=== PATIENT | male | born 1940 | race Caucasian/White ===

== ENCOUNTER → 2017-12-12 | Outpatient (CLI) | payer MEDICARE, OTHER ==
[~2017-12-12] MED LIST: COUM5TAB PO; IPRAAER IN; LIPI10TA OR; LORTA5 PO; METH750T2 PO; NIAC500T5 PO; PRIL40CA PO
--- NOTE | 2017-12-12 12:55 | RADRPT ---
EXAM DATE/TIME: 12/12/2017 11:41 [facility] COMPARISON: CTA CHEST W 3D RECON, August 22, 2011, 17:00. INDICATIONS : Lung nodules. RADIATION DOSE: 6.99 CTDIvol (mGy) MEDICAL HISTORY : Deep venous thrombosis. Gastroesophageal reflux disease. Kidney cancer. SURGICAL HISTORY : Chemotherapy. ENCOUNTER: Initial ACUITY: 1 day PAIN SCALE: 0/10 LOCATION: Bilateral chest TECHNIQUE: Volumetric scanning of the chest was performed. Using automated exposure control and adjustment of t he mA and/or kV according to patient size, radiation dose was kept as low as reasonably achievable to obtain optimal diagnostic quality images. DICOM format image data is available electronically for r eview and comparison. Follow-up recommendations for detected pulmonary nodules are based at a minimum on nodule size and pa tient risk factors according to Fleischner Society Guidelines. FINDINGS: LUNGS: There is severe centrilobular and bursal emphysema bilaterally. In the peripheral and subpleural righ t upper lobe there is a chronic traction bronchiectasis and parenchymal opacity. However, this findin g has decreased since the prior study. In the right lower lobe there is a centrally calcified stable 8mm pulmonary nodule. No other pulmonary nodules are seen. PLEURAE: There is no pleural thickening or pleural effusion. MEDIASTINUM: The heart and great vessels demonstrate no acute abnormality. There is coronary artery calcification . There is no mediastinal or hilar lymphadenopathy. AXILLAE: Within normal limits. No lymphadenopathy. MUSCULOSKELETAL: There are degenerative changes of the thoracic spine. MISCELLANEOUS: The visualized upper abdominal organs demonstrate no acute abnormality. A small hiatal hernia is pres ent. There is a partially visualized right upper pole renal cyst measuring approximately 2.7 cm. CONCLUSION: 1. Stable 8 mm centrally calcified right lower lobe nodule. Its stability since July 2011 is indic ative of a benign process. No other pulmonary nodule is identified. 2. Chronic traction bronchiectasis and airspace opacity in the right upper lobe. There is severe emph ysema. 3. No acute findings include coronary artery calcification and small hiatal hernia. Rohit Choi MD on December 12, 2017 at 12:46 Board Certified Radiologist. This report was verified electronically.
== END ==
LOC: HRSP 10:31
DX: J44.9 Chronic obstructive pulmonary disease, unspecified (principal); R91.8 Other nonspecific abnormal finding of lung field
CPT/HCPCS: 71250; 94060; 94726; 94729

== ENCOUNTER 2018-02-04 23:38 | Observation (INO) | payer MEDICARE, OTHER ==
[~2018-02-04] VITALS: Ht 167.6 cm; Wt 72.5 kg
[2018-02-04 23:52] VITALS: BP 190/80; PULSE 87; RESP 18; TEMP 97; O2SAT 95
[2018-02-05] VITALS (12 sets, daily range): BP systolic 85–209; BP diastolic 56–107; PULSE 67–86; RESP 16–20; TEMP 96–97.3; O2SAT 94–96
[2018-02-05] MEDS ORDERED: SODIUM CHLORIDE 0.9% FLUSH 10 ML FLUSH IVF PRN (00:15)
--- NOTE | 2018-02-05 00:19 | PD ---
HPI Chief Complaint: Slurred speech Time Seen by Provider: 00:07 Travel History International Travel<30 days: No Contact w/Intl Traveler<30days: No Traveled to known affect area: No History of Present Illness HPI The patient is a 78-year-old male that today he complains of a right temporal headache, aching pain with 6/10 intensity, and slurred speech about 1 hour ago. The speech has resolved but the headache is still there. The patient does not take aspirin. He is on Eliquis for blood clots including pulmonary emboli. He denies any nausea or vomiting. The slurred speech lasted for about 20 minutes. PFSH Past Medical History Arthritis: Yes Asthma: Yes Depression: Yes Heart Rhythm Problems: No Cancer: Yes (kidney) Cardiovascular Problems: No High Cholesterol: Yes Chemotherapy: Yes Chest Pain: No Congestive Heart Failure: No COPD: No Deep Vein Thrombosis: Yes Gastrointestinal Disorders: No GERD: Yes Genitourinary: No Hiatal Hernia: No Hypertension: No Kidney Stones: No Musculoskeletal: No Neurologic: No Reproductive: No Respiratory: No Renal Failure: No Sleep Apnea: No Ulcer: No Past Surgical History Abdominal Surgery: No Cardiac Surgery: No Ear Surgery: No Endocrine Surgery: No Eye Surgery: No Genitourinary Surgery: Yes Neurologic Surgery: No Oral Surgery: Yes Pacemaker: No Thoracic Surgery: No Other Surgery: Yes Social History Alcohol Use: No Tobacco Use: No Substance Use: No Allergies-Medications (Allergen,Severity, Reaction): Coded Allergies: No Known Allergies (Verified Adverse Reaction, Unknown, 02/05/18) Reported Meds & Prescriptions Reported Meds & Active Scripts Active Reported Combivent Respimat Inh (Ipratropium-Albuterol Inh) 20-100 Half-[address]/Act Aero 1 Puff INH QID Niacin 500 Mg Tab 500 Mg PO DAILY Eliquis (Apixaban) 2.5 Mg Tab 2.5 Mg PO BID Atorvastatin (Atorvastatin Calcium) 10 Mg Tab 10 Mg PO HS Omeprazole 40 Mg Cap 40 Mg PO DAILY Metformin (Metformin HCl) 500 Mg Tab 250 Mg PO BIDPC Maxzide-25 (Triamterene-Hydrochlorothiazide) 37.5-25 Mg Tab 1 Tab PO DAILY Gabapentin 300 Mg Cap 300 Mg PO TID Review of Systems Except as stated in HPI: all other systems reviewed are Neg Physical Exam Narrative GENERAL: The patient is alert, oriented 3 in minimal apparent distress with his headache. His vital signs show blood pressure 190/80 but are otherwise normal. SKIN: Focused skin assessment warm/dry. HEAD: Atraumatic. Normocephalic. EYES: Pupils equal and round. No scleral icterus. No injection or drainage. ENT: No nasal bleeding or discharge. Mucous membranes pink and moist. NECK: Trachea midline. No JVD. CARDIOVASCULAR: Regular rate and rhythm. No murmur appreciated. RESPIRATORY: No accessory muscle use. Clear to auscultation. Breath sounds equal bilaterally. GASTROINTESTINAL: Abdomen soft, non-tender, nondistended. Hepatic and splenic margins not palpable. MUSCULOSKELETAL: No obvious deformities. No clubbing. No cyanosis. No edema. NEUROLOGICAL: Awake and alert. No obvious cranial nerve deficits. Motor grossly within normal limits. Normal speech. PSYCHIATRIC: Appropriate mood and affect; insight and judgment normal. Data Data Last Documented VS Vital Signs Date Time Temp Pulse Resp B/P (MAP) Pulse Ox O2 Delivery O2 Flow Rate FiO2 02/05/18 01:39 79 16 96 Nasal Cannula 2.00 194/107 (136) 02/04/18 23:52 97.0 Orders Orders Electrocardiogram (02/05/18 00:08) Prothrombin Time / Inr (Pt) (02/05/18 00:08) Act Partial Throm Time (Ptt) (02/05/18 00:08) Complete Blood Count With Diff (02/05/18 00:08) Comprehensive Metabolic Panel (02/05/18 00:08) Troponin I (02/05/18 00:08) Urinalysis - C+S If Indicated (02/05/18 00:08) Ct Brain W/O Iv Contrast(Rout) (02/05/18 00:08) Ecg Monitoring (02/05/18 00:08) Iv Access Insert/Monitor (02/05/18 00:08) Oximetry (02/05/18 00:08) Sodium Chloride 0.9% Flush (Ns Flush) (02/05/18 00:15) Morphine Inj (Morphine Inj) (02/05/18 00:45) Ondansetron Inj (Zofran Inj) (02/05/18 01:00) Enalaprilat Inj (Vasotec Inj) (02/05/18 01:45) Place In Observation (02/05/18 ) Labs Laboratory Tests Test 02/05/18 00:35 02/05/18 01:00 White Blood Count 9.0 TH/MM3 Red Blood Count 5.78 MIL/MM3 Hemoglobin 16.5 GM/DL Hematocrit 49.6 % Mean Corpuscular Volume 85.9 FL Mean Corpuscular Hemoglobin 28.6 PG Mean Corpuscular Hemoglobin Concent 33.3 % Red Cell Distribution Width 13.1 % Platelet Count 200 TH/MM3 Mean Platelet Volume 8.4 FL Neutrophils (%) (Auto) 75.9 % Lymphocytes (%) (Auto) 17.1 % Monocytes (%) (Auto) 5.2 % Eosinophils (%) (Auto) 1.1 % Basophils (%) (Auto) 0.7 % Neutrophils # (Auto) 6.8 TH/MM3 Lymphocytes # (Auto) 1.5 TH/MM3 Monocytes # (Auto) 0.5 TH/MM3 Eosinophils # (Auto) 0.1 TH/MM3 Basophils # (Auto) 0.1 TH/MM3 CBC Comment AUTO DIFF Differential Comment AUTO DIFF CONFIRMED Platelet Estimate NORMAL Platelet Morphology Comment NORMAL Red Cell Morphology Comment NORMAL Prothrombin Time 11.3 SEC Prothromb Time International Ratio 1.1 RATIO Activated Partial Thromboplast Time 33.4 SEC Blood Urea Nitrogen 27 MG/DL Creatinine 1.50 MG/DL Random Glucose 152 MG/DL Total Protein 8.3 GM/DL Albumin 4.1 GM/DL Calcium Level 9.6 MG/DL Alkaline Phosphatase 92 U/L Aspartate Amino Transf (AST/SGOT) 14 U/L Alanine Aminotransferase (ALT/SGPT) 25 U/L Total Bilirubin 0.7 MG/DL Sodium Level 137 MEQ/L Potassium Level 3.7 MEQ/L Chloride Level 100 MEQ/L Carbon Dioxide Level 28.9 MEQ/L Anion Gap 8 MEQ/L Estimat Glomerular Filtration Rate 45 ML/MIN Troponin I LESS THAN 0.02 NG/ML Urine Color YELLOW Urine Turbidity CLEAR Urine pH 7.5 Urine Specific [place] 1.020 Urine Protein 100 mg/dL Urine Glucose (UA) 100 mg/dL Urine Ketones NEG mg/dL Urine Occult Blood TRACE Urine Nitrite NEG Urine Bilirubin NEG Urine Urobilinogen 0.2 MG/DL Urine Leukocyte Esterase NEG Urine RBC 3-5 /hpf Urine WBC 0-2 /hpf Urine Squamous Epithelial Cells 0-5 /hpf Urine Bacteria NONE /hpf Microscopic Urinalysis Comment CULT NOT INDICATED MDM Medical Decision Making Medical Screen Exam Complete: Yes Emergency Medical Condition: Yes Medical Record Reviewed: Yes Interpretation(s) The CT brain shows no acute intracranial disease. The complete metabolic profile shows a BUN of 27, creatinine 1.5, GFR 45 with glucose 152 and total protein 8.3 but is otherwise unremarkable. The troponin I is normal. The pro time is 11.3 with an INR of 1.1 and APTT is 33.4. The CBC is normal and the EKG is normal with normal sinus rhythm rate of 81. Differential Diagnosis TIA, CVA, electrolyte disorder, hypo-/hyperglycemia, anemia Narrative Course The patient has had a TIA. He is completely baseline at this time and has normal speech. He is already on Eliquis for pulmonary emboli. He will be admitted for possible MRI and neurological consultation. Diagnosis Primary Impression: TIA (transient ischemic attack) Admitting Information Admitting Physician Requests: Jean-Paul Ivy MD Feb 05, 2018 00:19
[2018-02-05] MEDS ORDERED: NIAC500T5 PO (00:28)
[2018-02-05] MEDS ORDERED: METF500T PO (00:28)
[2018-02-05] MEDS ORDERED: APIX2.5T PO (00:28)
[2018-02-05] MEDS ORDERED: MAXZTAB PO (00:28)
[2018-02-05] MEDS ORDERED: IPRAAER INH (00:28)
[2018-02-05] MEDS ORDERED: ATOR10TA15 PO (00:28)
[2018-02-05] MEDS ORDERED: GABA300C5 PO (00:28)
[2018-02-05] MEDS ORDERED: OMEP40CA2 PO (00:28)
--- NOTE | 2018-02-05 00:37 | RADRPT ---
EXAM DATE/TIME: 02/05/2018 00:21 [facility] COMPARISON: No previous studies available for comparison. INDICATIONS : Blurred vision and slurred speech. Cephalgia. RADIATION DOSE: 56.30 CTDIvol (mGy) MEDICAL HISTORY : Carcinoma, bladder. Deep venous thrombosis. SURGICAL HISTORY : None. ENCOUNTER: Initial ACUITY: 1 day PAIN SCALE: 6/10 LOCATION: cranial TECHNIQUE: Multiple contiguous axial images were obtained of the head. Using automated exposure control and adj ustment of the mA and/or kV according to patient size, radiation dose was kept as low as reasonably a chievable to obtain optimal diagnostic quality images. DICOM format image data is available electro nically for review and comparison. FINDINGS: CEREBRUM: The ventricles are normal for age. No evidence of midline shift, mass lesion, hemorrhage or acute in farction. No extra-axial fluid collections are seen. POSTERIOR FOSSA: The cerebellum and brainstem are intact. The 4th ventricle is midline. The cerebellopontine angle i s unremarkable. EXTRACRANIAL: The visualized portion of the orbits is intact. SKULL: The calvaria is intact. No evidence of skull fracture. CONCLUSION: No acute intracranial disease. Gerald Bourne MD on February 05, 2018 at 0:32 Board Certified Radiologist. This report was verified electronically.
[2018-02-05] MEDS ORDERED: MORPHINE SULFATE 4 MG/ML INJ IV PUSH ONE (00:45)
[2018-02-05 00:49] LABS: AUTOMATED NEUTROPHIL # 6.8 TH/MM3 (1.8-7.7); BASOPHIL # 0.1 TH/MM3 (0-0.2); BASOPHIL % 0.7 % (0.0-2.0); EOSINOPHIL # 0.1 TH/MM3 (0-0.4); EOSINOPHIL % 1.1 % (0.0-4.0); HEMATOCRIT 49.6 % (39.0-51.0); HEMOGLOBIN 16.5 GM/DL (13.0-17.0); LYMPH % 17.1 % (9.0-44.0); LYMPHOCYTE # 1.5 TH/MM3 (1.0-4.8); MEAN CELL VOLUME 85.9 FL (80.0-100.0); MEAN CORPUSCULAR HEMOGLOBIN 28.6 PG (27.0-34.0); MEAN CORPUSCULAR HGB CONC 33.3 % (32.0-36.0); MEAN PLATELET VOLUME 8.4 FL (7.0-11.0); MONO % 5.2 % (0.0-8.0); MONOCYTE # 0.5 TH/MM3 (0-0.9); NEUT % 75.9 % (16.0-70.0); PLATELET COUNT 200 TH/MM3 (150-450); RED BLOOD COUNT 5.78 MIL/MM3 (4.50-5.90); RED CELL DISTRIBUTION WIDTH 13.1 % (11.6-17.2)
[2018-02-05 01:00] LABS: CHLORIDE 100 MEQ/L (98-107); SODIUM (NA) 137 MEQ/L (136-145)
[2018-02-05] MEDS ORDERED: ONDANSETRON HCL 4 MG/2 ML VIAL IV ONE (01:00)
[2018-02-05 01:03] LABS: ALBUMIN 4.1 GM/DL (3.4-5.0); BICARBONATE 28.9 MEQ/L (21.0-32.0); BLOOD UREA NITROGEN 27 MG/DL (7-18); CALCIUM 9.6 MG/DL (8.5-10.1); GLUCOSE,RANDOM 152 MG/DL (74-106)
[2018-02-05 01:04] LABS: INTERNATIONAL NORMALIZED RATIO 1.1 RATIO; PROTHROMBIN TIME - PATIENT 11.3 SEC (9.8-11.6)
[2018-02-05 01:06] LABS: ALT (GPT) 25 U/L (12-78)
[2018-02-05 01:07] LABS: AST (GOT) 14 U/L (15-37); GLOMERULAR FILTRATION RATE 45 ML/MIN (>89)
[2018-02-05 01:08] LABS: TOTAL BILIRUBIN ADULT 0.7 MG/DL (0.2-1.0)
[2018-02-05 01:09] LABS: ALKALINE PHOSPHATASE 92 U/L (45-117); TOTAL PROTEIN 8.3 GM/DL (6.4-8.2)
[2018-02-05 01:11] LABS: TROPONIN I LESS THAN 0.02 NG/ML (0.02-0.05)
[2018-02-05 01:31] LABS: BILIRUBIN, URINE NEG (NEG); BLOOD, URINE TRACE (NEG); GLUCOSE,URINE 100 mg/dL (NEG); KETONE, URINE NEG (NEG); NITRITE,URINE NEG (NEG); PH, URINE 7.5 (5.0-8.5); URINE COLOR YELLOW (YELLW/STRAW); URINE LEUKOCYTE ESTERASE NEG (NEG)
[2018-02-05 01:37] LABS: SQUAMOUS EPITHELIAL CELL URINE 0-5 /hpf (0-5); WBC, URINE 0-2 /hpf (0-5)
[2018-02-05] MEDS ORDERED: ENALAPRILAT 2.5 MG/2 ML VIAL IV PUSH ONE (01:45)
[2018-02-05] MEDS ORDERED: GLUCAGON 1 MG/ML VIAL OTHER PRN ×2 (01:45→21:15)
[2018-02-05] MEDS ORDERED: SODIUM CHLORIDE 0.9% FLUSH 10 ML FLUSH IV FLUSH PRN ×2 (01:45→21:15)
[2018-02-05] MEDS ORDERED: DEXTROSE 50% IN WATER 50 ML VIAL(D50) IV PUSH PRN ×2 (01:45→21:15)
[2018-02-05] MEDS: HEPARIN SODIUM - SQ 10,000 UNITS/ML VIAL SQ SCH ×2 (03:01→17:24)
[2018-02-05] MEDS: INSULIN ASPART SUPPLEMENTAL SCALE SQ SCH ×4 (08:00→21:00)
[2018-02-05] MEDS: SODIUM CHLORIDE 0.9% FLUSH 10 ML FLUSH IV FLUSH SCH ×2 (09:12→21:00)
[2018-02-05] MEDS: ASPIRIN 325 MG TAB PO SCH (09:12)
[2018-02-05] MEDS ORDERED: ATORVASTATIN 40 MG TAB PO ONE (09:15)
[2018-02-05] MEDS ORDERED: NAPROXEN 500 MG TAB PO ONE (09:15)
--- NOTE | 2018-02-05 09:32 | HHI.HP ---
[facility] Stephon Linder MD Admission Diagnosis TIA Diagnoses: Chief Complaint: Headache, dizziness, difficulty speaking Travel History International Travel<30 Days: No Contact w/Intl Traveler <30 Da: No Traveled to Known Affected Are: No History of Present Illness 78-year-old white male admitted for possible strokelike symptoms. Patient was in his usual state of health until last night when his ongoing dizziness and right-sided headache from earlier in the week became worse and became associated with new onset nausea. Headache was photophobic but not phonophobic, mainly starts over his right eye travels to the right side of his head. Per the ER records his headache was 6 out of 10,. This was also associated with some expressive aphasia, says he knew what he wanted to say but just could not say it. He thought his speech was slurred. But he denies having a facial droop. Denies having any focal weakness in and of use 4 extremities. Reports having generalized weakness with difficulty walking but not limping to any one side. Denies any acute visual disturbances. Denies have any abdominal pain or chest pain. Patient is fully oriented at this time with intact insight. In the emergency room a head CT was performed which was negative. An EKG was performed which I independently reviewed which showed normal sinus rhythm. Patient's past medical history significant for pulmonary embolism as well as a DVT in the past, now takes Eliquis for it regularly. Denies having any strokes in the past. Social history significant for smoking which he says he stopped about 30 years ago. Denies drinking. Family history significant for hypertension. Review of Systems Except as stated in HPI: all other systems reviewed are Neg Past Family Social History Allergies: Coded Allergies: No Known Allergies (Verified Allergy, Unknown, 02/05/18) Physical Exam Vital Signs Vital Signs Date Time Temp Pulse Resp B/P (MAP) Pulse Ox O2 Delivery O2 Flow Rate FiO2 02/05/18 03:20 96.8 74 20 85/62 (70) 96 170/92 (118) 02/05/18 03:06 73 02/05/18 02:40 72 16 95 Nasal Cannula 2.00 147/79 (101) 02/05/18 02:08 75 16 95 Nasal Cannula 2.00 179/92 (121) 02/05/18 01:39 79 16 96 Nasal Cannula 2.00 194/107 (136) 02/05/18 00:18 86 18 94 Room Air 02/05/18 00:17 86 18 209/93 (131) 94 Room Air 02/04/18 23:52 97.0 87 18 190/80 (116) 95 Physical Exam VS: afebrile GENERAL: Lying in bed, awake, alert, no acute distress SKIN: Warm and dry. EYES: Pupils equal and round. No scleral icterus. No injection or drainage. ENT: No nasal bleeding or discharge. Mucous membranes pink and moist. CARDIOVASCULAR: Regular rate and rhythm. no murmurs RESPIRATORY: No accessory muscle use. Clear to auscultation. Breath sounds equal bilaterally. GASTROINTESTINAL: Abdomen soft, non-tender, nondistended. Extremities: No clubbing, cyanosis, or edema. No obvious deformities. MUSCULOSKELETAL: grossly intact ROM with 5/5 strength in upper and lower extremities proximally; adequate muscle bulk and tone for age and habitus NEUROLOGICAL: Awake and alert. No obvious cranial nerve deficits. No facial droop nor slurred speech noted. Patellar reflexes are intact +2 bilaterally. Intact sensation to light touch bilaterally over face, distal upper and lower extremities, intact plantar flexion dorsiflexion PSYCHIATRIC: Appropriate mood and affect; insight and judgment normal. Laboratory Laboratory Tests Test 02/05/18 00:35 02/05/18 01:00 White Blood Count 9.0 Red Blood Count 5.78 Hemoglobin 16.5 Hematocrit 49.6 Mean Corpuscular Volume 85.9 Mean Corpuscular Hemoglobin 28.6 Mean Corpuscular Hemoglobin Concent 33.3 Red Cell Distribution Width 13.1 Platelet Count 200 Mean Platelet Volume 8.4 Neutrophils (%) (Auto) 75.9 Lymphocytes (%) (Auto) 17.1 Monocytes (%) (Auto) 5.2 Eosinophils (%) (Auto) 1.1 Basophils (%) (Auto) 0.7 Neutrophils # (Auto) 6.8 Lymphocytes # (Auto) 1.5 Monocytes # (Auto) 0.5 Eosinophils # (Auto) 0.1 Basophils # (Auto) 0.1 CBC Comment AUTO DIFF Differential Comment AUTO DIFF CONFIRMED Platelet Estimate NORMAL Platelet Morphology Comment NORMAL Red Cell Morphology Comment NORMAL Prothrombin Time 11.3 Prothromb Time International Ratio 1.1 Activated Partial Thromboplast Time 33.4 Blood Urea Nitrogen 27 Creatinine 1.50 Random Glucose 152 Total Protein 8.3 Albumin 4.1 Calcium Level 9.6 Alkaline Phosphatase 92 Aspartate Amino Transf (AST/SGOT) 14 Alanine Aminotransferase (ALT/SGPT) 25 Total Bilirubin 0.7 Sodium Level 137 Potassium Level 3.7 Chloride Level 100 Carbon Dioxide Level 28.9 Anion Gap 8 Estimat Glomerular Filtration Rate 45 Troponin I LESS THAN 0.02 Urine Color YELLOW Urine Turbidity CLEAR Urine pH 7.5 Urine Specific [place] 1.020 Urine Protein 100 Urine Glucose (UA) 100 Urine Ketones NEG Urine Occult Blood TRACE Urine Nitrite NEG Urine Bilirubin NEG Urine Urobilinogen 0.2 Urine Leukocyte Esterase NEG Urine RBC 3-5 Urine WBC 0-2 Urine Squamous Epithelial Cells 0-5 Urine Bacteria NONE Microscopic Urinalysis Comment CULT NOT INDICATED Result Diagram: 02/05/18 0035 02/05/18 003 Imaging Last Impressions Head CT 02/05/18 0008 Signed Impressions: Service Date/Time: January 00:21 - CONCLUSION: No acute intracranial disease. Gerald Bourne MD Caprini VTE Risk Assessment Caprini VTE Risk Assessment: Mod/High Risk (score >= 2) Caprini Risk Assessment Model Point Value = 1 Point Value = 2 Point Value = 3 Point Value = 5 Age 41-60 Minor surgery BMI > 25 kg/m2 Swollen legs Varicose veins or History of unexplained or recurrent spontaneous Oral contraceptives or hormone replacement Sepsis (< 1 month) Serious lung disease, including pneumonia (< 1 month) Abnormal pulmonary function Acute myocardial infarction Congestive heart failure (< 1 month) History of inflammatory bowel disease Medical patient at bed rest Age 61-74 Arthroscopic surgery Major open surgery (> 45 min) Laparoscopic surgery (> 45 min) Malignancy Confined to bed (> 72 hours) Immobilizing plaster cast Central venous access Age >= 75 History of VTE Family history of VTE Factor V Leiden Prothrombin [id number] Lupus anticoagulant Anticardiolipin antibodies Elevated serum homocysteine Heparin-induced thrombocytopenia Other congenital or acquired thrombophilia Stroke (< 1 month) Elective arthroplasty Hip, pelvis, or leg fracture Acute spinal cord injury (< 1 month) Prophylaxis Regimen Total Risk Factor Score Risk Level Prophylaxis Regimen 0-1 Low Early ambulation 2 Moderate Order ONE of the following: *Sequential Compression Device (SCD) *Heparin 5000 units SQ BID 3-4 Higher Order ONE of the following medications: *Heparin 5000 units SQ TID *Enoxaparin/Lovenox 40 mg SQ daily (WT < 150 kg, CrCl > 30 mL/min) *Enoxaparin/Lovenox 30 mg SQ daily (WT < 150 kg, CrCl > 10-29 mL/min) *Enoxaparin/Lovenox 30 mg SQ BID (WT < 150 kg, CrCl > 30 mL/min) AND/OR *Sequential Compression Device (SCD) 5 or more Highest Order ONE of the following medications: *Heparin 5000 units SQ TID (Preferred with Epidurals) *Enoxaparin/Lovenox 40 mg SQ daily (WT < 150 kg, CrCl > 30 mL/min) *Enoxaparin/Lovenox 30 mg SQ daily (WT < 150 kg, CrCl > 10-29 mL/min) *Enoxaparin/Lovenox 30 mg SQ BID (WT < 150 kg, CrCl > 30 mL/min) AND *Sequential Compression Device (SCD) Assessment and Plan Assessment and Plan 78-year-old white male being admitted for possible strokelike symptoms Strokelike symptoms including expressive aphasia -Questionable TIA,, I suspect more likely ocular migraine variant -We will engage in permissive hypertension for the time being, CT head is negative, -MRI/MRA, echocardiogram, carotid ultrasound -We will give aspirin and Lipitor -speech therapy for expressive aphasia (which is not present at this time) -permissive HTN Headaches -Most likely an ocular migraine variant -will obtain ESR to r/o temporal arteritis -We will give one-time dose of naproxen 500 mg Neurology has been consulted to help decipher between TIA versus headache variant as the cause of symptoms upon presentation. If cleared with neurology, patient can possibly be discharged today. DM - LDSS Lovenox while inpt, may transition to eliquis upon discharge (for hx of VTEs). Fidel Bell MD Feb 05, 2018 09:32
--- NOTE | 2018-02-05 10:35 | RADRPT ---
EXAM DATE/TIME: 02/05/2018 08:37 [facility] COMPARISON: No previous studies available for comparison. INDICATIONS : Transient ischemic attack. MEDICAL HISTORY : Deep venous thrombosis. Hypercholesterolemia. Carcinoma, bladder. HTN. COPD. Asthma. Pulmonary emboli sm. GERD. Renal calculi. Arthritis. Diabetes. BPH. Depression. SURGICAL HISTORY : Bladder cancer removal x3. Chemotherapy. ENCOUNTER: Initial ACUITY: 1 day PAIN SCORE: 0/10 LOCATION: Bilateral neck PEAK SYSTOLIC VELOCITIES (cm/sec): ICA/CCA RATIO: Right: 1.4 Left: 0.8 ICA: Right: 80 Left: 62 CCA: Right: 59 Left: 80 ECA: Right: 112 Left: 96 VERTEBRAL: Right: 41 antegrade Left: 54 antegrade Elevated flow velocities and ICA/CCA ratios have been found to correlate with increased degrees of vessel stenosis, calculated as percentage of diameter relative to a normal segment of distal ICA/CCA FINDINGS: RIGHT CAROTID: There is mild atherosclerotic plaque in the carotid bulb and proximal internal artery. LEFT CAROTID: There is mild atherosclerotic plaque in the carotid bulb and proximal internal carotid artery. VERTEBRAL ARTERIES: Antegrade flow is seen in both vertebral arteries. MISCELLANEOUS: None. CONCLUSION: 1. Mild atherosclerotic plaque in the carotid bulbs and proximal internal carotid arteries bilaterall y. However, less than 50% stenosis is present within either internal carotid artery. 2. There is antegrade flow within both vertebral arteries. Rohit Choi MD on February 05, 2018 at 10:31 Board Certified Radiologist. This report was verified electronically.
[2018-02-05] MEDS: GABAPENTIN 300 MG CAP PO SCH ×2 (11:49→17:25)
[2018-02-05] MEDS: PANTOPRAZOLE SOD 40 MG DELAYED RELEASE TAB PO SCH (11:49)
[2018-02-05] MEDS: NIACIN 500 MG EXTENDED RELEASE TAB PO SCH (11:49)
[2018-02-05] MEDS ORDERED: NON-FORMULARY DRUG (Ipratropium-Albuterol Inh (Combivent Respimat Inh) 1 PUFF) INH SCH (13:00)
[2018-02-05] MEDS: ALBUTEROL SULFATE 90 MCG/ACT HFA 8 GM INHALER INH SCH ×3 (13:00→21:49)
--- NOTE | 2018-02-05 13:55 | RADRPT ---
EXAM DATE/TIME: 02/05/2018 10:07 [facility] COMPARISON: No previous studies available for comparison. INDICATIONS : CVA. Weakness in all four extremities for two days. MEDICAL HISTORY : Hypertension. Diabetes mellitus type 2. Carcinoma, bladder. SURGICAL HISTORY : Bladder cancer removed and bone spurs from jaw removed. ENCOUNTER: Initial ACUITY: 1 day PAIN SCORE: 0/10 LOCATION: Head. Please note a normal MRA of the brain does not entirely exclude the possibility of a small aneurysm, nor the possibility of distal intracranial vessel disease. TECHNIQUE: 3D time of flight MRA was performed. Source images, multiplanar STS MIP, and 3D volume MIP reconstru ctions were reviewed. FINDINGS: There is excellent visualization of the major intracranial arteries out to the second-order branch ve ssels. There is no evidence for aneurysm, vessel truncation or stenosis, and no evidence for vascula r malformation. 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 CONCLUSION: 1. Anatomic variant of the [place] as above. 2. Otherwise negative. Intracranial vessels are patent without aneurysmal disease. Tony Dupree MD on February 05, 2018 at 13:47 Board Certified Radiologist. This report was verified electronically.
--- NOTE | 2018-02-05 14:00 | RADRPT ---
EXAM DATE/TIME: 02/05/2018 10:07 [facility] COMPARISON: No previous studies available for comparison. INDICATIONS : CVA. Weakness in all four extremities for two days. MEDICAL HISTORY : Hypertension. Carcinoma, bladder. Diabetes mellitus type 2. SURGICAL HISTORY : Bladder cancer removed and bone spurs from jaw removed. ENCOUNTER: Initial ACUITY: 1 day PAIN SCORE: 0/10 LOCATION: head. TECHNIQUE: Multiplanar, multisequence MRI of the brain was performed without contrast. FINDINGS: CEREBRUM: The ventricles are normal for age. Minimal, symmetric cortical atrophy. No evidence of midline shift , mass lesion, hemorrhage or acute infarction. No extraaxial fluid collections are seen. The pituit guevara gland and suprasellar cistern are normal in configuration. WHITE MATTER: Mild periventricular small vessel ischemic demyelination. POSTERIOR FOSSA: The cerebellum and brainstem are intact. The 4th ventricle is midline. The cerebellopontine angle is unremarkable. The cerebellar tonsils are normal in position. DIFFUSION IMAGING: Punctate area of diffusion restriction in the posterior aspect of the right basal ganglia I believe r epresents T2 shine through as the same area shows increased signal on the ADC map. EXTRACRANIAL: The visualized portions of the orbits and paranasal sinuses are unremarkable. CONCLUSION: 1. Mild chronic changes with some cortical atrophy and periventricular small vessel ischemic demyelin ation. 2. Nothing acute. Tony Dupree MD on February 05, 2018 at 13:52 Board Certified Radiologist. This report was verified electronically.
--- NOTE | 2018-02-05 14:41 | HHI.FF ---
Face to Face Verification Diagnosis: (1) Unsteady gait Physical Therapy Order: Evaluate and Treat Occupational Therapy Order: Evaluate and Treat Home Health Nursing Order: Signs/symptoms of disease process Nursing assessment with vital signs I have seen patient Denilson Malik on 02/05/18. My clinical findings support the need for the requested home health care services because: Limited ability to care for self I certify that my clinical findings support that this patient is homebound because: Unsteady gait/balance Fidel Bell MD Feb 05, 2018 14:41
[2018-02-05 14:51] LABS: HEMOGLOBIN A1C 6.3 % (4.3-6.0)
--- NOTE | 2018-02-05 17:23 | ECHRPT ---
Indication: CVA/TIA CONCLUSIONS The left ventricular systolic function is low normal with an estimated ejection fraction in the rang e of 50- 55%. Wall thickness is normal. Normal left ventricular size. Trace aortic valve regurgitation. The pulmonary valve is not well visualized. BP: / HR: Rhythm: Technical Quality: FINDINGS LEFT VENTRICLE The left ventricular systolic function is low normal with an estimated ejection fraction in the rang e of 50- 55%. Wall thickness is normal. Normal left ventricular size. RIGHT VENTRICLE Normal right ventricular size and systolic function. LEFT ATRIUM The left atrial size is normal. RIGHT ATRIUM The right atrial size is normal. ATRIAL SEPTUM Normal atrial septal thickness without atrial level shunting by limited color doppler interrogation. AORTA The aortic root and proximal ascending aorta are normal in size on limited imaging. MITRAL VALVE Structurally normal mitral valve. No mitral valve stenosis or regurgitation. AORTIC VALVE Trace aortic valve regurgitation. TRICUSPID VALVE Structurally normal tricuspid valve. No tricuspid valve stenosis or regurgitation. PULMONARY VALVE The pulmonary valve is not well visualized. VESSELS The inferior vena cava is normal in size. PERICARDIUM No pericardial effusion. Agustín Snowden MD, FACC (Electronically Signed) Final Date:05 February 2018 17:23
[2018-02-05] MEDS ORDERED: SODIUM CHLORID 0.9% 500 ML INJ 500 ML IV ONE (20:15)
--- NOTE | 2018-02-05 21:16 | EKG ---
Date Performed: 02/05/2018 Time Performed: 00:17:11 PTAGE: 78 years EKG: Sinus rhythm Compared to previous tracing, sinus rate is slower NORMAL ECG PREVIOUS TRACING : 08/22/2011 15.35 DOCTOR: Dev Pierre Interpretating Date/Time 02/05/2018 21:14:27
--- NOTE | 2018-02-05 21:28 | MB ---
cc: Moreno Jimenez MD, PhD DATE: 02/05/2018 REASON FOR CONSULTATION: TIA versus neurologic migraine. HISTORY OF PRESENT ILLNESS: Mr. Malik is a very pleasant 78-year-old man, who has a history of DVT and PE. He was driving, had a sudden onset of double vision where he saw two lines on the road as well as slurred speech. He has been having a headache as well, which he describes as being right-sided. He does have a history of migraine headaches. His symptoms have largely resolved, but he has some mild speech difficulty. PAST MEDICAL HISTORY: History of deep venous thrombosis/pulmonary embolism for which he takes Eliquis, diabetes, history of bladder cancer. CURRENT MEDICATIONS: 1. Lipitor 40 mg daily. 2. Spiriva. 3. Neurontin 300 mg t.i.d. 4. Protonix 40 mg daily. 5. Aspirin 325 mg daily. 6. Subcutaneous heparin 5000 units b.i.d. NEUROLOGIC EXAMINATION: VITAL SIGNS: Blood pressure 129/60, pulse 73, respirations 20, temperature 97 degrees. HIGHER CORTICAL FUNCTION: Alert. Speech mildly dysarthric. Cranial nerves are intact. The extraocular movements are full. Pupils equal and reactive. 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 There is no drift. IMAGING: CT of the brain: No acute change present. MRI of the brain: Mild chronic ischemic changes, no acute stroke identified. MRA had a variant of the [place], otherwise normal intracranial vessels. Carotid ultrasound: Mild plaquing, but no significant stenosis of the carotid arteries. LABORATORY DATA: White count 9000, hemoglobin 16.5, hematocrit 49.6%, platelet count 200,000. Sedimentation rate is 2. Sodium is 137, potassium 3.7, chloride 100, CO2 of 28.9, BUN is 27, creatinine 1.5, GFR is 45, glucose 152. PT 11.3, INR 1.1, APTT 33.4. IMPRESSION: I suspect the episode is most likely a vertebrobasilar transient ischemic attack. RECOMMENDATION: Continue Eliquis and also add aspirin to the Eliquis. I would like to get an MRA of the vertebral arteries as well as an echocardiogram. Moreno Jimenez MD, PhD JOCY/rt , 09:06 PM , 09:27 PM
[2018-02-06] VITALS (7 sets, daily range): BP systolic 131–159; BP diastolic 77–84; PULSE 70–80; RESP 16–18; TEMP 96.2–98.3; O2SAT 92–95
[2018-02-06] MEDS: HEPARIN SODIUM - SQ 10,000 UNITS/ML VIAL SQ SCH (01:45)
[2018-02-06 06:38] LABS: AUTOMATED NEUTROPHIL # 4.9 TH/MM3 (1.8-7.7); BASOPHIL % 0.6 % (0.0-2.0); EOSINOPHIL # 0.1 TH/MM3 (0-0.4); EOSINOPHIL % 1.9 % (0.0-4.0); HEMATOCRIT 39.4 % (39.0-51.0); HEMOGLOBIN 13.5 GM/DL (13.0-17.0); LYMPH % 24.2 % (9.0-44.0); LYMPHOCYTE # 1.9 TH/MM3 (1.0-4.8); MEAN CELL VOLUME 85.7 FL (80.0-100.0); MEAN CORPUSCULAR HEMOGLOBIN 29.4 PG (27.0-34.0); MEAN CORPUSCULAR HGB CONC 34.3 % (32.0-36.0); MEAN PLATELET VOLUME 8.5 FL (7.0-11.0); MONO % 10.1 % (0.0-8.0); MONOCYTE # 0.8 TH/MM3 (0-0.9); NEUT % 63.2 % (16.0-70.0); PLATELET COUNT 165 TH/MM3 (150-450); RED CELL DISTRIBUTION WIDTH 13.4 % (11.6-17.2); WHITE BLOOD COUNT 7.7 TH/MM3 (4.0-11.0)
[2018-02-06 06:49] LABS: BICARBONATE 28.2 MEQ/L (21.0-32.0); CALCIUM 8.1 MG/DL (8.5-10.1); CREATININE 2.6 MG/DL (0.60-1.30)
[2018-02-06] MEDS: INSULIN ASPART SUPPLEMENTAL SCALE SQ SCH ×4 (08:20→21:00)
[2018-02-06] MEDS: ALBUTEROL SULFATE 90 MCG/ACT HFA 8 GM INHALER INH SCH ×4 (08:21→21:21)
[2018-02-06] MEDS: TIOTROPIUM BROMIDE 18 MCG INH INH SCH (08:23)
[2018-02-06] MEDS: GABAPENTIN 300 MG CAP PO SCH ×3 (08:26→17:21)
[2018-02-06] MEDS: SODIUM CHLORIDE 0.9% FLUSH 10 ML FLUSH IV FLUSH SCH ×2 (08:26→21:00)
[2018-02-06] MEDS: TRIAMTERENE/HCTZ 37.5 MG/25 MG TAB PO SCH (08:27)
[2018-02-06] MEDS: APIXABAN 2.5 MG TABLET PO SCH ×2 (08:27→21:21)
[2018-02-06] MEDS: NIACIN 500 MG EXTENDED RELEASE TAB PO SCH (08:27)
[2018-02-06] MEDS: PANTOPRAZOLE SOD 40 MG DELAYED RELEASE TAB PO SCH (08:28)
[2018-02-06] MEDS: ASPIRIN 325 MG TAB PO SCH (08:28)
[2018-02-06] MEDS ORDERED: SODIUM CHLORIDE 0.9% FLUSH 10 ML FLUSH IV FLUSH SCH (09:00)
[2018-02-06 10:48] LABS: CHOLESTEROL/ HDL RATIO 3.04 RATIO; HDL CHOLESTEROL 40.4 MG/DL (40.0-60.0)
--- NOTE | 2018-02-06 12:15 | RADRPT ---
EXAM DATE/TIME: 02/06/2018 10:33 [place] COMPARISON: No previous studies available for comparison. INDICATIONS : Dissection. MEDICAL HISTORY : Carcinoma, bladder. Diabetes mellitus type 2. Hypertension. SURGICAL HISTORY : Bladder surgery, teeth, bone spur removal. ENCOUNTER: Initial ACUITY: 2 day PAIN SCORE: 0/10 LOCATION: neck Percent stenosis is calculated using the diameter of the stenotic region over the diameter of the nor mal distal internal carotid artery. TECHNIQUE: 3D time of flight MRA of the extracranial circulation was performed using a neurovascular coil. Post processing was performed including rotating subvolume maximum intensity projections of each carotid artery, rotating full-volume maximum intensity projections of both carotid arteries, sagittal and cor onal sliding thin-slab reformations of each carotid artery, and left oblique sliding thin slab reform ation through the aortic arch to include the origin of the arch branch vessels. FINDINGS: Examination is limited due to body habitus and motion artifact. AORTIC ARCH: There is a three vessel origin of the great vessels from the aorta. No evidence of ostial narrowing. RIGHT CAROTID: The common carotid artery is intact. The carotid bulb has a normal configuration without ulceration or significant narrowing. Internal carotid artery is patent without or definitive dissection or signi ficant flow-limiting stenosis. External carotid arteries patent. LEFT CAROTID: The common carotid artery is intact. The carotid bulb has a normal configuration without ulceration or significant narrowing. Internal carotid artery is patent with less than 30% stenosis of the proxi mal internal carotid artery. Intracranial arteries otherwise patent without definitive dissection or significant additional stenoses External carotid arteries patent. VERTEBRALS: The vertebral arteries have a symmetric diameter. No significant stenotic lesions are seen. CONCLUSION: 1. Examination is limited due to body habitus and motion artifact. 2. No significant flow-limiting stenosis or definitive dissection as questioned. CTA examination woul d be beneficial in further evaluation if there is continued clinical concern although likely not feas ible given patient's azotemia. Reno Mendez MD on February 06, 2018 at 12:06 Board Certified Radiologist. This report was verified electronically.
--- NOTE | 2018-02-06 14:35 | HHI.PR ---
Subjective Remarks MRA shows no acute abnormalities. Echocardiogram shows no etiology for CVA or TIA. Patient still has some difficulty speaking compared to baseline. No other deficits are noted. Objective Vital Signs Date Time Temp Pulse Resp B/P (MAP) Pulse Ox O2 Delivery O2 Flow Rate FiO2 02/06/18 11:59 96.2 70 16 147/82 (103) 93 02/06/18 08:00 75 02/06/18 08:00 96.2 70 18 131/79 (96) 94 02/06/18 04:00 96.9 72 18 149/83 (105) 95 02/05/18 23:27 96 21 02/05/18 20:00 97.1 73 20 129/60 (83) 96 02/05/18 15:50 97.3 68 20 129/65 (86) 94 I/O 02/05/18 02/05/18 02/05/18 02/06/18 02/06/18 02/06/18 07:00 15:00 23:00 07:00 15:00 23:00 Intake Total 480 ml 1760 ml 500 ml Output Total 800 ml 1800 ml 1200 ml Balance 480 ml 960 ml -1800 ml -700 ml Intake Oral 480 ml 1760 ml IV Total 500 ml Output Urine Total 800 ml 1800 ml 1200 ml # Voids 1 1 # Bowel Movements 0 0 Result Diagram: 02/06/18 0555 02/06/18 05 Objective Remarks GENERAL: NAD, A&Ox3 HEAD: Normocephalic. NECK: Supple, trachea midline. No lymphadenopathy. EYES: No scleral icterus. No injection or drainage. CARDIOVASCULAR: Regular rate and rhythm without murmurs, gallops, or rubs. RESPIRATORY: Breath sounds equal bilaterally. No accessory muscle use. GASTROINTESTINAL: Abdomen soft, non-tender, nondistended. MUSCULOSKELETAL: No cyanosis, or edema. SKIN: Warm and dry. NEURO: No focal neurological deficitis. A/P Problem List: (1) TIA (transient ischemic attack) ICD Code: G45.9 - Transient cerebral ischemic attack, unspecified Status: Acute Assessment and Plan 78-year-old male admitted secondary to right-handed weakness and dysarthria, expressive aphasia TIA Expressive aphasia, dysarthria Imaging is negative so far Neurology following Continue aspirin Continue Lipitor Continue speech therapy Headaches Improved Continue to monitor clinically Diabetes mellitus type 2 Follow blood sugars Insulin sliding scale Diabetic diet DVT prophylaxis Dante Oscar MD Feb 06, 2018 14:34
[2018-02-06] MEDS ORDERED: WALKER WHEELS/F1 MIS (14:37)
[2018-02-06] MEDS ORDERED: TAMSULOSIN HCL 0.4 MG CAP PO ONE (14:45)
--- NOTE | 2018-02-06 19:58 | HHI.PR ---
Review/Management Diagnosis probable vertebro-basilar tia Plan continue eliquis and asa 325 mg daily ok form neuro standpoint to dc tomorrow if he has no additional TIA symptoms Please schedule outpatient follow up with me in office 2-3 weeks Diagnosis/Plan: Subjective Subjective Comments Pt had an episode of slurred speech and left sided weakness earlier this am which resolved after several minutes and he has had no further episodes Now on eliquis in addition to asa Active Medications Current Medications Medications (Trade) Dose Ordered Sig/Sampson Route Start Time Stop Time Status Last Admin (NS Flush) 2 ml BID IV FLUSH 02/05/18 09:00 02/06/18 08:26 (NS Flush) 2 ml UNSCH PRN IV FLUSH 02/05/18 01:45 (Aspirin) 325 mg DAILY PO 02/05/18 09:00 02/06/18 08:28 (D50w (Vial) Inj) 50 ml UNSCH PRN IV PUSH 02/05/18 01:45 (Glucagon Inj) 1 mg UNSCH PRN OTHER 02/05/18 01:45 (Lipitor) 40 mg HS PO 02/06/18 21:00 (Neurontin) 300 mg TID PO 02/05/18 13:00 02/06/18 17:21 (Slo-Niacin) 500 mg DAILY PO 02/05/18 10:15 02/06/18 08:27 (Protonix) 40 mg DAILY PO 02/05/18 10:15 02/06/18 08:28 (Spiriva Inh) 18 mcg DAILY INH 02/06/18 09:00 02/06/18 08:23 (Proair Hfa Inh) 1 puff QID INH 02/05/18 13:00 02/06/18 17:20 (NovoLOG SUPPLEMENTAL SCALE) 1 ACHS SQ 02/06/18 08:00 (Eliquis) 2.5 mg BID PO 02/06/18 09:00 02/06/18 08:27 (Maxzide 37.5-25 Mg) 1 tab DAILY PO 02/06/18 09:00 02/06/18 08:27 (Flomax) 0.4 mg DAILY PO 02/07/18 09:00 Allergies Allergies Coded Allergies No Known Allergies (Verified Allergy, Unknown, 02/05/18) Exam I&O / VS 02/06/18 02/06/18 02/07/18 15:00 23:00 07:00 Intake Total 500 ml Output Total 1200 ml 1800 ml Balance -700 ml -1800 ml IV Total 500 ml Output Urine Total 1200 ml 1800 ml Vital Signs Date Time Temp Pulse Resp B/P (MAP) Pulse Ox O2 Delivery O2 Flow Rate FiO2 02/06/18 16:00 97.5 76 16 153/84 (107) 92 02/06/18 15:20 93 21 02/06/18 15:00 74 02/06/18 11:59 96.2 70 16 147/82 (103) 93 02/06/18 08:00 75 02/06/18 08:00 96.2 70 18 131/79 (96) 94 02/06/18 04:00 96.9 72 18 149/83 (105) 95 02/05/18 23:27 96 21 02/05/18 20:00 97.1 73 20 129/60 (83) 96 Exam Comments alert, speech mildly dysarthric, but patient feels his baseline CN 2-12 normal MOTOR 5/5 BUE Objective Radiology Results MRA neck--limited exam. No gross abnormalities ECHO--neg Micro and Labs Laboratory Tests Test 02/06/18 05:55 White Blood Count 7.7 Red Blood Count 4.60 Hemoglobin 13.5 Hematocrit 39.4 Mean Corpuscular Volume 85.7 Mean Corpuscular Hemoglobin 29.4 Mean Corpuscular Hemoglobin Concent 34.3 Red Cell Distribution Width 13.4 Platelet Count 165 Mean Platelet Volume 8.5 Neutrophils (%) (Auto) 63.2 Lymphocytes (%) (Auto) 24.2 Monocytes (%) (Auto) 10.1 Eosinophils (%) (Auto) 1.9 Basophils (%) (Auto) 0.6 Neutrophils # (Auto) 4.9 Lymphocytes # (Auto) 1.9 Monocytes # (Auto) 0.8 Eosinophils # (Auto) 0.1 Basophils # (Auto) 0.0 CBC Comment DIFF FINAL Differential Comment Blood Urea Nitrogen 40 Creatinine 2.60 Random Glucose 103 Calcium Level 8.1 Sodium Level 132 Potassium Level 3.7 Chloride Level 96 Carbon Dioxide Level 28.2 Anion Gap 8 Estimat Glomerular Filtration Rate 24 Triglycerides Level 170 Cholesterol Level 123 LDL Cholesterol 49 HDL Cholesterol 40.4 Cholesterol/HDL Ratio 3.04 Moreno Jimenez MD PhD Feb 06, 2018 19:58
[2018-02-06] MEDS: ATORVASTATIN 40 MG TAB PO SCH (21:21)
[2018-02-07] VITALS (8 sets, daily range): BP systolic 148–219; BP diastolic 79–98; PULSE 62–88; RESP 16–18; TEMP 96.1–98; O2SAT 92–97
[2018-02-07] MEDS: INSULIN ASPART SUPPLEMENTAL SCALE SQ SCH ×4 (08:00→21:00)
[2018-02-07] MEDS: SODIUM CHLORIDE 0.9% FLUSH 10 ML FLUSH IV FLUSH SCH ×2 (09:00→21:00)
[2018-02-07] MEDS: ALBUTEROL SULFATE 90 MCG/ACT HFA 8 GM INHALER INH SCH ×4 (09:00→21:00)
[2018-02-07] MEDS: TRIAMTERENE/HCTZ 37.5 MG/25 MG TAB PO SCH (09:00)
[2018-02-07] MEDS: NIACIN 500 MG EXTENDED RELEASE TAB PO SCH (09:00)
[2018-02-07] MEDS: GABAPENTIN 300 MG CAP PO SCH ×3 (09:08→17:19)
[2018-02-07] MEDS: APIXABAN 2.5 MG TABLET PO SCH ×2 (09:08→21:02)
[2018-02-07] MEDS: TAMSULOSIN HCL 0.4 MG CAP PO SCH (09:08)
[2018-02-07] MEDS: TIOTROPIUM BROMIDE 18 MCG INH INH SCH (09:08)
[2018-02-07] MEDS: PANTOPRAZOLE SOD 40 MG DELAYED RELEASE TAB PO SCH (09:08)
[2018-02-07] MEDS: ASPIRIN 325 MG TAB PO SCH (09:08)
[2018-02-07] MEDS ORDERED: ATOR40TA16 PO (11:31)
[2018-02-07 12:41] LABS: BICARBONATE 27.3 MEQ/L (21.0-32.0); CALCIUM 9.3 MG/DL (8.5-10.1); CREATININE 2.2 MG/DL (0.60-1.30)
--- NOTE | 2018-02-07 12:54 | HHI.PR ---
Subjective Remarks Nursing denies any deteriorations last night. No reports of any further episodes of slurred speech. Patient himself says he feels better. There was a noted substantial increase in serum creatinine over the last 2 days. Objective Vital Signs Date Time Temp Pulse Resp B/P (MAP) Pulse Ox O2 Delivery O2 Flow Rate FiO2 02/07/18 12:00 97.0 88 18 219/88 (131) 94 02/07/18 08:00 86 18 183/85 (117) 92 02/07/18 07:44 78 02/07/18 04:00 97.8 78 16 166/79 (108) 95 02/07/18 00:19 98.0 79 18 148/79 (102) 97 02/06/18 20:00 98.3 80 16 159/77 (104) 95 02/06/18 16:00 97.5 76 16 153/84 (107) 92 02/06/18 15:20 93 21 02/06/18 15:00 74 I/O 02/06/18 02/06/18 02/06/18 02/07/18 02/07/18 02/07/18 07:00 15:00 23:00 07:00 15:00 23:00 Intake Total 500 ml 0 ml Output Total 1800 ml 1200 ml 1800 ml 1200 ml 1100 ml Balance -1800 ml -700 ml -1800 ml -1200 ml -1100 ml IV Total 500 ml 0 ml Output Urine Total 1800 ml 1200 ml 1800 ml 1200 ml 1100 ml # Bowel Movements 0 2 Result Diagram: 02/06/18 0555 02/07/18 1140 Objective Remarks No lower extremity edema, lungs are clear bilaterally, extraocular motions intact, no slurred speech, uvula midline, tongue midline A/P Assessment and Plan TIA Expressive aphasia, dysarthria Imaging is negative so far Neurology following -clear for discharge from their standpoint pending no further episodes Continue aspirin Continue Lipitor Continue speech therapy eliquis also per neurology Acute kidney injury -Starting normal saline bolus, followed by IV hydration, repeat BMP in a.m. -hold triamterene-hctz Headaches Improved Continue to monitor clinically Diabetes mellitus type 2 Follow blood sugars Insulin sliding scale Diabetic diet Fidel Bell MD Feb 07, 2018 12:54
[2018-02-07] MEDS ORDERED: SODIUM CHLOR 0.9% 1000 ML INJ 1,000 ML IV ONE (13:00)
[2018-02-07] MEDS: SODIUM CHLOR 0.9% 1000 ML INJ 1,000 ML IV SCH (13:00)
[2018-02-07] MEDS: ATORVASTATIN 40 MG TAB PO SCH (21:01)
[2018-02-08] VITALS: BP 184/96; PULSE 84; RESP 20; TEMP 96.8; O2SAT 95
[2018-02-08 04:00] VITALS: BP 186/90; PULSE 75; RESP 20; TEMP 96.8; O2SAT 93
[2018-02-08 08:00] VITALS: BP 236/113; PULSE 76; RESP 18; TEMP 97; O2SAT 94
[2018-02-08] MEDS: INSULIN ASPART SUPPLEMENTAL SCALE SQ SCH ×2 (08:00→11:01)
[2018-02-08] MEDS ORDERED: cloNIDine HCL 0.1 MG TAB PO PRN (08:45)
[2018-02-08] MEDS: TIOTROPIUM BROMIDE 18 MCG INH INH SCH (09:06)
[2018-02-08] MEDS: ASPIRIN 325 MG TAB PO SCH (09:08)
[2018-02-08] MEDS: NIACIN 500 MG EXTENDED RELEASE TAB PO SCH (09:08)
[2018-02-08] MEDS: GABAPENTIN 300 MG CAP PO SCH (09:09)
[2018-02-08] MEDS: PANTOPRAZOLE SOD 40 MG DELAYED RELEASE TAB PO SCH (09:09)
[2018-02-08] MEDS: APIXABAN 2.5 MG TABLET PO SCH (09:09)
[2018-02-08] MEDS: TAMSULOSIN HCL 0.4 MG CAP PO SCH (09:09)
[2018-02-08] MEDS: ALBUTEROL SULFATE 90 MCG/ACT HFA 8 GM INHALER INH SCH ×2 (09:11→14:31)
[2018-02-08] MEDS: SODIUM CHLORIDE 0.9% FLUSH 10 ML FLUSH IV FLUSH SCH (09:11)
[2018-02-08] MEDS: NIFEdipine 10 MG CAP PO SCH ×2 (10:51→10:52)
[2018-02-08] MEDS ORDERED: CARVEDILOL 3.125 MG TAB PO SCH (11:00)
[2018-02-08] MEDS: SODIUM CHLOR 0.9% 1000 ML INJ 1,000 ML IV SCH (11:01)
[2018-02-08 11:03] LABS: CALCIUM 9.4 MG/DL (8.5-10.1)
[2018-02-08 11:04] LABS: BICARBONATE 25.6 MEQ/L (21.0-32.0)
[2018-02-08 11:07] LABS: CREATININE 1.7 MG/DL (0.60-1.30)
[2018-02-08 11:15] VITALS: BP 209/103
[2018-02-08 11:57] VITALS: BP 120/82
[2018-02-08 12:00] VITALS: BP 120/82; PULSE 94; RESP 18; TEMP 96.9; O2SAT 93
[2018-02-08] MEDS ORDERED: CARV3.12 PO (12:13)
[2018-02-08] MEDS ORDERED: GLIM1TAB PO (12:15)
[2018-02-08] MEDS ORDERED: ASPI81TA23 PO (12:15)
[2018-02-08] MEDS ORDERED: TAMS5CAP PO (12:15)
--- NOTE | 2018-02-08 12:21 | HHI.DCPOC ---
Discharge Care Plan Diagnosis: (1) Hypertensive urgency (2) Acute kidney injury (3) TIA (transient ischemic attack) (4) Unsteady gait (5) Bladder atony Goals to Promote Your Health * To prevent worsening of your condition and complications * To maintain your health at the optimal level Directions to Meet Your Goals Take your medications as prescribed Follow your dietary instruction Follow activity as directed Keep your appointments as scheduled Take your immunizations and boosters as scheduled If your symptoms worsen call your PCP, if no PCP go to Urgent Care Center or Emergency Room Smoking is Dangerous to Your Health. Avoid second hand smoke Call the 24-hour hour crisis hotline for domestic abuse at Fidel Bell MD Feb 08, 2018 12:21
--- NOTE | 2018-02-08 12:26 | HHI.DS ---
Discharge Summary Admission Date Feb 05, 2018 at 01:50 Discharge Date: Feb 08, 2018 Admitting Diagnosis TIA Brief History - From Admission 78-year-old white male admitted for possible strokelike symptoms. Patient was in his usual state of health until last night when his ongoing dizziness and right-sided headache from earlier in the week became worse and became associated with new onset nausea. Headache was photophobic but not phonophobic, mainly starts over his right eye travels to the right side of his head. Per the ER records his headache was 6 out of 10,. This was also associated with some expressive aphasia, says he knew what he wanted to say but just could not say it. He thought his speech was slurred. But he denies having a facial droop. Denies having any focal weakness in and of use 4 extremities. Reports having generalized weakness with difficulty walking but not limping to any one side. Denies any acute visual disturbances. Denies have any abdominal pain or chest pain. Patient is fully oriented at this time with intact insight. In the emergency room a head CT was performed which was negative. An EKG was performed which I independently reviewed which showed normal sinus rhythm. Patient's past medical history significant for pulmonary embolism as well as a DVT in the past, now takes Eliquis for it regularly. Denies having any strokes in the past. Social history significant for smoking which he says he stopped about 30 years ago. Denies drinking. Family history significant for hypertension. CBC/BMP: 02/06/18 0555 02/08/18 1040 Significant Findings Laboratory Tests Test 02/06/18 05:55 02/07/18 11:40 02/08/18 10:40 Monocytes (%) (Auto) 10.1 % (0.0-8.0) Blood Urea Nitrogen 40 MG/DL (7-18) 42 MG/DL (7-18) 34 MG/DL (7-18) Creatinine 2.60 MG/DL (0.60-1.30) 2.20 MG/DL (0.60-1.30) 1.70 MG/DL (0.60-1.30) Calcium Level 8.1 MG/DL (8.5-10.1) Sodium Level 132 MEQ/L (136-145) Chloride Level 96 MEQ/L (98-107) Estimat Glomerular Filtration Rate 24 ML/MIN (>89) 29 ML/MIN (>89) 39 ML/MIN (>89) Triglycerides Level 170 MG/DL (42-150) Random Glucose 202 MG/DL (74-106) 207 MG/DL (74-106) Pt Condition on Discharge: Stable Discharge Disposition: Disch w/ Home Health Serv Discharge Time: > 30 minutes Discharge Instructions DIET: Follow Instructions for: Diabetic Diet Activities you can perform: See Additionl Instruction Other Activity Instructions: per PT recs with walker Follow up Referrals: Neurology - 2 Weeks with Moreno Jimenez MD PhD PCP Follow-up - 3-5 Days Urology - 3-5 Days with John Paul Gavin DO New Medications: Aspirin DR (Aspirin EC) 81 Mg Tabdr 81 MG PO DAILY for Stroke Prevention, #30 TAB 0 Refills Carvedilol (Carvedilol) 3.125 Mg Tab 3.125 MG PO BID, #60 TAB 0 Refills Glimepiride (Glimepiride) 1 Mg Tab 1 MG PO DAILY for Blood Sugar Management, #30 TAB 0 Refills Take with breakfast or first main meal Walker with Front Wheels (Walker with Front Wheels) 1 Mis Mis EA .XX DIRECTED for Weakness, #1 0 Refills Atorvastatin (Atorvastatin) 40 Mg Tab 40 MG PO HS for Stroke Prevention, #30 TAB Tamsulosin (Flomax) 0.4 Mg Cap 0.4 MG PO HS for urinary retention, #30 CAP Continued Medications: Apixaban (Eliquis) 2.5 Mg Tab 2.5 MG PO BID for Blood Clot Prevention, TAB 0 Refills Gabapentin (Gabapentin) 300 Mg Cap 300 MG PO TID, #90 CAP 0 Refills Ipratropium-Albuterol Inh (Combivent Respimat Inh) 20-100 Senior Living/Act Aero 1 PUFF INH QID for Asthma Management, #1 INHALER 0 Refills Niacin (Niacin) 500 Mg Tab 500 MG PO DAILY for Cholesterol Management, #30 TAB 0 Refills Omeprazole (Omeprazole) 40 Mg Cap 40 MG PO DAILY, #30 CAP 0 Refills Discontinued Medications: Atorvastatin (Atorvastatin) 10 Mg Tab 10 MG PO HS for Cholesterol Management, #30 TAB 0 Refills Metformin (Metformin) 500 Mg Tab 250 MG PO BIDPC for Blood Sugar Management, #60 TAB 0 Refills Triamterene-Hydrochlorothiazide (Maxzide-25) 37.5-25 Mg Tab 1 TAB PO DAILY, #30 TAB 0 Refills Fidel Bell MD Feb 08, 2018 12:25
[2018-02-08] MEDS ORDERED: GABAPENTIN 300 MG CAP PO SCH (21:00)
== END 2018-02-08 15:53 | disposition home or self-care (01) ==
LOC: PHED 23:38 → PHEDA 02-05 01:50 → PH3B 02-05 02:50
PROVIDERS: ADMIT Hospitalist; ATTEND Hospitalist
DX: I63.9 Cerebral infarction, unspecified (principal); I16.0 Hypertensive urgency; R26.2 Difficulty in walking, not elsewhere classified; N17.9 Acute kidney failure, unspecified; I10 Essential (primary) hypertension; E11.9 Type 2 diabetes mellitus without complications; G43.109 Migraine with aura, not intractable, without status migrainosus; N31.2 Flaccid neuropathic bladder, not elsewhere classified; Z79.01 Long term (current) use of anticoagulants; Z79.82 Long term (current) use of aspirin; Z85.51 Personal history of malignant neoplasm of bladder; Z86.711 Personal history of pulmonary embolism; Z86.718 Personal history of other venous thrombosis and embolism; Z82.49 Family history of ischemic heart disease and other diseases of the circulatory system
CPT/HCPCS: 70450; 70544; 70547; 70551; 80048; 80053; 80061; 81001; 82948; 83036; 84484; 85025; 85610; 85652; 85730; 92523; 93005; 93306; 93880; 96361; 96372; 96374; 96375; 97110; 97116; 97162; 97167; 99285; G0378; G8987; G8988; G8989; G9162; G9163; G9164; J1644; J1815; J2270; J2405; J7030; J7040

== ENCOUNTER → 2018-03-12 | Outpatient (CLI) | DX: I10 Essential (primary) hypertension (principal) ==

== ENCOUNTER 2018-04-16 10:19 | Inpatient (IN) | payer MEDICARE, OTHER ==
[2018-04-16] VITALS (23 sets, daily range): BP systolic 98–170; BP diastolic 59–92; PULSE 66–104; RESP 15–28; TEMP 97.5–98.7; O2SAT 81–98
[~2018-04-16] VITALS: Ht 167.6 cm; Wt 75.8 kg
[~2018-04-16 10:19] MED LIST changes: +APIX2.5T PO; +ASPI81TA23 PO; +ATOR40TA16 PO; +CARV3.12 PO; -COUM5TAB PO; +GABA300C5 PO; +GLIM1TAB PO; -IPRAAER IN; +IPRAAER INH; -LIPI10TA OR; -LORTA5 PO; -METH750T2 PO; +OMEP40CA2 PO; -PRIL40CA PO; +TAMS5CAP PO; +WALKER WHEELS/F1 MIS
[2018-04-16] MEDS ORDERED: methylPREDNISolone SOD SUCC 125 MG/2 ML VIAL IV PUSH ONE (10:45)
[2018-04-16] MEDS ORDERED: SODIUM CHLORIDE 0.9% FLUSH 10 ML FLUSH IVF PRN (10:45)
[2018-04-16] MEDS: RESP: ALBUTEROL 2.5 MG/IPRATROPIUM 0.5 MG NEB (SCH) INH ×2 (10:45→10:46)
[2018-04-16] MEDS ORDERED: AMLO10TA2 PO (10:48)
[2018-04-16] MEDS ORDERED: TRIA1CAP6 PO (10:48)
[2018-04-16 10:53] LABS: AUTOMATED NEUTROPHIL # 7.4 TH/MM3 (1.8-7.7); BASOPHIL # 0.4 TH/MM3 (0-0.2); BASOPHIL % 4.4 % (0.0-2.0); EOSINOPHIL # 0.1 TH/MM3 (0-0.4); EOSINOPHIL % 0.9 % (0.0-4.0); HEMATOCRIT 48.4 % (39.0-51.0); HEMOGLOBIN 15.6 GM/DL (13.0-17.0); LYMPH % 15.8 % (9.0-44.0); LYMPHOCYTE # 1.6 TH/MM3 (1.0-4.8); MEAN CELL VOLUME 89.4 FL (80.0-100.0); MEAN CORPUSCULAR HEMOGLOBIN 28.8 PG (27.0-34.0); MEAN CORPUSCULAR HGB CONC 32.3 % (32.0-36.0); MEAN PLATELET VOLUME 8.1 FL (7.0-11.0); MONO % 5.3 % (0.0-8.0); MONOCYTE # 0.5 TH/MM3 (0-0.9); NEUT % 73.6 % (16.0-70.0); PLATELET COUNT 248 TH/MM3 (150-450); RED BLOOD COUNT 5.41 MIL/MM3 (4.50-5.90); RED CELL DISTRIBUTION WIDTH 13.8 % (11.6-17.2)
--- NOTE | 2018-04-16 10:56 | PD ---
HPI Chief Complaint: Respiratory Distress Time Seen by Provider: 10:29 Travel History International Travel<30 days: No Contact w/Intl Traveler<30days: No Traveled to known affect area: No History of Present Illness HPI This is a 78-year-old male who presents to the emergency department with 3 days of increasing shortness of breath, constant, severe, worse with exertion, improved with rest associated with a nonproductive cough. He says the shortness of breath worsens when he lays flat. He has a history of COPD but is not on oxygen at home. He does have a history of pulmonary embolism and is on Eliquis which he has been taking. He denies any fevers or chills and denies any chest pain. PFSH Past Medical History Arthritis: Yes Asthma: Yes Depression: Yes Heart Rhythm Problems: No Cancer: Yes (bladder) Cardiovascular Problems: Yes High Cholesterol: Yes Chemotherapy: Yes Chest Pain: No Congestive Heart Failure: No COPD: Yes Cerebrovascular Accident: No Diabetes: Yes Patient Takes Glucophage: No Diminished Hearing: No Deep Vein Thrombosis: Yes Endocrine: Yes Gastrointestinal Disorders: Yes (occ constipated) GERD: Yes Genitourinary: Yes (bladder ca) Hiatal Hernia: No Hypertension: Yes Kidney Stones: Yes (small) Medical other: Yes (BPH) Musculoskeletal: Yes Neurologic: Yes Psychiatric: Yes Reproductive: No Respiratory: Yes Renal Failure: No Sleep Apnea: No Ulcer: No Tetanus Vaccination: Unknown Influenza Vaccination: No Past Surgical History Abdominal Surgery: No Cardiac Surgery: No Ear Surgery: No Endocrine Surgery: No Eye Surgery: No Genitourinary Surgery: Yes (BLADDER CA REMOVAL 3 TIMES) Neurologic Surgery: No Oral Surgery: Yes (ALL TEETH REMOVED) Pacemaker: No Thoracic Surgery: No Other Surgery: Yes Social History Alcohol Use: No Tobacco Use: No Substance Use: No Allergies-Medications (Allergen,Severity, Reaction): Coded Allergies: No Known Allergies (Verified Allergy, Unknown, 04/16/18) Reported Meds & Prescriptions Reported Meds & Active Scripts Active Aspirin EC (Aspirin) 81 Mg Tabdr 81 Mg PO DAILY Flomax (Tamsulosin HCl) 0.4 Mg Cap 0.4 Mg PO HS Glimepiride 1 Mg Tab 1 Mg PO DAILY Take with breakfast or first main meal Carvedilol 3.125 Mg Tab 3.125 Mg PO BID Atorvastatin (Atorvastatin Calcium) 40 Mg Tab 40 Mg PO HS Walker with Front Wheels (Device) 1 Mis Mis Ea .XX DIRECTED Reported Amlodipine (Amlodipine Besylate) 10 Mg Tab 10 Mg PO DAILY Dyrenium (Triamterene) 50 Mg Cap 50 Mg PO DAILY Combivent Respimat Inh (Ipratropium-Albuterol Inh) 20-100 Prison/Act Aero 1 Puff INH QID Niacin 500 Mg Tab 500 Mg PO DAILY Eliquis (Apixaban) 2.5 Mg Tab 2.5 Mg PO BID Omeprazole 40 Mg Cap 40 Mg PO DAILY Gabapentin 300 Mg Cap 300 Mg PO TID Review of Systems Except as stated in HPI: all other systems reviewed are Neg Physical Exam Narrative GENERAL:Well appearing, no acute distress SKIN: Focused skin assessment warm and dry. HEAD: Atraumatic. Normocephalic. EYES: Pupils equal and round. No injection or drainage. ENT: Moist mucous membranes NECK: Trachea midline. CARDIOVASCULAR: Regular rate and rhythm. No murmur appreciated. RESPIRATORY: Moderate diffuse wheezing with no increased work of breathing GASTROINTESTINAL: Abdomen soft, non-tender, nondistended. MUSCULOSKELETAL: Swelling in the left lower extremity greater than right NEUROLOGICAL: Awake and alert. No obvious cranial nerve deficits. Moving all extremities. PSYCHIATRIC: Appropriate mood and affect; insight and judgment normal. Data Data Last Documented VS Vital Signs Date Time Temp Pulse Resp B/P (MAP) Pulse Ox O2 Delivery O2 Flow Rate FiO2 04/16/18 12:05 83 22 153/92 (112) 95 Non-Rebreather 15.00 04/16/18 11:16 98.7 Orders Orders Complete Blood Count With Diff (04/16/18 10:36) Comprehensive Metabolic Panel (04/16/18 10:36) B-Type Natriuretic Peptide (04/16/18 10:36) Act Partial Throm Time (Ptt) (04/16/18 10:36) Prothrombin Time / Inr (Pt) (04/16/18 10:36) Troponin I (04/16/18 10:36) Iv Access Insert/Monitor (04/16/18 10:36) Electrocardiogram (04/16/18 10:36) Ecg Monitoring (04/16/18 10:36) Oximetry (04/16/18 10:36) Oxygen Administration (04/16/18 10:36) Chest, Single Ap (04/16/18 10:36) Sodium Chloride 0.9% Flush (Ns Flush) (04/16/18 10:45) Methylprednisolone So Succ Inj (Solumedr (04/16/18 10:45) Albuterol-Ipratropium Neb (Duoneb Neb) (04/16/18 10:45) Admit Order (Ed Use Only) (04/16/18 12:08) Labs Laboratory Tests Test 04/16/18 10:35 White Blood Count 10.0 TH/MM3 Red Blood Count 5.41 MIL/MM3 Hemoglobin 15.6 GM/DL Hematocrit 48.4 % Mean Corpuscular Volume 89.4 FL Mean Corpuscular Hemoglobin 28.8 PG Mean Corpuscular Hemoglobin Concent 32.3 % Red Cell Distribution Width 13.8 % Platelet Count 248 TH/MM3 Mean Platelet Volume 8.1 FL Neutrophils (%) (Auto) 73.6 % Lymphocytes (%) (Auto) 15.8 % Monocytes (%) (Auto) 5.3 % Eosinophils (%) (Auto) 0.9 % Basophils (%) (Auto) 4.4 % Neutrophils # (Auto) 7.4 TH/MM3 Lymphocytes # (Auto) 1.6 TH/MM3 Monocytes # (Auto) 0.5 TH/MM3 Eosinophils # (Auto) 0.1 TH/MM3 Basophils # (Auto) 0.4 TH/MM3 CBC Comment DIFF FINAL Differential Comment Prothrombin Time 11.3 SEC Prothromb Time International Ratio 1.1 RATIO Activated Partial Thromboplast Time 33.4 SEC Blood Urea Nitrogen 26 MG/DL Creatinine 1.80 MG/DL Random Glucose 205 MG/DL Total Protein 7.7 GM/DL Albumin 3.5 GM/DL Calcium Level 9.1 MG/DL Alkaline Phosphatase 98 U/L Aspartate Amino Transf (AST/SGOT) 8 U/L Alanine Aminotransferase (ALT/SGPT) 18 U/L Total Bilirubin 0.9 MG/DL Sodium Level 141 MEQ/L Potassium Level 4.1 MEQ/L Chloride Level 108 MEQ/L Carbon Dioxide Level 23.6 MEQ/L Anion Gap 9 MEQ/L Estimat Glomerular Filtration Rate 37 ML/MIN Troponin I LESS THAN 0.02 NG/ML B-Type Natriuretic Peptide 225 PG/ML MDM Medical Decision Making Medical Screen Exam Complete: Yes Emergency Medical Condition: Yes Interpretation(s) Afebrile, no tachycardia, hypertension No leukocytosis Renal insufficiency Troponin is normal BMP is 225 Last 24 hours Impressions Chest X-Ray 04/16/18 1036 Signed Impressions: CONCLUSION: Fairly diffuse interstitial disease. This could represent progression of inters titial disease. There was some interstitial disease in the right upper lung on the prior exam versus acute interstitial processes such as edema.. Differential Diagnosis Pulmonary embolism, COPD exacerbation, interstitial lung disease, pneumonia Narrative Course This is a 78-year-old male who presents to the emergency department with increasing shortness of breath that has been going on for 4 days. On arrival he was hypoxic to the mid 70s on room air but appeared in no respiratory distress. He requires a nonrebreather to maintain his oxygen saturation above 90. He was placed on a monitor and an IV was established. Labs are reassuring. BNP is indeterminate. Chest x-ray demonstrates diffuse interstitial process suggestive of worsening interstitial lung disease. He has no obvious signs of congestive heart failure on exam but pulmonary edema continues on the differential. Patient was treated with methylprednisolone and serial bronchodilators. He will be admitted to the intensive care unit given his oxygen requirement for continued pulmonary management. Critical Care Narrative Aggregate critical care time was 40 minutes. Time to perform other separately billable procedures was not included in the critical care time. My time did not include minutes spent treating any other patients simultaneously or on activities that did not directly contribute to the patient's treatment. The services I provided to this patient were to treat and/or prevent clinically significant deterioration that could result in: disability, I provided critical care services requiring my management, as noted below: Chart data review, documentation time, medication orders and management, vital sign assessments/reviewing monitor data, ordering and reviewing lab tests, ordering and interpreting/reviewing x-rays and diagnostic studies, care of the patient and discussion of the patient with the admitting physicians. Physician Communication Physician Communication Discussed with Dr. Garay Diagnosis Primary Impression: Acute respiratory failure with hypoxia Admitting Information Admitting Physician Requests: Admit Summer Worthy MD Apr 16, 2018 10:56
[2018-04-16 11:00] LABS: CHLORIDE 108 MEQ/L (98-107); SODIUM (NA) 141 MEQ/L (136-145)
[2018-04-16 11:03] LABS: CALCIUM 9.1 MG/DL (8.5-10.1)
[2018-04-16 11:04] LABS: ALBUMIN 3.5 GM/DL (3.4-5.0); BICARBONATE 23.6 MEQ/L (21.0-32.0); BLOOD UREA NITROGEN 26 MG/DL (7-18); GLUCOSE,RANDOM 205 MG/DL (74-106)
[2018-04-16 11:07] LABS: ALT (GPT) 18 U/L (12-78); AST (GOT) 8 U/L (15-37); GLOMERULAR FILTRATION RATE 37 ML/MIN (>89)
[2018-04-16 11:09] LABS: TOTAL BILIRUBIN ADULT 0.9 MG/DL (0.2-1.0); TOTAL PROTEIN 7.7 GM/DL (6.4-8.2)
[2018-04-16 11:10] LABS: ALKALINE PHOSPHATASE 98 U/L (45-117)
[2018-04-16 11:12] LABS: TROPONIN I LESS THAN 0.02 NG/ML (0.02-0.05)
[2018-04-16 11:13] LABS: INTERNATIONAL NORMALIZED RATIO 1.1 RATIO; PROTHROMBIN TIME - PATIENT 11.3 SEC (9.8-11.6)
--- NOTE | 2018-04-16 11:34 | RADRPT ---
EXAM DATE: 04/16/2018 11:19 AM EDT AGE/SEX: 78 years / Male INDICATIONS: Severe shortness of breath starting 3 days ago becoming worse today. CLINICAL DATA: This is the patient's initial encounter. Patient reports that signs and symptoms have been present for 3 days and indicates a pain score of 0/10. MEDICAL/SURGICAL HISTORY: Carcinoma, bladder. Chronic obstructive pulmonary disease. Gastroes ophageal reflux disease. Asthma. Hypertension. DVT. Renal calculi. Diabetes. . Bladder surgery for cancer. COMPARISON: [facility] – [place], [place]ST SINGLE AP, 08/22/2011. . FINDINGS: The heart size is normal. There is increased interstitial markings seen throughout the lungs with rel ative sparing of the mid to upper left lung. There is blunting of the right cusp annual suggesting a mild right pleural effusion. Left costophrenic angle is clear. CONCLUSION: Fairly diffuse interstitial disease. This could represent progression of interstitial disease. There was some interstitial disease in the right upper lung on the prior exam versus acute interstitial pro cesses such as edema.. Electronically signed by: Rohit Loomis MD 04/16/2018 11:33 AM EDT
[2018-04-16] MEDS ORDERED: LACTULOSE SYRUP 20 GM/30 ML CUP PO PRN (12:15)
[2018-04-16] MEDS ORDERED: SODIUM CHLORIDE 0.9% FLUSH 10 ML FLUSH IV FLUSH PRN (12:15)
[2018-04-16] MEDS ORDERED: NALOXONE HCL 0.4 MG/ML AMP IV PUSH PRN (12:15)
[2018-04-16] MEDS ORDERED: ACETAMINOPHEN 325 MG TAB PO PRN (12:15)
[2018-04-16] MEDS ORDERED: SENNOSIDES 8.6 MG TAB PO PRN (12:15)
[2018-04-16] MEDS ORDERED: MAGNESIUM HYDROXIDE SUSP 30 ML CUP PO PRN (12:15)
[2018-04-16] MEDS ORDERED: BISACODYL 10 MG SUPP RECTAL PRN (12:15)
--- NOTE | 2018-04-16 15:13 | HHI.HP ---
[facility] Stephon Linder MD Admission Diagnosis hypoxic respiratory failure Diagnoses: (1) Acute respiratory failure with hypoxia Diagnosis: Principal Chief Complaint: Shortness of breath Travel History International Travel<30 Days: No Contact w/Intl Traveler <30 Da: No Traveled to Known Affected Are: No History of Present Illness 78-year-old male with known history of hypertension, hyperlipidemia, pulmonary emboli, DVT, diabetes, bladder cancer who presented to the emergency department because of acute with progressive onset of fatigue, shortness of breath. Patient was in his normal state of health until yesterday after he did physical therapy at [facility]. After that he came home and started developing fatigue. He went to bed last evening and he woke up a middle and night in order to go to the restroom. At that time he started developing some tingling in his fingers, worsening fatigue. When the patient woke up this morning he has significant fatigue, shortness of breath, difficulty breathing. He told his that he did not feel right he had no energy to get out of bed and he could not breathe. Patient came to the emergency department for evaluation. Patient was found to have hypoxic respiratory failure and placed on partial nonrebreather at 15 L. Patient had chest x-ray performed which did show fairly diffuse interstitial disease which could represent progression of interstitial disease or acute interstitial process such as edema. Patient was given Solu-Medrol and updraft treatment in the emergency department without any significant change in clinical status. Patient was admitted to the ICU for continued management care. Review of Systems Constitutional: COMPLAINS OF: Fatigue Respiratory: COMPLAINS OF: Shortness of breath Except as stated in HPI: all other systems reviewed are Neg Past Family Social History Past Medical History Hypertension Hyperlipidemia History of pulmonary emboli History of left lower extremity DVT History of TIA Diabetes Chronic obstructive pulmonary disease History of bladder cancer History of right renal cell carcinoma Benign prostatic hypertrophy Past Surgical History Cystoscopies Reported Medications Reported Meds & Active Scripts Active Aspirin EC (Aspirin) 81 Mg Tabdr 81 Mg PO DAILY Flomax (Tamsulosin HCl) 0.4 Mg Cap 0.4 Mg PO HS Glimepiride 1 Mg Tab 1 Mg PO DAILY Take with breakfast or first main meal Carvedilol 3.125 Mg Tab 3.125 Mg PO BID Atorvastatin (Atorvastatin Calcium) 40 Mg Tab 40 Mg PO HS Walker with Front Wheels (Device) 1 Mis Mis Ea .XX DIRECTED Reported Amlodipine (Amlodipine Besylate) 10 Mg Tab 10 Mg PO DAILY Dyrenium (Triamterene) 50 Mg Cap 50 Mg PO DAILY Combivent Respimat Inh (Ipratropium-Albuterol Inh) 20-100 Group Home/Act Aero 1 Puff INH QID Niacin 500 Mg Tab 500 Mg PO DAILY Eliquis (Apixaban) 2.5 Mg Tab 2.5 Mg PO BID Omeprazole 40 Mg Cap 40 Mg PO DAILY Gabapentin 300 Mg Cap 300 Mg PO TID Allergies: Coded Allergies: No Known Allergies (Verified Allergy, Unknown, 04/16/18) Family History Family history reviewed and indicated mother from pulmonary edema, father from brain tumor Social History Patient states that he quit smoking 25-30 years ago, prior to that he smoked half pack of cigarettes a day since he was 12 years old.. Patient denies any alcohol or illicit drug Physical Exam Vital Signs Vital Signs Date Time Temp Pulse Resp B/P (MAP) Pulse Ox O2 Delivery O2 Flow Rate FiO2 04/16/18 14:28 91 Partial Rebreather 15.00 04/16/18 13:12 04/16/18 13:10 80 22 170/89 (116) 95 Non-Rebreather 15.00 04/16/18 12:05 83 22 153/92 (112) 95 Non-Rebreather 15.00 04/16/18 11:16 98.7 81 22 149/69 (95) 98 Partial Rebreather 15.00 04/16/18 11:14 22 95 Partial Rebreather 15.00 04/16/18 11:05 95 Partial Rebreather 15.00 04/16/18 10:42 88 04/16/18 10:42 88 Nasal Cannula 4.00 04/16/18 10:36 92 28 81 04/16/18 10:34 98.4 92 28 165/88 (113) 81 Physical Exam GENERAL: Well-developed, well-nourished, in no acute distress. alert and orientated HEENT: Head is normocephalic without any lesions or masses noted. Facial features are symmetric. Eyes: Pupils equal round reactive to light. Extraocular muscles are intact. Conjunctivae were clear. Oropharyngeal: Pharynx without any erythema edema. Tongue is midline without deviation. Buccal mucosa is moist without any masses or lesions NECK: Supple without any masses. Trachea midline no deviation. No JVD, no bruits are appreciated CARDIAC: Regular rhythm, regular rate. S1/S2 are heard. No murmurs gallops or rubs. LUNGS: Diminished breath sounds noted throughout. No wheeze, rhonchi or rales. No use of accessory muscles on inspiration or expiration. ABDOMEN: Soft, nontender. Nondistended. Bowel sounds heard in all 4 quadrants. No organomegaly or masses. Negative rebound, negative guarding EXTREMITIES: No edema, pulses are equal bilaterally. No cyanosis or clubbing NEUROLOGY: Mood and affect appear appropriate. Cranial nerves II through XII grossly intact. Muscle strength 5/5 in upper and lower extremities bilaterally. Deep tendon reflexes are 2+ in upper and lower extremities bilaterally. Laboratory Laboratory Tests Test 04/16/18 10:35 04/16/18 14:05 04/16/18 14:07 White Blood Count 10.0 Red Blood Count 5.41 Hemoglobin 15.6 Hematocrit 48.4 Mean Corpuscular Volume 89.4 Mean Corpuscular Hemoglobin 28.8 Mean Corpuscular Hemoglobin Concent 32.3 Red Cell Distribution Width 13.8 Platelet Count 248 Mean Platelet Volume 8.1 Neutrophils (%) (Auto) 73.6 Lymphocytes (%) (Auto) 15.8 Monocytes (%) (Auto) 5.3 Eosinophils (%) (Auto) 0.9 Basophils (%) (Auto) 4.4 Neutrophils # (Auto) 7.4 Lymphocytes # (Auto) 1.6 Monocytes # (Auto) 0.5 Eosinophils # (Auto) 0.1 Basophils # (Auto) 0.4 CBC Comment DIFF FINAL Differential Comment Prothrombin Time 11.3 Prothromb Time International Ratio 1.1 Activated Partial Thromboplast Time 33.4 Blood Urea Nitrogen 26 Creatinine 1.80 Random Glucose 205 Total Protein 7.7 Albumin 3.5 Calcium Level 9.1 Alkaline Phosphatase 98 Aspartate Amino Transf (AST/SGOT) 8 Alanine Aminotransferase (ALT/SGPT) 18 Total Bilirubin 0.9 Sodium Level 141 Potassium Level 4.1 Chloride Level 108 Carbon Dioxide Level 23.6 Anion Gap 9 Estimat Glomerular Filtration Rate 37 Troponin I LESS THAN 0.02 B-Type Natriuretic Peptide 225 Blood Gas Puncture Site RT RADIAL Blood Gas Patient Temperature 98.6 Blood Gas HCO3 23 Blood Gas Base Excess -1.1 Blood Gas Oxygen Saturation 91 Arterial Blood pH 7.44 Arterial Blood Partial Pressure CO2 34 Arterial Blood Partial Pressure O2 67 Arterial Blood Oxygen Content 19.5 Arterial Blood Carboxyhemoglobin 2.1 Arterial Blood Methemoglobin 1.0 Blood Gas Hemoglobin 15.3 Oxygen Delivery Device Partial Rebreather Blood Gas Liter Flow 15 Result Diagram: 04/16/18 1035 04/16/18 1035 Imaging Last Impressions Chest X-Ray 04/16/18 1036 Signed Impressions: CONCLUSION: Fairly diffuse interstitial disease. This could represent progression of inters titial disease. There was some interstitial disease in the right upper lung on the prior exam versus acute interstitial processes such as edema.. Caprini VTE Risk Assessment Caprini VTE Risk Assessment: Mod/High Risk (score >= 2) Caprini Risk Assessment Model Point Value = 1 Point Value = 2 Point Value = 3 Point Value = 5 Age 41-60 Minor surgery BMI > 25 kg/m2 Swollen legs Varicose veins or History of unexplained or recurrent spontaneous Oral contraceptives or hormone replacement Sepsis (< 1 month) Serious lung disease, including pneumonia (< 1 month) Abnormal pulmonary function Acute myocardial infarction Congestive heart failure (< 1 month) History of inflammatory bowel disease Medical patient at bed rest Age 61-74 Arthroscopic surgery Major open surgery (> 45 min) Laparoscopic surgery (> 45 min) Malignancy Confined to bed (> 72 hours) Immobilizing plaster cast Central venous access Age >= 75 History of VTE Family history of VTE Factor V Leiden Prothrombin [id number] Lupus anticoagulant Anticardiolipin antibodies Elevated serum homocysteine Heparin-induced thrombocytopenia Other congenital or acquired thrombophilia Stroke (< 1 month) Elective arthroplasty Hip, pelvis, or leg fracture Acute spinal cord injury (< 1 month) Prophylaxis Regimen Total Risk Factor Score Risk Level Prophylaxis Regimen 0-1 Low Early ambulation 2 Moderate Order ONE of the following: *Sequential Compression Device (SCD) *Heparin 5000 units SQ BID 3-4 Higher Order ONE of the following medications: *Heparin 5000 units SQ TID *Enoxaparin/Lovenox 40 mg SQ daily (WT < 150 kg, CrCl > 30 mL/min) *Enoxaparin/Lovenox 30 mg SQ daily (WT < 150 kg, CrCl > 10-29 mL/min) *Enoxaparin/Lovenox 30 mg SQ BID (WT < 150 kg, CrCl > 30 mL/min) AND/OR *Sequential Compression Device (SCD) 5 or more Highest Order ONE of the following medications: *Heparin 5000 units SQ TID (Preferred with Epidurals) *Enoxaparin/Lovenox 40 mg SQ daily (WT < 150 kg, CrCl > 30 mL/min) *Enoxaparin/Lovenox 30 mg SQ daily (WT < 150 kg, CrCl > 10-29 mL/min) *Enoxaparin/Lovenox 30 mg SQ BID (WT < 150 kg, CrCl > 30 mL/min) AND *Sequential Compression Device (SCD) Assessment and Plan Assessment and Plan Acute hypoxic respiratory failure -Unknown etiology at this time. Possible etiologies could include acute embolic event, chronic objective pulmonary disease exacerbation, acute congestive heart failure, flash pulmonary edema -Patient does have chest x-ray findings of diffuse interstitial disease which could represent edema -Patient with mildly elevated BNP -Obtain d-dimer which was mildly elevated, will need to perform pulmonary angiogram -Obtained a blood gas which does show respiratory compensating metabolic acidosis -Continue O2 supplementation maintain O2 sats greater than 92% -BiPAP as needed to maintain O2 sats greater than 92%, if heart rate greater than 30 -We will consider continuation of Solu-Medrol, or addition of Lasix once further testing has been performed and an etiology could be narrowed down -Duo nebs every 6 hours while awake and every 2 hours as needed -Obtain pro-calcitonin level -Continue to trend cardiac enzymes, EKGs -Obtain echocardiogram Chronic kidney disease stage III -After review of medical records it appears that this could be his baseline renal function -Continue monitor renal function -Avoid nephrotoxins Diabetes -Diabetic diet -Accu-Cheks with sliding scale insulin Hypertension, hyperlipidemia, history of TIA -Continue amlodipine, Coreg, triamterene -Add lisinopril 5 mg daily -continue atorvastatin -Continue Eliquis DVT prevention -Patient is on Eliquis Code Status Full code Physician Certification 2 Midnight Certification Type: Admission for Inpatient Services Order for Inpatient Services The services are ordered in accordance with Medicare regulations or non- Medicare payer requirements, as applicable. In the case of services not specified as inpatient-only, they are appropriately provided as inpatient services in accordance with the 2-midnight benchmark. Estimated LOS (days): 3 days is the estimated time the patient will need to remain in the hospital, assuming treatment plan goals are met and no additional complications. Post-Hospital Plan: Not yet determined Avila Bethea Apr 16, 2018 15:13
[2018-04-16] MEDS ORDERED: GLUCAGON 1 MG/ML VIAL OTHER PRN (15:15)
[2018-04-16] MEDS ORDERED: DEXTROSE 50% IN WATER 50 ML VIAL(D50) IV PUSH PRN (15:15)
[2018-04-16] MEDS ORDERED: RESP: ALBUTEROL 2.5 MG/IPRATROPIUM 0.5 MG NEB (PRN) NEB (15:15)
[2018-04-16] MEDS: LISINOPRIL 5 MG TAB PO SCH (15:56)
[2018-04-16] MEDS ORDERED: IODIXANOL 320 MG/ML 10 ML VIAL (for Rad CT) IVCONTRAST ONE (16:20)
--- NOTE | 2018-04-16 16:33 | RADRPT ---
EXAM DATE: 04/16/2018 4:19 PM EDT AGE/SEX: 78 years / Male INDICATIONS: Respiratory failure. Elevated D-dimer. Evaluate for pulmonary embolism. CLINICAL DATA: This is the patient's initial encounter. Patient reports that signs and symptoms have been present for 3 days and indicates a pain score of 4/10. MEDICAL/SURGICAL HISTORY: Deep venous thrombosis. Chronic obstructive pulmonary disease. Gastroes ophageal reflux disease. Cerebrovascular disease. Hypertension. Bladder cancer. Asthma. Diabetes. N one. RADIATION DOSE: 11.69 CTDI (mGy) COMPARISON: [facility] – [place]/O [place], 12/12/2017. . TECHNIQUE: Volumetric scanning was performed using a multi-row detector CT scanner during bolus infu devi of 50 ml Visipaque 320 (iodixanol) nonionic water-soluble contrast as a single exam dose. The d tereso was post processed with a variety of visualization algorithms including full volume maximum inten sity projection and sliding thin slab reformation. Using automated exposure control and adjustment of the mA and/or kV according to patient size, radiation dose was kept as low as reasonably achievable to obtain optimal diagnostic quality images. DICOM format image data is available electronically for review and comparison. FINDINGS: Pulmonary Arteries: No pulmonary embolus is seen. Lung: There is diffuse emphysematous change in the upper lungs. There is diffuse interstitial diseas e throughout the lungs. There is some more focal consolidation or atelectasis in the superior lateral right upper lung. Effusion: There are mild bilateral pleural effusions being worse on the right. Mediastinum: There is adenopathy seen throughout the mediastinum with lymph nodes measuring up to 1. 9 cm. These lymph nodes are seen in the right paratracheal, precarinal, subcarinal, and prevascular r egions. Other: The axilla is unremarkable. There is a mild hiatal hernia. CONCLUSION: 1. No pulmonary embolus. 2. Prominent emphysematous change. 3. Interstitial disease. This appears worse when compared to the prior CT examination suggesting wor sening interstitial disease versus superimposed edema. 4. Adenopathy in the mediastinum. This is clearly new when compared to the prior exam. 5. Mild bilateral pleural effusions which are new. Electronically signed by: Rohit Loomis MD 04/16/2018 4:32 PM EDT
[2018-04-16] MEDS ORDERED: AZITHROMYCIN INJ 500 MG in SODIUM CHLOR 0.9% 250 ML INJ 250 ML IV SCH (17:00)
[2018-04-16] MEDS ORDERED: FUROSEMIDE 40 MG/4 ML VIAL IV PUSH ONE (17:00)
[2018-04-16] MEDS: cefTRIAXone INJ 1,000 MG in SODIUM CHLORIDE 0.9% INJ 100 ML IV SCH (17:27)
[2018-04-16 17:37] LABS: TROPONIN I LESS THAN 0.02 NG/ML (0.02-0.05)
[2018-04-16] MEDS: INSULIN ASPART SUPPLEMENTAL SCALE SQ SCH ×2 (17:41→21:25)
[2018-04-16] MEDS: GABAPENTIN 300 MG CAP PO SCH (17:42)
[2018-04-16] MEDS ORDERED: methylPREDNISolone SOD SUCC 40 MG/1 ML VIAL IV PUSH SCH (18:00)
--- NOTE | 2018-04-16 18:14 | MB ---
cc: Ron Matthews MD DATE: 04/16/2018 REASON FOR CONSULTATION: Respiratory failure. HISTORY OF PRESENT ILLNESS: This is a 78-year-old white male with a history of hypertension, history of hyperlipidemia and diabetes mellitus, as well as prior history of pulmonary emboli with DVT. Has had a past history for bladder cancer and was admitted with progressive shortness of breath over the past 24 hours. The patient was fatigued after physical therapy and apparently had some orthopnea and difficulty breathing and thus came in to the emergency room and was admitted. He was placed on a nonrebreather mask and his chest CT that was done showed evidence of interstitial lung disease. He was then started on IV antibiotics and Solu-Medrol 60 mg, as well as nebulized albuterol and Atrovent solution. He is now in the intensive care unit and breathing a little easier. He denies chest pains, denies hemoptysis, but he does have a cough and wheezing. PAST MEDICAL HISTORY: Includes history of pulmonary embolism, history of DVT, history of hypertension and hyperlipidemia, prior history of TIAs, history of bladder cancer and renal cell carcinoma of the right and prostatic hypertrophy, as well as COPD with emphysema. ALLERGIES: NO KNOWN DRUG ALLERGIES. MEDICATIONS: List included amlodipine 10 mg daily, triamterene 50 mg a day, Combivent, Respimat 1 puff q.i.d. and Eliquis 2.5 mg b.i.d., omeprazole 40 mg a day, gabapentin 300 mg t.i.d. ALLERGIES: NONE LISTED. FAMILY HISTORY: Significant for COPD in his mother. Father had brain tumor. HABITS: The patient smoked 1/2 to 1 pack per day for over 30 years and then quit. No significant alcohol use. REVIEW OF SYSTEMS: The patient has had weight loss. He has leg swelling. He has some epigastric distress and nausea. Denies headaches or blackouts. No skin lesions. Denies any joint pains, but has some lower back pain and anxiety. PHYSICAL EXAMINATION: GENERAL: This averagely built, elderly man is pale and mildly dyspneic. VITAL SIGNS: Blood pressure 140/70, pulse is 82, respirations 20, temperature 98.5. HEENT: Head is normocephalic. Pupils reactive. Tongue is moist. Throat is injected. Nasal mucosa edematous. NECK: Supple, no bruits or thyroid enlargement. LUNGS: Distant breath sounds with expiratory wheezes bilaterally and crackles at the lung bases. HEART: The heart sounds, regular S1, S2. No murmur. ABDOMEN: Soft, protuberant, without masses. No organomegaly or tenderness. EXTREMITIES: Edema 1+ on the left leg and no calf tenderness. Reflexes are 1+, with no gross motor deficits. Cranial nerves are grossly intact. SKIN: No lesions noted. IMPRESSION: 1. Acute hypoxemic respiratory failure. 2. Pulmonary edema with pleural effusions. 3. Interstitial lung disease. 4. Chronic obstructive pulmonary disease with chronic bronchitis, with acute exacerbation. 5. Diabetes mellitus type 2. 6. History of bladder cancer. 7. History of pulmonary embolism. 8. Hypertension. PLAN: The patient will be maintained on O2 at 50% FiO2 with a Ventimask. He will be placed on a BiPAP mask at night 12/5 and 35%. We will give him a dose of Lasix tonight, 40 mg IV. Nebulized DuoNeb solution added q.i.d. and Solu-Medrol tapered to 40 mg every 8 hours. Continue the Rocephin 1 gram IV daily and continue with the anticoagulants including apixaban 2.5 mg b.i.d. Followup chest x-ray in a.m. and will follow the case with you. Thank you for this consultation. MD MECHE Alba/NAM , 05:39 PM , 06:12 PM
--- NOTE | 2018-04-16 18:45 | EKG ---
Date Performed: 04/16/2018 Time Performed: 10:35:16 PTAGE: 78 years EKG: Sinus rhythm NORMAL ECG Since the PREVIOUS TRACING , no significant change noted PREVIOUS TRACIN02/05/2018 00.17 DOCTOR: Krista Torres Interpretating Date/Time 04/16/2018 18:43:22
[2018-04-16] MEDS: RESP: ALBUTEROL 2.5 MG/IPRATROPIUM 0.5 MG NEB (SCH) NEB (19:57)
[2018-04-16] MEDS ORDERED: CHLORHEXIDINE GLUCONATE 2 % 1 PACK (2 CLOTHS)(extra cloths) TOPICAL PRN (20:00)
[2018-04-16] MEDS: APIXABAN 2.5 MG TABLET PO SCH (21:21)
[2018-04-16] MEDS: CARVEDILOL 3.125 MG TAB PO SCH (21:21)
[2018-04-16] MEDS: ATORVASTATIN 40 MG TAB PO SCH (21:21)
[2018-04-16] MEDS: SODIUM CHLORIDE 0.9% FLUSH 10 ML FLUSH IV FLUSH SCH (21:21)
[2018-04-16] MEDS: methylPREDNISolone SOD SUCC 40 MG/1 ML VIAL IV PUSH SCH (21:22)
[2018-04-16] MEDS: BUDESONIDE-FORMOTEROL 160/4.5 MCG INHALER INH SCH (21:22)
[2018-04-16] MEDS: TAMSULOSIN HCL 0.4 MG CAP PO SCH (21:26)
[2018-04-17] VITALS (39 sets, daily range): BP systolic 105–138; BP diastolic 54–73; PULSE 64–86; RESP 9–28; TEMP 97.4–97.9; O2SAT 89–96
[2018-04-17] MEDS: CHLORHEXIDINE GLUCONATE 2 % 1 PACK (2 CLOTHS)(taper/protocol) TOPICAL SCH (04:00)
[2018-04-17 04:49] LABS: BASOPHIL # 0.1 TH/MM3 (0-0.2); BASOPHIL % 0.7 % (0.0-2.0); HEMATOCRIT 46.4 % (39.0-51.0); LYMPH % 7.2 % (9.0-44.0); LYMPHOCYTE # 0.8 TH/MM3 (1.0-4.8); MEAN CELL VOLUME 88.3 FL (80.0-100.0); MEAN CORPUSCULAR HEMOGLOBIN 28.6 PG (27.0-34.0); MEAN CORPUSCULAR HGB CONC 32.4 % (32.0-36.0); MEAN PLATELET VOLUME 8.2 FL (7.0-11.0); MONO % 1.1 % (0.0-8.0); MONOCYTE # 0.1 TH/MM3 (0-0.9); PLATELET COUNT 232 TH/MM3 (150-450); RED BLOOD COUNT 5.25 MIL/MM3 (4.50-5.90); RED CELL DISTRIBUTION WIDTH 13.7 % (11.6-17.2)
[2018-04-17 05:02] LABS: CALCIUM 9.1 MG/DL (8.5-10.1)
[2018-04-17 05:03] LABS: BICARBONATE 22.5 MEQ/L (21.0-32.0); MAGNESIUM 2.1 MG/DL (1.5-2.5)
[2018-04-17] MEDS: methylPREDNISolone SOD SUCC 40 MG/1 ML VIAL IV PUSH SCH ×3 (05:40→20:47)
[2018-04-17] MEDS: RESP: ALBUTEROL 2.5 MG/IPRATROPIUM 0.5 MG NEB (SCH) NEB ×3 (07:23→20:01)
[2018-04-17] MEDS: APIXABAN 2.5 MG TABLET PO SCH ×2 (08:11→20:49)
[2018-04-17] MEDS: CARVEDILOL 3.125 MG TAB PO SCH ×2 (08:11→20:48)
[2018-04-17] MEDS: GABAPENTIN 300 MG CAP PO SCH ×3 (08:11→18:21)
[2018-04-17] MEDS: INSULIN ASPART SUPPLEMENTAL SCALE SQ SCH ×4 (08:11→20:48)
[2018-04-17] MEDS: ASPIRIN EC 81 MG TABEC PO SCH (08:11)
[2018-04-17] MEDS: LISINOPRIL 5 MG TAB PO SCH (08:12)
[2018-04-17] MEDS: PANTOPRAZOLE SOD 40 MG DELAYED RELEASE TAB PO SCH (08:12)
[2018-04-17] MEDS ORDERED: FUROSEMIDE 40 MG/4 ML VIAL IV PUSH ONE (08:15)
[2018-04-17] MEDS: SODIUM CHLORIDE 0.9% FLUSH 10 ML FLUSH IV FLUSH SCH ×2 (08:47→20:18)
[2018-04-17] MEDS: BUDESONIDE-FORMOTEROL 160/4.5 MCG INHALER INH SCH ×2 (08:48→21:02)
[2018-04-17] MEDS ORDERED: TRIAMTERENE 50 MG PO SCH (09:00)
--- NOTE | 2018-04-17 09:12 | EKG ---
Date Performed: 04/16/2018 Time Performed: 16:41:05 PTAGE: 78 years EKG: Sinus rhythm Normal ECG PREVIOUS TRACING : 04/16/2018 10.35 Since the previous tracing, no significant change noted DOCTOR: Tony Thompson Interpretating Date/Time 04/17/2018 09:12:30
--- NOTE | 2018-04-17 09:12 | HHI.PR ---
Subjective Remarks Patient seen and examined today in follow-up for acute hypoxic respiratory failure. Patient states that his breathing appears to be improving. Patient did tolerate BiPAP overnight, he is now on Ventimask. When patient instructed to take deep breaths his oxygenation improved significantly up to 95%. Vital signs are stable, patient remains afebrile. Objective Vitals Vital Signs Date Time Temp Pulse Resp B/P (MAP) Pulse Ox O2 Delivery O2 Flow Rate FiO2 04/17/18 08:00 78 04/17/18 08:00 82 14 91 04/17/18 07:58 84 17 128/65 (86) 91 04/17/18 07:20 91 Venturi Mask 6.00 50 04/17/18 07:15 97.9 04/17/18 07:00 Venturi Mask 40.00 40 04/17/18 07:00 74 15 95 04/17/18 06:00 68 04/17/18 06:00 67 04/17/18 05:58 68 13 128/66 (86) 94 04/17/18 04:02 92 40 04/17/18 04:00 74 04/17/18 04:00 97.6 74 10 138/73 (94) 96 04/17/18 03:58 74 11 138/73 (94) 94 04/17/18 02:58 68 15 117/62 (80) 94 04/17/18 01:58 68 15 120/65 (83) 94 04/17/18 00:58 70 14 106/60 (75) 96 04/17/18 00:40 96 40.00 04/17/18 00:00 69 04/16/18 23:58 97.5 70 15 107/59 (75) 94 04/16/18 23:09 97 40 04/16/18 22:58 66 15 110/60 (77) 93 04/16/18 22:00 104 04/16/18 21:58 70 19 111/65 (80) 94 04/16/18 21:58 70 19 111/65 (80) 94 04/16/18 21:15 94 Bi-Pap 35 04/16/18 21:10 95 50 04/16/18 20:58 98.1 70 23 110/61 (77) 93 04/16/18 20:00 88 04/16/18 20:00 94 Non-Rebreather 15.00 6/21/18 19:57 93 Partial Rebreather 15.00 04/16/18 18:00 82 04/16/18 18:00 82 26 149/74 (99) 96 04/16/18 17:00 84 18 139/72 (94) 93 04/16/18 16:00 98.7 04/16/18 16:00 84 04/16/18 16:00 84 19 156/71 (99) 94 04/16/18 15:25 76 18 98/74 (82) 94 04/16/18 14:28 91 Partial Rebreather 15.00 04/16/18 14:00 76 04/16/18 13:32 97.7 76 17 128/92 (104) 93 04/16/18 13:25 84 04/16/18 13:12 04/16/18 13:10 80 22 170/89 (116) 95 Non-Rebreather 15.00 04/16/18 12:05 83 22 153/92 (112) 95 Non-Rebreather 15.00 04/16/18 11:16 98.7 81 22 149/69 (95) 98 Partial Rebreather 15.00 04/16/18 11:14 22 95 Partial Rebreather 15.00 04/16/18 11:05 95 Partial Rebreather 15.00 04/16/18 10:42 88 04/16/18 10:42 88 Nasal Cannula 4.00 04/16/18 10:36 92 28 81 04/16/18 10:34 98.4 92 28 165/88 (113) 81 I/O 04/16/18 04/16/18 04/16/18 04/17/18 04/17/18 04/17/18 06:59 14:59 22:59 06:59 14:59 22:59 Intake Total 120 ml 240 ml 120 ml 120 ml Output Total 375 ml 1000 ml Balance 120 ml -135 ml -880 ml 120 ml Intake Oral 120 ml 240 ml 120 ml 120 ml Output Urine Total 375 ml 1000 ml Stool Total 0 ml # Bowel Movements 0 Result Diagram: 04/17/18 9203 04/17/18 6677 Imaging Last Impressions Chest X-Ray 04/16/18 1036 Signed Impressions: CONCLUSION: Fairly diffuse interstitial disease. This could represent progression of inters titial disease. There was some interstitial disease in the right upper lung on the prior exam versus acute interstitial processes such as edema.. CT Angiography 04/16/18 0000 Signed Impressions: CONCLUSION: 1. No pulmonary embolus. 2. Prominent emphysematous change. 3. Interstitial disease. This appears worse when compared to the prior CT exam ination suggesting worsening interstitial disease versus superimposed edema. 4. Adenopathy in the mediastinum. This is clearly new when compared to the alo or exam. 5. Mild bilateral pleural effusions which are new. Objective Remarks GENERAL: Well-developed, well-nourished, in no acute distress. alert and orientated HEENT: Head is normocephalic without any lesions or masses noted. Facial features are symmetric. Eyes: Extraocular muscles are intact. Conjunctivae were clear. NECK: Supple without any masses. Trachea midline no deviation. No JVD, CARDIAC: Regular rhythm, regular rate. S1/S2 are heard. No murmurs gallops or rubs. LUNGS: Fine crackles noted in the bases. No rhonchi or wheeze no use of accessory muscles on inspiration or expiration. ABDOMEN: Soft, nontender. Nondistended. Bowel sounds heard in all 4 quadrants. No organomegaly or masses. Negative rebound, negative guarding EXTREMITIES: No edema, pulses are equal bilaterally. No cyanosis or clubbing NEUROLOGY: Mood and affect appear appropriate. Cranial nerves II through XII grossly intact. Moving all extremities, speech is clear Procedures ECHOCARDIOGRAM, pending Urinary Catheter: No Vascular Central Line Catheter: No A/P Assessment and Plan Acute hypoxic respiratory failure -Possible etiologies could include chronic obstructive pulmonary disease exacerbation, acute congestive heart failure -Patient does have chest x-ray findings of diffuse interstitial disease which could represent edema -Patient with mildly elevated BNP, physical findings still indicating fine crackles in the bases, CT scan also indicates possible edema -Mildly elevated d-dimer, CTA of the chest was performed which did not indicate any embolic event -Arterial blood gas was performed appears to have respiratory compensation for a metabolic acidosis -Continue O2 supplementation maintain O2 sats greater than 92% -BiPAP as needed to maintain O2 sats greater than 92%, if respiration rate greater than 30 -Solu-Medrol 40 mg IV every 8 hours -Duo nebs every 6 hours while awake and every 2 hours as needed -Pro-calcitonin level 0.04 -No evidence of any acute coronary event. Serial cardiac enzymes remain normal , serial EKG shows sinus rhythm without any changes -Await echocardiogram -Status post Lasix 40 mg IV last evening with approximately 1 L fluid output. Given the patient having continued physical findings with fine crackles, will give another Lasix 40 mg IV today -Maxillofacial Prosthodontist consulted for further recommendations Chronic kidney disease stage III -After review of medical records it appears that this could be his baseline renal function -Avoid nephrotoxins -Monitor renal function closely with the continue administration of Lasix Diabetes -Diabetic diet -Accu-Cheks with sliding scale insulin Hypertension, hyperlipidemia, history of TIA -Continue amlodipine, Coreg, triamterene -Continue lisinopril 5 mg daily -continue atorvastatin -Continue Eliquis DVT prevention -Patient is on Eliquis Discharge Planning Discharge planning in 48-72 hours depending on patient's response to treatment. Avila Bethea Apr 17, 2018 09:12
--- NOTE | 2018-04-17 09:22 | EKG ---
Date Performed: 04/16/2018 Time Performed: 22:10:01 PTAGE: 78 years EKG: Sinus rhythm NORMAL ECG Since the PREVIOUS TRACING , no significant change noted PREVIOUS TRACIN04/16/2018 16.41 DOCTOR: Tony Thompson Interpretating Date/Time 04/17/2018 09:16:52
[2018-04-17 11:14] LABS: CHOLESTEROL/ HDL RATIO 2.63 RATIO; HDL CHOLESTEROL 56.1 MG/DL (40.0-60.0)
--- NOTE | 2018-04-17 12:59 | ECHRPT ---
Indication: SHORTNESS OF BREATH CONCLUSIONS The left ventricular systolic function is hyperdynamic with an estimated ejection fraction in the ra nge of 65- 70%. Normal left ventricular size. Wall thickness is normal. No regional wall motion abnormalities are present. Mild thickening of the aortic valve leaflets, aortic valve sclerosis. Calcification of the right coronary cusp. Calcification of the non-coronary cusp. Trace aortic valve regurgitation. Trivial pulmonary valve regurgitation. BP: / HR: Rhythm: MEASUREMENTS (Male / Female) Normal Values Technical Quality: 2D ECHO LV Diastolic Diameter PLAX 4.8 cm 4.2 - 5.9 / 3.9 - 5.3 cm LV Systolic Diameter PLAX 3.3 cm IVS Diastolic Thickness 1.1 cm 0.6 - 1.0 / 0.6 - 0.9 cm LVPW Diastolic Thickness 1.1 cm 0.6 - 1.0 / 0.6 - 0.9 cm LV Relative Wall Thickness 0.5 RV Internal Dim ED PLAX 2.7 cm LVOT Diameter 2.0 cm LA Systolic Diameter LX 3.6 cm 3.0 - 4.0 / 2.7 - 3.8 cm LV Ejection Fraction MOD 4C 68.8 % LV Ejection Fraction 4C AL 69.2 % M-MODE Aortic Root Diameter MM 2.9 cm LA Systolic Diameter MM 3.4 cm LA Ao Ratio MM 1.2 AV Cusp Separation MM 2.1 cm DOPPLER AV Peak Velocity 138.0 cm/s AV Peak Gradient 7.6 mmHg AI Peak Velocity 191.0 cm/s AI Peak Gradient 14.6 mmHg AI Pressure Half Time 597.5 ms LVOT Peak Velocity 100.0 cm/s LVOT Peak Gradient 4.0 mmHg AV Area Cont Eq pk 2.3 cm MV Area PHT 3.5 cm Mitral E Point Velocity 80.0 cm/s Mitral A Point Velocity 76.0 cm/s Mitral E to A Ratio 1.1 LV E' Lateral Velocity 7.0 cm/s Mitral E to LV E' Lateral Ratio 11.4 LV E' Septal Velocity 6.3 cm/s Mitral E to LV E' Septal Ratio 12.6 PV Peak Velocity 82.8 cm/s PV Peak Gradient 2.7 mmHg FINDINGS LEFT VENTRICLE The left ventricular systolic function is hyperdynamic with an estimated ejection fraction in the ra nge of 65- 70%. Normal left ventricular size. Wall thickness is normal. No regional wall motion abnormalities are present. RIGHT VENTRICLE Normal right ventricular size and systolic function. LEFT ATRIUM The left atrial size is normal. RIGHT ATRIUM The right atrial size is normal. ATRIAL SEPTUM Normal atrial septal thickness without atrial level shunting by limited color doppler interrogation. AORTA The aortic root and proximal ascending aorta are normal in size on limited imaging. MITRAL VALVE Structurally normal mitral valve. No mitral valve stenosis or regurgitation. AORTIC VALVE Trileaflet aortic valve. Mild thickening of the aortic valve leaflets. Calcification of the right coronary cusp. Calcification of the non-coronary cusp. Trace aortic valve regurgitation. TRICUSPID VALVE Structurally normal tricuspid valve. No tricuspid valve stenosis or regurgitation. PULMONARY VALVE Trivial pulmonary valve regurgitation. VESSELS The inferior vena cava is normal in size. PERICARDIUM No pericardial effusion. Tyrone Sinclair MD (Electronically Signed) Final Date:17 April 2018 12:58
[2018-04-17] MEDS: cefTRIAXone INJ 1,000 MG in SODIUM CHLORIDE 0.9% INJ 100 ML IV SCH (17:00)
[2018-04-17] MEDS: AZITHROMYCIN 250 MG TAB PO SCH (18:21)
--- NOTE | 2018-04-17 19:39 | HHI.PR ---
Subjective Remarks He is better,and on O2 5 L. Good output last PM. Coughs up little. Chest Xray showed diffuse interstitial changes Objective Vital Signs Date Time Temp Pulse Resp B/P (MAP) Pulse Ox O2 Delivery O2 Flow Rate FiO2 04/17/18 18:00 83 04/17/18 18:00 86 19 134/66 (88) 92 04/17/18 16:58 74 15 115/57 (76) 92 04/17/18 16:00 75 04/17/18 16:00 97.9 70 11 91 04/17/18 15:00 74 9 109/54 (72) 92 04/17/18 14:00 71 04/17/18 13:58 74 28 107/54 (71) 91 04/17/18 12:58 72 16 105/55 (72) 89 04/17/18 12:00 84 04/17/18 11:50 97.7 04/17/18 11:05 80 27 118/62 (80) 92 04/17/18 11:00 76 24 111/60 (77) 93 04/17/18 10:00 80 22 117/62 (80) 91 04/17/18 10:00 82 04/17/18 09:59 76 15 117/62 (80) 91 04/17/18 09:58 76 12 115/62 (79) 93 04/17/18 09:46 80 16 122/64 (83) 89 04/17/18 09:46 80 16 122/64 (83) 89 04/17/18 09:45 78 21 90 04/17/18 08:58 86 19 135/54 (81) 90 04/17/18 08:00 78 04/17/18 08:00 82 14 91 04/17/18 07:58 84 17 128/65 (86) 91 04/17/18 07:20 91 Venturi Mask 6.00 50 04/17/18 07:15 97.9 04/17/18 07:00 Venturi Mask 40.00 40 04/17/18 07:00 74 15 95 04/17/18 06:00 68 04/17/18 06:00 67 04/17/18 05:58 68 13 128/66 (86) 94 04/17/18 04:02 92 40 04/17/18 04:00 74 04/17/18 04:00 97.6 74 10 138/73 (94) 96 04/17/18 03:58 74 11 138/73 (94) 94 04/17/18 02:58 68 15 117/62 (80) 94 04/17/18 01:58 68 15 120/65 (83) 94 04/17/18 00:58 70 14 106/60 (75) 96 04/17/18 00:40 96 40.00 04/17/18 00:00 69 04/16/18 23:58 97.5 70 15 107/59 (75) 94 04/16/18 23:09 97 40 04/16/18 22:58 66 15 110/60 (77) 93 04/16/18 22:00 104 04/16/18 21:58 70 19 111/65 (80) 94 04/16/18 21:58 70 19 111/65 (80) 94 04/16/18 21:15 94 Bi-Pap 35 04/16/18 21:10 95 50 04/16/18 20:58 98.1 70 23 110/61 (77) 93 04/16/18 20:00 88 04/16/18 20:00 94 Non-Rebreather 15.00 04/16/18 19:57 93 Partial Rebreather 15.00 I/O 04/16/18 04/16/18 04/16/18 04/17/18 04/17/18 04/17/18 07:00 15:00 23:00 07:00 15:00 23:00 Intake Total 120 ml 240 ml 120 ml 120 ml 650 ml Output Total 375 ml 1000 ml 650 ml Balance 120 ml -135 ml -880 ml 120 ml 0 ml Intake Oral 120 ml 240 ml 120 ml 120 ml 650 ml Output Urine Total 375 ml 1000 ml 650 ml Stool Total 0 ml # Bowel Movements 0 Result Diagram: 04/17/18 0417 04/17/18416 Objective Remarks GENERAL: This averagely built, elderly man is mildly dyspneic. HEENT: Head is normocephalic. Pupils reactive. Tongue is moist. Throat is injected. Nasal mucosa edematous. NECK: Supple, no bruits or thyroid enlargement. LUNGS: Distant breath sounds with expiratory wheezes bilaterally and crackles at the lung bases. HEART: The heart sounds, regular S1, S2. No murmur. ABDOMEN: Soft, protuberant, without masses. No organomegaly or tenderness. EXTREMITIES: Edema 1+ on the left leg and no calf tenderness. Reflexes are 1+, with no gross motor deficits. Cranial nerves are grossly intact. SKIN: No lesions noted. Assessment and Plan Assessment and Plan IMPRESSION: 1. Acute hypoxemic respiratory failure. 2. Pulmonary edema with pleural effusions. 3. Interstitial lung disease. 4. Chronic obstructive pulmonary disease with chronic bronchitis, with acute exacerbation. 5. Diabetes mellitus type 2. 6. History of bladder cancer. 7. History of pulmonary embolism. 8. Hypertension. 9. CKD Plan 1. Continue antibiotics. 2. Duoneb nebs qid. 3. Solumedrol 40 mg IV Q8H 4. CBC,BMP in am 5. Will taper O2 to N/C 4 L. 6. Symbicort 160/4.5 mcg , 2 puffs bid 7. Up with help. 8. Cardiac Evaluation Ron Matthews MD Apr 17, 2018 19:39
[2018-04-17] MEDS: ATORVASTATIN 40 MG TAB PO SCH (20:48)
[2018-04-17] MEDS: TAMSULOSIN HCL 0.4 MG CAP PO SCH (20:48)
[2018-04-18] VITALS (37 sets, daily range): BP systolic 111–149; BP diastolic 64–80; PULSE 62–88; RESP 9–32; TEMP 97.6–97.8; O2SAT 90–96
[2018-04-18] MEDS: CHLORHEXIDINE GLUCONATE 2 % 1 PACK (2 CLOTHS)(taper/protocol) TOPICAL SCH (04:00)
[2018-04-18] MEDS: methylPREDNISolone SOD SUCC 40 MG/1 ML VIAL IV PUSH SCH ×2 (06:29→20:30)
[2018-04-18] MEDS: RESP: ALBUTEROL 2.5 MG/IPRATROPIUM 0.5 MG NEB (SCH) NEB ×3 (07:32→19:48)
[2018-04-18 08:19] LABS: AUTOMATED NEUTROPHIL # 17.9 TH/MM3 (1.8-7.7); BASOPHIL # 0.1 TH/MM3 (0-0.2); BASOPHIL % 0.5 % (0.0-2.0); HEMATOCRIT 43.4 % (39.0-51.0); HEMOGLOBIN 14.7 GM/DL (13.0-17.0); LYMPHOCYTE # 0.8 TH/MM3 (1.0-4.8); MEAN CELL VOLUME 87.9 FL (80.0-100.0); MEAN CORPUSCULAR HEMOGLOBIN 29.9 PG (27.0-34.0); MEAN PLATELET VOLUME 8.2 FL (7.0-11.0); MONO % 1.9 % (0.0-8.0); MONOCYTE # 0.4 TH/MM3 (0-0.9); NEUT % 93.6 % (16.0-70.0); PLATELET COUNT 249 TH/MM3 (150-450); RED BLOOD COUNT 4.94 MIL/MM3 (4.50-5.90); RED CELL DISTRIBUTION WIDTH 13.9 % (11.6-17.2); WHITE BLOOD COUNT 19.2 TH/MM3 (4.0-11.0)
[2018-04-18 08:31] LABS: BICARBONATE 22.3 MEQ/L (21.0-32.0); CALCIUM 8.8 MG/DL (8.5-10.1); MAGNESIUM 2.3 MG/DL (1.5-2.5)
[2018-04-18 08:41] LABS: CREATININE 2.3 MG/DL (0.60-1.30)
[2018-04-18] MEDS: BUDESONIDE-FORMOTEROL 160/4.5 MCG INHALER INH SCH ×2 (08:46→20:30)
[2018-04-18] MEDS: SODIUM CHLORIDE 0.9% FLUSH 10 ML FLUSH IV FLUSH SCH ×2 (08:47→20:30)
[2018-04-18] MEDS: ASPIRIN EC 81 MG TABEC PO SCH (08:47)
[2018-04-18] MEDS: INSULIN ASPART SUPPLEMENTAL SCALE SQ SCH ×4 (08:47→20:32)
[2018-04-18] MEDS: APIXABAN 2.5 MG TABLET PO SCH ×2 (08:48→20:31)
[2018-04-18] MEDS: CARVEDILOL 3.125 MG TAB PO SCH ×2 (08:49→20:31)
[2018-04-18] MEDS: GABAPENTIN 300 MG CAP PO SCH ×3 (08:49→17:03)
[2018-04-18] MEDS: PANTOPRAZOLE SOD 40 MG DELAYED RELEASE TAB PO SCH (08:50)
[2018-04-18] MEDS: LISINOPRIL 5 MG TAB PO SCH (08:50)
--- NOTE | 2018-04-18 11:18 | HHI.PR ---
Subjective Remarks Patient seen and examined today for follow-up on respiratory failure. Patient is improving. Patient did require BiPAP at night. Vital signs remained stable , patient afebrile Objective Vitals Vital Signs Date Time Temp Pulse Resp B/P (MAP) Pulse Ox O2 Delivery O2 Flow Rate FiO2 04/18/18 10:00 74 04/18/18 09:58 76 25 119/65 (83) 91 04/18/18 08:58 80 22 129/68 (88) 90 04/18/18 08:00 80 04/18/18 07:58 97.6 88 32 142/76 (98) 91 04/18/18 07:37 95 Nasal Cannula 6.00 04/18/18 07:00 92 Nasal Cannula 5.00 04/18/18 06:58 78 13 142/74 (96) 93 04/18/18 06:06 70 14 91 04/18/18 04:11 97.7 80 24 142/80 (100) 92 04/18/18 04:00 92 Nasal Cannula 6.00 04/18/18 03:02 64 12 92 04/18/18 02:04 70 13 94 04/18/18 02:03 70 13 94 04/18/18 01:55 92 35 04/18/18 01:06 70 14 93 04/18/18 00:09 66 13 92 04/17/18 23:51 97.4 64 13 108/63 (78) 96 04/17/18 23:35 93 35 04/17/18 22:50 70 13 95 04/17/18 21:09 94 35 04/17/18 20:16 97.8 82 23 112/61 (78) 93 04/17/18 20:01 92 Nasal Cannula 6.00 04/17/18 19:58 80 9 112/61 (78) 94 04/17/18 19:22 Nasal Cannula 4.00 04/17/18 18:00 83 04/17/18 18:00 86 19 134/66 (88) 92 04/17/18 16:58 74 15 115/57 (76) 92 04/17/18 16:00 75 04/17/18 16:00 97.9 70 11 91 04/17/18 15:00 74 9 109/54 (72) 92 04/17/18 14:00 71 04/17/18 13:58 74 28 107/54 (71) 91 04/17/18 12:58 72 16 105/55 (72) 89 04/17/18 12:00 84 04/17/18 11:50 97.7 I/O 04/17/18 04/17/18 04/17/18 04/18/18 04/18/18 04/18/18 07:00 15:00 23:00 07:00 15:00 23:00 Intake Total 120 ml 120 ml 650 ml Output Total 1000 ml 650 ml 250 ml Balance -880 ml 120 ml 0 ml -250 ml Intake Oral 120 ml 120 ml 650 ml Output Urine Total 1000 ml 650 ml 250 ml Stool Total 0 ml # Voids 1 Result Diagram: 04/18/18 0813 04/18/18 0813 Objective Remarks GENERAL: Well-developed, well-nourished, in no acute distress. alert and orientated HEENT: Head is normocephalic without any lesions or masses noted. Facial features are symmetric. Eyes: Extraocular muscles are intact. Conjunctivae were clear. NECK: Supple without any masses. Trachea midline no deviation. No JVD, CARDIAC: Regular rhythm, regular rate. S1/S2 are heard. No murmurs gallops or rubs. LUNGS: Diminished breath sounds noted throughout. No rhonchi or wheeze no use of accessory muscles on inspiration or expiration. ABDOMEN: Soft, nontender. Nondistended. Bowel sounds heard in all 4 quadrants. No organomegaly or masses. Negative rebound, negative guarding EXTREMITIES: No edema, pulses are equal bilaterally. No cyanosis or clubbing NEUROLOGY: Mood and affect appear appropriate. Cranial nerves II through XII grossly intact. Moving all extremities, speech is clear Procedures ECHOCARDIOGRAM, CONCLUSIONS The left ventricular systolic function is hyperdynamic with an estimated ejection fraction in the range of 65- 70%. Normal left ventricular size. Wall thickness is normal. No regional wall motion abnormalities are present. Mild thickening of the aortic valve leaflets, aortic valve sclerosis. Calcification of the right coronary cusp. Calcification of the non-coronary cusp. Trace aortic valve regurgitation. Trivial pulmonary valve regurgitation. Urinary Catheter: No Vascular Central Line Catheter: No A/P Assessment and Plan Acute hypoxic respiratory failure -Possible etiologies could include chronic obstructive pulmonary disease exacerbation, acute congestive heart failure -Patient does have chest x-ray findings of diffuse interstitial disease which could represent edema -Patient with mildly elevated BNP, physical findings still indicating fine crackles in the bases, CT scan also indicates possible edema -Mildly elevated d-dimer, CTA of the chest was performed which did not indicate any embolic event -Arterial blood gas was performed appears to have respiratory compensation for a metabolic acidosis -Continue O2 supplementation maintain O2 sats greater than 92% -BiPAP as needed to maintain O2 sats greater than 92%, if respiration rate greater than 30 -Solu-Medrol 40 mg IV every 8 hours, changed to 40 mg every 12 hours -Duo nebs every 6 hours while awake and every 2 hours as needed -Pro-calcitonin level 0.04 -No evidence of any acute coronary event. Serial cardiac enzymes remain normal , serial EKG shows sinus rhythm without any changes -Echocardiogram results see above -Sieve Repairer consulted for further recommendations Chronic kidney disease stage III -Mild worsening likely secondary to diuretic use -Avoid nephrotoxins -Monitor renal function closely with the continue administration of Lasix Diabetes -Diabetic diet -Accu-Cheks with sliding scale insulin Hypertension, hyperlipidemia, history of TIA -Continue amlodipine 10 mg daily, Coreg 3.125 mg twice daily, triamterene -Continue lisinopril 5 mg daily -continue atorvastatin -Continue Eliquis DVT prevention -Patient is on Eliquis Discharge Planning Discharge planning in 48-72 hours depending on patient's response to treatment. Avila Bethea Apr 18, 2018 11:18
--- NOTE | 2018-04-18 11:23 | PQ ---
Physician Query Response Document PATIENT: RAFA WHITE : 1940 ADMIT DATE: 04/16/2018 12:08 PM DISCH DATE: RESPONDING PROVIDER #: rolanda QUERY TEXT: CDS Clarification ACUTE pulmonary edema in the setting of acute resp failure treated with IV Lasix Other explanation of clinical findings. Unable to determine (no explanation for clinical findings). The patient's Clinical Indicators include: The medical record reflects the following clinical findings, treatment, and risk factors. * Clinical Indicators: Increased SOB, non productive cough, swelling of lower extremeities CXR: "some interstitial disease in the right upper lung on the prior exam versus acute interstitial processes s uch as edema" * Risk Factors: COPD, hx Pulm emboli and DVT, Asthma * Treatment: IV lasix, Oxygen therapy, Duonebs, pulmonary consult Please clarify and document your clinical opinion in the progress notes and discharge summary includi ng the definitive and/or presumptive diagnosis (suspected or probable), related to the above clinical findings. Please include clinical findings supporting your diagnosis. Thank you, Clara Segura : CDS/RN ext. [id number] Query created by: Clara Segura on 04/17/2018 7:51 AM RESPONSE TEXT: Probable acute pulmonary edema superimposed on Interstitial lung disease. Patient received IV Lasix. Electronically signed by: Joel Garay DO 04/18/2018 11:18 AM
[2018-04-18] MEDS: AZITHROMYCIN 250 MG TAB PO SCH (17:02)
[2018-04-18] MEDS: cefTRIAXone INJ 1,000 MG in SODIUM CHLORIDE 0.9% INJ 100 ML IV SCH (17:02)
--- NOTE | 2018-04-18 17:43 | HHI.PR ---
Subjective Remarks ALERT NO DISTRESS ON O2 FEELS MUCH BETTER Objective GENERAL: SKIN: Warm and dry. HEAD: Atraumatic. Normocephalic. EYES: Pupils equal and round. No scleral icterus. No injection or drainage. ENT: No nasal bleeding or discharge. Mucous membranes pink and moist. NECK: Trachea midline. No JVD. CARDIOVASCULAR: Regular rate and rhythm. RESPIRATORY: No accessory muscle use. Clear to auscultation. Breath sounds equal bilaterally. GASTROINTESTINAL: Abdomen soft, non-tender, nondistended. Hepatic and splenic margins not palpable. MUSCULOSKELETAL: Extremities without clubbing, cyanosis, or edema. No obvious deformities. NEUROLOGICAL: Awake and alert. No obvious cranial nerve deficits. Motor grossly within normal limits. Five out of 5 muscle strength in the arms and legs. Normal speech. PSYCHIATRIC: Appropriate mood and affect; insight and judgment normal. Vital Signs Date Time Temp Pulse Resp B/P (MAP) Pulse Ox O2 Delivery O2 Flow Rate FiO2 04/18/18 16:00 72 04/18/18 15:58 97.7 74 17 126/68 (87) 92 04/18/18 14:58 70 19 119/66 (83) 92 04/18/18 14:00 76 04/18/18 13:58 74 22 126/73 (90) 92 04/18/18 12:58 76 23 111/64 (80) 91 04/18/18 12:00 76 04/18/18 11:58 97.7 70 17 116/64 (81) 92 04/18/18 10:58 80 27 128/65 (86) 95 04/18/18 10:00 74 04/18/18 09:58 76 25 119/65 (83) 91 04/18/18 08:58 80 22 129/68 (88) 90 04/18/18 08:00 80 04/18/18 07:58 97.6 88 32 142/76 (98) 91 04/18/18 07:37 95 Nasal Cannula 6.00 04/18/18 07:00 92 Nasal Cannula 5.00 04/18/18 06:58 78 13 142/74 (96) 93 04/18/18 06:06 70 14 91 04/18/18 04:11 97.7 80 24 142/80 (100) 92 04/18/18 04:00 92 Nasal Cannula 6.00 04/18/18 03:02 64 12 92 04/18/18 02:04 70 13 94 04/18/18 02:03 70 13 94 04/18/18 01:55 92 35 04/18/18 01:06 70 14 93 04/18/18 00:09 66 13 92 04/17/18 23:51 97.4 64 13 108/63 (78) 96 04/17/18 23:35 93 35 04/17/18 22:50 70 13 95 04/17/18 21:09 94 35 04/17/18 20:16 97.8 82 23 112/61 (78) 93 04/17/18 20:01 92 Nasal Cannula 6.00 04/17/18 19:58 80 9 112/61 (78) 94 04/17/18 19:22 Nasal Cannula 4.00 04/17/18 18:00 83 04/17/18 18:00 86 19 134/66 (88) 92 I/O 04/17/18 04/17/18 04/17/18 04/18/18 04/18/18 04/18/18 07:00 15:00 23:00 07:00 15:00 23:00 Intake Total 120 ml 120 ml 650 ml Output Total 1000 ml 650 ml 250 ml Balance -880 ml 120 ml 0 ml -250 ml Intake Oral 120 ml 120 ml 650 ml Output Urine Total 1000 ml 650 ml 250 ml Stool Total 0 ml # Voids 1 Result Diagram: 04/18/18 0813 04/18/18 0813 Assessment and Plan Assessment and Plan IMPRESSION COPD EXACERBATION PULM FIBROSIS RESPIRATORY FAILURE PLAN O2 BRONCHODILATORS STEROIDS INCREASE ACTIVITY Alexey Blackburn MD Apr 18, 2018 17:43
[2018-04-18] MEDS: TAMSULOSIN HCL 0.4 MG CAP PO SCH (20:30)
[2018-04-18] MEDS: ATORVASTATIN 40 MG TAB PO SCH (20:31)
[2018-04-19] VITALS (41 sets, daily range): BP systolic 109–158; BP diastolic 62–91; PULSE 60–88; RESP 12–37; TEMP 97.6–98.3; O2SAT 88–95
[2018-04-19] MEDS: CHLORHEXIDINE GLUCONATE 2 % 1 PACK (2 CLOTHS)(taper/protocol) TOPICAL SCH (04:00)
[2018-04-19 05:51] LABS: CALCIUM 8.7 MG/DL (8.5-10.1)
[2018-04-19 05:52] LABS: BICARBONATE 22.4 MEQ/L (21.0-32.0)
[2018-04-19 05:55] LABS: CREATININE 1.9 MG/DL (0.60-1.30)
[2018-04-19] MEDS: RESP: ALBUTEROL 2.5 MG/IPRATROPIUM 0.5 MG NEB (SCH) NEB ×3 (07:28→20:02)
[2018-04-19] MEDS: INSULIN ASPART SUPPLEMENTAL SCALE SQ SCH ×4 (09:50→20:24)
[2018-04-19] MEDS: PANTOPRAZOLE SOD 40 MG DELAYED RELEASE TAB PO SCH (09:51)
[2018-04-19] MEDS: GABAPENTIN 300 MG CAP PO SCH ×2 (09:52→20:23)
[2018-04-19] MEDS: APIXABAN 2.5 MG TABLET PO SCH ×2 (09:53→20:23)
[2018-04-19] MEDS: ASPIRIN EC 81 MG TABEC PO SCH (09:54)
[2018-04-19] MEDS: CARVEDILOL 3.125 MG TAB PO SCH ×2 (09:54→20:23)
[2018-04-19] MEDS: LISINOPRIL 5 MG TAB PO SCH (09:54)
[2018-04-19] MEDS: methylPREDNISolone SOD SUCC 40 MG/1 ML VIAL IV PUSH SCH ×2 (09:58→20:22)
[2018-04-19] MEDS: BUDESONIDE-FORMOTEROL 160/4.5 MCG INHALER INH SCH ×2 (09:59→20:21)
[2018-04-19] MEDS: SODIUM CHLORIDE 0.9% FLUSH 10 ML FLUSH IV FLUSH SCH ×2 (10:01→20:22)
--- NOTE | 2018-04-19 10:03 | HHI.PR ---
Subjective Remarks Patient seen and examined today for follow-up on respiratory failure. Patient is improving on a daily basis. He is now on 3 L nasal cannula with good O2 saturations. Patient did not require BiPAP last evening. Patient remains afebrile. Objective Vitals Vital Signs Date Time Temp Pulse Resp B/P (MAP) Pulse Ox O2 Delivery O2 Flow Rate FiO2 04/19/18 08:00 3.00 04/19/18 07:29 92 Nasal Cannula 3.00 04/19/18 06:58 68 14 129/69 (89) 90 04/19/18 06:00 70 04/19/18 05:05 84 33 158/76 (103) 91 04/19/18 04:58 80 37 146/74 (98) 92 04/19/18 04:00 66 04/19/18 03:58 97.6 66 14 133/72 (92) 91 04/19/18 02:58 76 15 142/75 (97) 91 04/19/18 02:00 78 04/19/18 01:58 68 13 127/68 (87) 90 04/19/18 00:58 62 20 109/64 (79) 90 04/19/18 00:00 60 04/18/18 23:58 97.8 62 12 112/64 (80) 93 04/18/18 22:58 68 15 126/65 (85) 93 04/18/18 22:00 72 04/18/18 21:58 68 16 124/66 (85) 93 04/18/18 20:58 72 9 122/70 (87) 95 04/18/18 20:00 75 04/18/18 20:00 96 Nasal Cannula 5.00 04/18/18 19:58 97.7 76 12 129/69 (89) 96 04/18/18 19:52 94 Nasal Cannula 5.00 04/18/18 18:58 82 25 142/76 (98) 94 04/18/18 18:00 80 04/18/18 17:58 78 20 149/78 (101) 91 04/18/18 16:58 66 12 124/65 (84) 94 04/18/18 16:00 72 04/18/18 15:58 97.7 74 17 126/68 (87) 92 04/18/18 14:58 70 19 119/66 (83) 92 04/18/18 14:00 76 04/18/18 13:58 74 22 126/73 (90) 92 04/18/18 12:58 76 23 111/64 (80) 91 04/18/18 12:00 76 04/18/18 11:58 97.7 70 17 116/64 (81) 92 04/18/18 10:58 80 27 128/65 (86) 95 04/18/18 10:00 74 I/O 04/18/18 04/18/18 04/18/18 04/19/18 04/19/18 04/19/18 07:00 15:00 23:00 07:00 15:00 23:00 Intake Total 480 ml 480 ml Output Total 250 ml 600 ml 550 ml Balance -250 ml -120 ml -70 ml Intake Oral 480 ml 480 ml Output Urine Total 250 ml 600 ml 550 ml Stool Total 0 ml 0 ml # Voids 1 Result Diagram: 04/18/18 0813 04/19/18 0536 Objective Remarks GENERAL: Well-developed, well-nourished, in no acute distress. alert and orientated HEENT: Head is normocephalic without any lesions or masses noted. Facial features are symmetric. Eyes: Extraocular muscles are intact. Conjunctivae were clear. NECK: Supple without any masses. Trachea midline no deviation. No JVD, CARDIAC: Regular rhythm, regular rate. S1/S2 are heard. No murmurs gallops or rubs. LUNGS: Diminished breath sounds noted throughout. No rhonchi or wheeze no use of accessory muscles on inspiration or expiration. ABDOMEN: Soft, nontender. Nondistended. Bowel sounds heard in all 4 quadrants. No organomegaly or masses. Negative rebound, negative guarding EXTREMITIES: No edema, pulses are equal bilaterally. No cyanosis or clubbing NEUROLOGY: Mood and affect appear appropriate. Cranial nerves II through XII grossly intact. Moving all extremities, speech is clear Procedures ECHOCARDIOGRAM, CONCLUSIONS The left ventricular systolic function is hyperdynamic with an estimated ejection fraction in the range of 65- 70%. Normal left ventricular size. Wall thickness is normal. No regional wall motion abnormalities are present. Mild thickening of the aortic valve leaflets, aortic valve sclerosis. Calcification of the right coronary cusp. Calcification of the non-coronary cusp. Trace aortic valve regurgitation. Trivial pulmonary valve regurgitation. Urinary Catheter: No Vascular Central Line Catheter: No A/P Assessment and Plan Acute hypoxic respiratory failure -Possible etiologies could include chronic obstructive pulmonary disease exacerbation, acute congestive heart failure -Patient does have chest x-ray findings of diffuse interstitial disease which could represent edema -Patient with mildly elevated BNP, physical findings still indicating fine crackles in the bases, CT scan also indicates possible edema -Mildly elevated d-dimer, CTA of the chest was performed which did not indicate any embolic event -Arterial blood gas was performed appears to have respiratory compensation for a metabolic acidosis -Continue O2 supplementation maintain O2 sats greater than 92% -BiPAP as needed to maintain O2 sats greater than 92%, if respiration rate greater than 30 -Solu-Medrol 40 mg IV every 12 hours -Duo nebs every 6 hours while awake and every 2 hours as needed -Patient continued on Rocephin and Zithromax -Pro-calcitonin level 0.04 -No evidence of any acute coronary event. Serial cardiac enzymes remain normal , serial EKG shows sinus rhythm without any changes -Echocardiogram results see above -Environmental Science Instructor consulted for further recommendations -Obtain home oxygen walk study Chronic kidney disease stage III -Improvement overnight -Avoid nephrotoxins -Monitor renal function closely with the continue administration of Lasix Diabetes -Diabetic diet -Accu-Cheks with sliding scale insulin Hypertension, hyperlipidemia, history of TIA -Continue amlodipine 10 mg daily, Coreg 3.125 mg twice daily, triamterene -Continue lisinopril 5 mg daily -continue atorvastatin -Continue Eliquis DVT prevention -Patient is on Eliquis Discharge Planning Anticipate discharging home with home oxygen in 24-48 hours depending on patient 's continued response to treatment Avila Bethea Apr 19, 2018 10:03
[2018-04-19] MEDS ORDERED: OXYGENDME NAS.CANULA (15:38)
[2018-04-19] MEDS: cefTRIAXone INJ 1,000 MG in SODIUM CHLORIDE 0.9% INJ 100 ML IV SCH (16:55)
[2018-04-19] MEDS: AZITHROMYCIN 250 MG TAB PO SCH (16:58)
[2018-04-19] MEDS: TAMSULOSIN HCL 0.4 MG CAP PO SCH (20:23)
[2018-04-19] MEDS: ATORVASTATIN 40 MG TAB PO SCH (20:23)
[2018-04-20] VITALS (19 sets, daily range): BP systolic 137–179; BP diastolic 66–85; PULSE 68–82; RESP 12–21; TEMP 97.6–97.8; O2SAT 91–96
[2018-04-20] MEDS: CHLORHEXIDINE GLUCONATE 2 % 1 PACK (2 CLOTHS)(taper/protocol) TOPICAL SCH (04:00)
[2018-04-20] MEDS: RESP: ALBUTEROL 2.5 MG/IPRATROPIUM 0.5 MG NEB (SCH) NEB (07:22)
[2018-04-20] MEDS: INSULIN ASPART SUPPLEMENTAL SCALE SQ SCH ×2 (08:00→12:40)
[2018-04-20] MEDS ORDERED: PRED10 PO (08:36)
[2018-04-20] MEDS ORDERED: AZIT250T3 PO (08:36)
[2018-04-20] MEDS ORDERED: LISI-519 PO (08:36)
[2018-04-20] MEDS ORDERED: Albuterol-Ipratropium Neb NEB (08:36)
[2018-04-20] MEDS ORDERED: Budeson-Formot 160-4.5 Mcg Inh INH (08:36)
--- NOTE | 2018-04-20 08:37 | HHI.DCPOC ---
Discharge Care Plan Diagnosis: (1) Acute respiratory failure with hypoxia (2) Chronic interstitial lung disease (3) Acute kidney injury Goals to Promote Your Health * To prevent worsening of your condition and complications * To maintain your health at the optimal level Directions to Meet Your Goals Take your medications as prescribed Follow your dietary instruction Follow activity as directed Keep your appointments as scheduled Take your immunizations and boosters as scheduled If your symptoms worsen call your PCP, if no PCP go to Urgent Care Center or Emergency Room Smoking is Dangerous to Your Health. Avoid second hand smoke Call the 24-hour hour crisis hotline for domestic abuse at Avila Bethea Apr 20, 2018 08:37
--- NOTE | 2018-04-20 08:38 | HHI.FF ---
Face to Face Verification Diagnosis: (1) Acute respiratory failure with hypoxia (2) Chronic interstitial lung disease Physical Therapy Order: Evaluate and Treat, Improve ambulation, Strength and gait training Home Health Nursing Order: Medical education Signs/symptoms of disease process Oxygen administration education Nursing assessment with vital signs I have seen patient Denilson Malik on 04/20/18. My clinical findings support the need for the requested home health care services because: Patient has SOB I certify that my clinical findings support that this patient is homebound because: Hx COPD- exertion dyspnea/weakness Avila Bethea Apr 20, 2018 08:38
--- NOTE | 2018-04-20 08:43 | HHI.DS ---
Discharge Summary Admission Date Apr 16, 2018 at 12:08 Discharge Date: Apr 20, 2018 Admitting Diagnosis hypoxic respiratory failure (1) Acute respiratory failure with hypoxia ICD Code: J96.01 - Acute respiratory failure with hypoxia Diagnosis: Principal Status: Acute (2) Chronic interstitial lung disease ICD Code: J84.9 - Interstitial pulmonary disease, unspecified Diagnosis: Principal (3) Acute kidney injury ICD Code: N17.9 - Acute kidney failure, unspecified Diagnosis: Principal Procedures ECHOCARDIOGRAM, CONCLUSIONS The left ventricular systolic function is hyperdynamic with an estimated ejection fraction in the range of 65- 70%. Normal left ventricular size. Wall thickness is normal. No regional wall motion abnormalities are present. Mild thickening of the aortic valve leaflets, aortic valve sclerosis. Calcification of the right coronary cusp. Calcification of the non-coronary cusp. Trace aortic valve regurgitation. Trivial pulmonary valve regurgitation. Brief History - From Admission 78-year-old male with known history of hypertension, hyperlipidemia, pulmonary emboli, DVT, diabetes, bladder cancer who presented to the emergency department because of acute with progressive onset of fatigue, shortness of breath. Patient was in his normal state of health until yesterday after he did physical therapy at [place] [facility]. After that he came home and started developing fatigue. He went to bed last evening and he woke up a middle and night in order to go to the restroom. At that time he started developing some tingling in his fingers, worsening fatigue. When the patient woke up this morning he has significant fatigue, shortness of breath, difficulty breathing. He told his that he did not feel right he had no energy to get out of bed and he could not breathe. Patient came to the emergency department for evaluation. Patient was found to have hypoxic respiratory failure and placed on partial nonrebreather at 15 L. Patient had chest x-ray performed which did show fairly diffuse interstitial disease which could represent progression of interstitial disease or acute interstitial process such as edema. Patient was given Solu-Medrol and updraft treatment in the emergency department without any significant change in clinical status. Patient was admitted to the ICU for continued management care. CBC/BMP: 04/18/18 0813 04/19/18 0536 Significant Findings Laboratory Tests Test 04/17/18 08:48 04/18/18 08:13 04/19/18 05:36 White Blood Count 19.2 TH/MM3 (4.0-11.0) Neutrophils (%) (Auto) 93.6 % (16.0-70.0) Lymphocytes (%) (Auto) 4.0 % (9.0-44.0) Neutrophils # (Auto) 17.9 TH/MM3 (1.8-7.7) Lymphocytes # (Auto) 0.8 TH/MM3 (1.0-4.8) Blood Urea Nitrogen 57 MG/DL (7-18) 63 MG/DL (7-18) Creatinine 2.30 MG/DL (0.60-1.30) 1.90 MG/DL (0.60-1.30) Random Glucose 180 MG/DL (74-106) 196 MG/DL (74-106) Estimat Glomerular Filtration Rate 28 ML/MIN (>89) 34 ML/MIN (>89) Imaging Last Impressions Chest X-Ray 04/16/18 1036 Signed Impressions: CONCLUSION: Fairly diffuse interstitial disease. This could represent progression of inters titial disease. There was some interstitial disease in the right upper lung on the prior exam versus acute interstitial processes such as edema.. CT Angiography 04/16/18 0000 Signed Impressions: CONCLUSION: 1. No pulmonary embolus. 2. Prominent emphysematous change. 3. Interstitial disease. This appears worse when compared to the prior CT exam ination suggesting worsening interstitial disease versus superimposed edema. 4. Adenopathy in the mediastinum. This is clearly new when compared to the alo or exam. 5. Mild bilateral pleural effusions which are new. PE at Discharge GENERAL: Well-developed, well-nourished, in no acute distress. alert and orientated HEENT: Head is normocephalic without any lesions or masses noted. Facial features are symmetric. Eyes: Extraocular muscles are intact. Conjunctivae were clear. NECK: Supple without any masses. Trachea midline no deviation. No JVD, CARDIAC: Regular rhythm, regular rate. S1/S2 are heard. No murmurs gallops or rubs. LUNGS: Diminished breath sounds noted throughout. No rhonchi or wheeze no use of accessory muscles on inspiration or expiration. ABDOMEN: Soft, nontender. Nondistended. Bowel sounds heard in all 4 quadrants. No organomegaly or masses. Negative rebound, negative guarding EXTREMITIES: No edema, pulses are equal bilaterally. No cyanosis or clubbing NEUROLOGY: Mood and affect appear appropriate. Cranial nerves II through XII grossly intact. Moving all extremities, speech is clear Hospital Course 78-year-old male with known history of hypertension, hyperlipidemia, pulmonary emboli, pulmonary fibrosis, history DVT, diabetes, who originally presented to the emergency department because of progressive onset of fatigue and acute onset of shortness of breath, dyspnea. Patient was evaluated emergency department and found to have acute hypoxic respiratory failure requiring nonrebreather at 15 L. Chest x-ray at that time did show fairly diffuse interstitial disease which could have represented progression of interstitial disease versus acute interstitial process such as edema. Patient was admitted to ICU and started on antibiotics to include Rocephin, Zithromax. He is started on Solu-Medrol 60 mg IV every 8 hours, nebulizer treatments every 6 hours while awake and every 2 hours as needed. Patient did have physical findings of fluid overload with lower extremity edema, crackles noted in the bases and underwent diuresis with Lasix 40 mg IV 2 with significant improvement of his respiratory status. Patient was requiring BiPAP at night for O2 supplementation. Soda Dispenser was consulted and made recommendations during the patient's stay in the hospital. Patient tolerated treatment well and has been successfully weaned down to 2 L nasal cannula. A home oxygen walk study was performed which indicated patient will require oxygen upon discharge. Patient clinically stable at this time. Case management consulted to arrange home oxygen, home health care. Patient will need to follow-up with his mixing engineer for continued management. Patient clinically stable at this time we will plan discharge home accordingly, once arrangements made by case management. Pt Condition on Discharge: Stable Discharge Disposition: Disch w/ Home Health Serv Discharge Time: > 30 minutes Discharge Instructions DIET: Follow Instructions for: Heart Healthy Diet, Diabetic Diet Activities you can perform: Regular-No Restrictions Follow up Referrals: PCP Follow-up - 1 Week Pulmonology - 1 Week with Ron Matthews MD New Medications: Oxygen (O2) (Oxygen (O2)) Device LITER ANNABEL.CANULA CONTINUOUS for Prevent Hypoxemia, #3 Oxygen Concentrator Portable Gaseous 2 L/min via Nasal Canula Continuous For 99 months Prednisone (Prednisone) 10 Mg Tab 10 MG PO DIRECTED for Pulmonary fibrosis, #30 TAB 0 Refills Prednisone 40 mg daily for 3 days, then prednisone 30 mg daily for 3 days, then prednisone 20 mg daily for 3 days, then prednisone 10 mg daily for 3 days Azithromycin (Azithromycin) 250 Mg Tab 500 MG PO DAILY@1700 for Infection for 3 Days, TAB Lisinopril (Lisinopril) 5 Mg Tab 5 MG PO DAILY for Blood Pressure Management for 30 Days, #30 TAB [Albuterol-Ipratropium Neb] () 1 AMPULE NEBU 1 AMPULE NEB Q6HR WHILE AWAKE NEB for Breathing Treatment for 30 Days, AMPULE [Budeson-Formot 160-4.5 Mcg Inh] () 60 PUFF AERO 2 PUFF INH Q12HR for Broncospasm for 30 Days Continued Medications: Amlodipine (Amlodipine) 10 Mg Tab 10 MG PO DAILY for Blood Pressure Management, #30 TAB 0 Refills Apixaban (Eliquis) 2.5 Mg Tab 2.5 MG PO BID for Blood Clot Prevention, TAB [address] (Aspirin EC) 81 Mg Tabdr 81 MG PO DAILY for Stroke Prevention, #30 TAB 0 Refills Atorvastatin (Atorvastatin) 40 Mg Tab 40 MG PO HS for Stroke Prevention, #30 TAB Carvedilol (Carvedilol) 3.125 Mg Tab 3.125 MG PO BID, #60 TAB 0 Refills Gabapentin (Gabapentin) 300 Mg Cap 300 MG PO TID, #90 CAP 0 Refills Glimepiride (Glimepiride) 1 Mg Tab 1 MG PO DAILY for Blood Sugar Management, #30 TAB 0 Refills Take with breakfast or first main meal Ipratropium-Albuterol Inh (Combivent Respimat Inh) 20-100 Shelter/Act Aero 1 PUFF INH QID for Asthma Management, #1 INHALER 0 Refills Niacin (Niacin) 500 Mg Tab 500 MG PO DAILY for Cholesterol Management, #30 TAB 0 Refills Omeprazole (Omeprazole) 40 Mg Cap 40 MG PO DAILY, #30 CAP 0 Refills Tamsulosin (Flomax) 0.4 Mg Cap 0.4 MG PO HS for urinary retention, #30 CAP Triamterene (Dyrenium) 50 Mg Cap 50 MG PO DAILY for Edema, #30 CAP 0 Refills Avila Bethea Apr 20, 2018 08:43
[2018-04-20] MEDS: SODIUM CHLORIDE 0.9% FLUSH 10 ML FLUSH IV FLUSH SCH (08:54)
[2018-04-20] MEDS: methylPREDNISolone SOD SUCC 40 MG/1 ML VIAL IV PUSH SCH (08:54)
[2018-04-20] MEDS: LISINOPRIL 5 MG TAB PO SCH (08:54)
[2018-04-20] MEDS: CARVEDILOL 3.125 MG TAB PO SCH (08:55)
[2018-04-20] MEDS: GABAPENTIN 300 MG CAP PO SCH (08:55)
[2018-04-20] MEDS: ASPIRIN EC 81 MG TABEC PO SCH (08:56)
[2018-04-20] MEDS: PANTOPRAZOLE SOD 40 MG DELAYED RELEASE TAB PO SCH (08:56)
[2018-04-20] MEDS: APIXABAN 2.5 MG TABLET PO SCH (08:57)
[2018-04-20] MEDS: BUDESONIDE-FORMOTEROL 160/4.5 MCG INHALER INH SCH (08:57)
== END 2018-04-20 14:15 | disposition home health service (06) | DRG 189 ==
LOC: PHED 10:19 → UNDOADMIN 12:08 → PHEDA 12:08 → PHICU 13:26
PROVIDERS: ADMIT Hospitalist; ATTEND Hospitalist
PROC: 5A09357 Assistance with Respiratory Ventilation, Less than 24 Consecutive Hours, Continuous Positive Airway Pressure (ICD-10-PCS; principal; 2018-04-16)
DX: J96.01 Acute respiratory failure with hypoxia (principal); J81.0 Acute pulmonary edema; N17.9 Acute kidney failure, unspecified; E87.2 Acidosis; J90 Pleural effusion, not elsewhere classified; J44.1 Chronic obstructive pulmonary disease with (acute) exacerbation; E11.22 Type 2 diabetes mellitus with diabetic chronic kidney disease; J84.10 Pulmonary fibrosis, unspecified; N18.3 Chronic kidney disease, stage 3 (moderate); I12.9 Hypertensive chronic kidney disease with stage 1 through stage 4 chronic kidney disease, or unspecified chronic kidney disease; E78.5 Hyperlipidemia, unspecified; N40.0 Benign prostatic hyperplasia without lower urinary tract symptoms; E87.70 Fluid overload, unspecified; I08.2 Rheumatic disorders of both aortic and tricuspid valves; K21.9 Gastro-esophageal reflux disease without esophagitis; T50.2X5A Adverse effect of carbonic-anhydrase inhibitors, benzothiadiazides and other diuretics, initial encounter; F32.9 Major depressive disorder, single episode, unspecified; M19.90 Unspecified osteoarthritis, unspecified site; Z86.711 Personal history of pulmonary embolism; Z85.51 Personal history of malignant neoplasm of bladder; Z86.718 Personal history of other venous thrombosis and embolism; Z86.73 Personal history of transient ischemic attack (TIA), and cerebral infarction without residual deficits; Z85.528 Personal history of other malignant neoplasm of kidney; Z79.84 Long term (current) use of oral hypoglycemic drugs; Z87.891 Personal history of nicotine dependence; Z79.01 Long term (current) use of anticoagulants
CPT/HCPCS: 36600; 71045; 71275; 80048; 80053; 80061; 82533; 82550; 82805; 82948; 83605; 83735; 83880; 84145; 84484; 85025; 85379; 85610; 85730; 87641; 93005; 93306; 94002; 94003; 94150; 94618; 94640; 94664; 96374; J0456; J0696; J1815; J1940; J2920; J2930; J7050; Q9967

== ENCOUNTER 2018-08-04 13:27 | Inpatient (IN) ==
[2018-08-04] MEDS ORDERED: MethylPREDNISolone Sod Succinate Inj 125 MG/2 ML Vial IV.PUSH ONE (13:34)
--- NOTE | 2018-08-04 13:43 | ED ---
HPI General Chief Complaint: Shortness of Breath/Dyspnea Stated Complaint: Sob x Friday Time Seen by Provider: 08/04/18 13:34 Source: patient Mode of arrival: ambulatory Limitations: other (Clinical condition) History of Present Illness 78-year-old male states he has been short of breath over the past couple of days. He also notes some congestion. He denies specific fever. He notes chest pain in the center of his chest. Patient is limited given able to only talk in short sentences with acute shortness of breath. Related Data Home Medications Medication Instructions Recorded Confirmed amlodipine 10 mg PO DAILY 08/04/18 08/04/18 apixaban [Eliquis] 2.5 mg PO BID 08/04/18 08/04/18 aspirin 81 mg PO DAILY 08/04/18 08/04/18 atorvastatin 10 mg PO DAILY 08/04/18 08/04/18 carvedilol 25 mg PO BID 08/04/18 08/04/18 cholecalciferol (vitamin D3) 1 tab PO DAILY 08/04/18 08/04/18 [Vitamin D3] gabapentin 300 mg PO TID 08/04/18 08/04/18 glimepiride 1 mg PO QAM 08/04/18 08/04/18 niacin 500 mg PO DAILY 08/04/18 08/04/18 tamsulosin [Flomax] 0.4 mg PO DAILY 08/04/18 08/04/18 Allergies Allergy/AdvReac Type Severity Reaction Status Date / Time No Known Allergies Allergy Unknown Uncoded 04/16/18 10:48 PMFSH History History Provided By: Patient (copd per patient) Medical History Medical History Cancer of bladder (Acute) High cholesterol (Acute) Hypertension (Acute) Diabetes (Acute) History of deep vein thrombophlebitis of lower extremity (Acute) History of pulmonary embolism (Acute) Social History Social History Substance History: No History of Abuse Smoking Status: Former smoker How Often Do You Have a Drink Containing Alcohol: Never Recent Travel in [facility] within the Last 8 Weeks: No Recent Out of Country Travel within the Last 8 Weeks: No Exam Narrative Exam Narrative: GENERAL: 78 y/o male who appears short of breath SKIN: Focused skin assessment warm/dry. HEAD: Atraumatic. Normocephalic. EYES: Pupils equal and round. No scleral icterus. No injection or drainage. ENT: No nasal bleeding or discharge. Mucous membranes pink and moist. NECK: Trachea midline. CARDIOVASCULAR: Regular rate and rhythm. RESPIRATORY: No accessory muscle use. decreased breath sounds bilaterally. GASTROINTESTINAL: Abdomen soft, non-tender, nondistended MUSCULOSKELETAL: No obvious deformities. No clubbing. No cyanosis. NEUROLOGICAL: Awake. Moves all extremities. Normal speech. Course Reevaluation(s) Reevaluation #1: On reevaluation patient is breathing more comfortably on BiPAP we will continue to monitor. Reevaluation #2: On review of ABG patient is with low PO2 will increase FiO2. Patient and family updated and agrees to admission. Patient again has fibrosis- like pattern. He will need to be monitored in the ICU overnight Consultations Consultation #1: dr martínez agrees to admit Initial Documented Vital Signs Pulse Rate 74 08/04/18 13:50 Respiratory Rate 20 08/04/18 13:50 Pulse Oximetry 96 08/04/18 13:50 Last Documented Vital Signs Temperature 97.7 F 08/04/18 13:53 Pulse Rate 80 08/04/18 14:06 Respiratory Rate 24 08/04/18 13:53 Blood Pressure 168/69 H 08/04/18 13:53 Pulse Oximetry 96 08/04/18 14:46 Critical Care Time Critical Care Time: Yes Total Critical Care Time: 45 Attestation: Aggregate critical care time was 45 minutes. Time to perform other separately billable procedures was not included in the critical care time. My time did not include minutes spent treating any other patients simultaneously or on activities that did not directly contribute to the patient's treatment. The services I provided to this patient were to treat and/or prevent clinically significant deterioration that could result in: Respiratory failure, I provided critical care services requiring my management, as noted below: Chart data review, documentation time, medication orders and management, vital sign assessments/reviewing monitor data, ordering and reviewing lab tests, ordering and interpreting/reviewing x-rays and diagnostic studies, care of the patient and discussion of the patient with the admitting physicians. Medical Decision Making MDM Narrative Medical decision making narrative: Patient arrived with significant hypoxemia on his home oxygen. Patient placed on nonrebreather and then placed on BiPAP. Will adjust settings for patient's tachypnea and shortness of breath. Will dose with nebs and Solu-Medrol while awaiting other testing Medical Screen Exam Complete: Yes Emergency Medical Condition: Yes Differential Diagnosis Differential Diagnosis: Pneumonia, CHF, COPD, renal failure, anemia, PE, PA, pneumothorax Medical Records Medical records reviewed: Yes I reviewed the patient's medical records. Patient recently hospitalized at the end of March with similar presentation at that time there was concern for edema versus progressive interstitial disease. Echo reviewed with normal EF. Patient was given Lasix as well as steroids and breathing treatments and had his oxygen slowly wean down but was requiring BiPAP at night. Lab Data Lab results reviewed: Yes I reviewed the patient's lab results. Result diagrams: 08/04/18 13:45 08/04/18 13:45 Lab Results 08/04/18 08/04/18 08/04/18 Range/Units 13:45 13:45 13:45 CBC w Diff Auto diff final WBC 10.7 (4.0-11.0) th/mm3 RBC 5.05 (4.50-5.90) mil/mm3 Hgb 14.8 (13.0-17.0) gm/dL Hct 43.2 (39.0-51.0) % MCV 85.5 (80.0-100.0) fL MCH 29.3 (27.0-34.0) pg MCHC 34.3 (32.0-36.0) % RDW 13.6 (11.6-17.2) % Plt Count 260 (150-450) th/mm3 MPV 8.3 (7.0-11.0) fL Neut % (Auto) 68.2 (16.0-70.0) % Lymph % (Auto) 19.5 (9.0-44.0) % [place] % (Auto) 7.5 (0.0-8.0) % Eos % (Auto) 2.9 (0.0-4.0) % Baso % (Auto) 1.9 (0.0-2.0) % Neut # (Auto) 7.3 (1.8-7.7) th/mm3 Lymph # (Auto) 2.1 (1.0-4.8) th/mm3 [place] # (Auto) 0.8 (0.0-0.9) th/mm3 Eos # (Auto) 0.3 (0.0-0.4) th/mm3 Baso # (Auto) 0.2 (0.0-0.2) th/mm3 WBC Differential . Differential Comment . PT 11.2 (9.8-11.6) sec INR 1.1 Ratio APTT 31.7 H (24.3-30.1) sec Puncture Site Patient Temperature O2 Saturation (90-100) % ABG pH (7.380-7.420) ABG pCO2 (38-42) mmHg ABG pO2 (61-120) mmHg ABG HCO3 (22-26) mmol/L ABG O2 Content (12.0-20.0) Vol % ABG Base Excess (-2-2) mmol/L ABG Methemoglobin (0-2) % Vish Test Hemoglobin (12.0-16.0) G/DL Carboxyhemoglobin (0-4) % O2 Delivery Device Vent Setting Inspired O2 % Critical Value Sodium 139 (136-145) meq/L Potassium (3.5-5.1) meq/L Chloride 105 (98-107) meq/L Carbon Dioxide 22.7 (21.0-32.0) meq/L Anion Gap 11 (5-15) meq/L BUN 26 H (7-18) mg/dL Creatinine 1.90 H (0.60-1.30) mg/dL Estimated GFR 34 L (>89) mL/min Random Glucose 171 H (74-106) mg/dL Lactic Acid (0.4-2.0) mmol/L Calcium 9.0 (8.5-10.1) mg/dL Magnesium 2.1 (1.5-2.5) mg/dL Total Bilirubin 0.8 (0.2-1.0) mg/dL AST 27 (15-37) U/L ALT 14 (12-78) U/L Alkaline Phosphatase 93 (45-117) U/L Troponin I Less than 0.02 L (0.02-0.05) ng/mL B-Natriuretic Peptide (0-100) pg/mL Total Protein 7.7 (6.4-8.2) g/dL Albumin 3.3 L (3.4-5.0) g/dL 08/04/18 08/04/18 08/04/18 Range/Units 13:45 14:36 14:40 CBC w Diff WBC (4.0-11.0) th/mm3 RBC (4.50-5.90) mil/mm3 Hgb (13.0-17.0) gm/dL Hct (39.0-51.0) % MCV (80.0-100.0) fL MCH (27.0-34.0) pg MCHC (32.0-36.0) % RDW (11.6-17.2) % Plt Count (150-450) th/mm3 MPV (7.0-11.0) fL Neut % (Auto) (16.0-70.0) % Lymph % (Auto) (9.0-44.0) % [place] % (Auto) (0.0-8.0) % Eos % (Auto) (0.0-4.0) % Baso % (Auto) (0.0-2.0) % Neut # (Auto) (1.8-7.7) th/mm3 Lymph # (Auto) (1.0-4.8) th/mm3 [place] # (Auto) (0.0-0.9) th/mm3 Eos # (Auto) (0.0-0.4) th/mm3 Baso # (Auto) (0.0-0.2) th/mm3 WBC Differential Differential Comment PT (9.8-11.6) sec INR Ratio APTT (24.3-30.1) sec Puncture Site Left radial Patient Temperature 98.6 O2 Saturation 88 L* (90-100) % ABG pH 7.46 H (7.380-7.420) ABG pCO2 33 L (38-42) mmHg ABG pO2 52 L* (61-120) mmHg ABG HCO3 23 (22-26) mmol/L ABG O2 Content 17.0 (12.0-20.0) Vol % ABG Base Excess -0.2 (-2-2) mmol/L ABG Methemoglobin 1.2 (0-2) % Vish Test Present Hemoglobin 13.7 (12.0-16.0) G/DL Carboxyhemoglobin 2.3 (0-4) % O2 Delivery Device Bipap Vent Setting [id number] Inspired O2 50 % Critical Value Yes Sodium (136-145) meq/L Potassium (3.5-5.1) meq/L Chloride (98-107) meq/L Carbon Dioxide (21.0-32.0) meq/L Anion Gap (5-15) meq/L BUN (7-18) mg/dL Creatinine (0.60-1.30) mg/dL Estimated GFR (>89) mL/min Random Glucose (74-106) mg/dL Lactic Acid 2.1 H (0.4-2.0) mmol/L Calcium (8.5-10.1) mg/dL Magnesium (1.5-2.5) mg/dL Total Bilirubin (0.2-1.0) mg/dL AST (15-37) U/L ALT (12-78) U/L Alkaline Phosphatase (45-117) U/L Troponin I (0.02-0.05) ng/mL B-Natriuretic Peptide 160 H (0-100) pg/mL Total Protein (6.4-8.2) g/dL Albumin (3.4-5.0) g/dL Imaging Data Attestation: I personally reviewed and interpreted this imaging study as follows : Radiologist's impression: Chest X-Ray 08/04/18 13:34 CONCLUSION: There is diffuse bilateral chronic interstitial lung disease without significant change compared to the prior exam. Discharge Plan Discharge Disposition Patient Disposition: 30 Still Patient Discharge Details Diagnosis: Acute respiratory failure with hypoxia Physicians Team ED Provider: Brinda Zhong Primary Care Provider: Stephon Linder Rxs /Orders / Referrals /Forms Prescriptions: No Action carvedilol 25 mg Tablet 25 mg PO BID RF: 0 atorvastatin 10 mg Tablet 10 mg PO DAILY RF: 0 tamsulosin [Flomax] 0.4 mg Capsule 0.4 mg PO DAILY RF: 0 gabapentin 300 mg Capsule 300 mg PO TID RF: 0 aspirin 81 mg Tablet,Chewable 81 mg PO DAILY RF: 0 apixaban [Eliquis] 2.5 mg Tablet 2.5 mg PO BID RF: 0 glimepiride 1 mg Tablet 1 mg PO QAM RF: 0 amlodipine 10 mg Tablet 10 mg PO DAILY RF: 0 niacin 500 mg Tablet 500 mg PO DAILY RF: 0 cholecalciferol (vitamin D3) [Vitamin D3] 2,000 unit Capsule 1 tab PO DAILY RF: 0 Status ED Status: Admitted Patient
--- NOTE | 2018-08-04 14:08 | XR ---
EXAM DATE: 08/04/2018 1:34 PM EDT AGE/SEX: 78 years / Male INDICATIONS: Severe shortness of breath. CLINICAL DATA: This is the patient's initial encounter. Patient reports that signs and symptoms have been present for 2 days and indicates a pain score of 5/10. MEDICAL/SURGICAL HISTORY: Hypercholesterolemia. Carcinoma, bladder. Hypertension. COPD per p t. None. COMPARISON: [facility], CHEST SINGLE AP, 04/16/2018. . FINDINGS: There continues to be chronic bilateral interstitial lung disease. The overall pattern of the interst itial lung disease is stable compared to the prior exam. No focal or new areas of parenchymal consoli dation are demonstrated. The heart size is stable. No significant pleural effusions. The bony structu res are stable. No evidence of pneumothorax. CONCLUSION: There is diffuse bilateral chronic interstitial lung disease without significant change compared to t prior exam. Electronically signed by: Omari Garduno MD 08/04/2018 2:07 PM EDT
[2018-08-04 14:19] LABS: Baso # (Auto) 0.2 th/mm3 (0.0-0.2); Baso % (Auto) 1.9 % (0.0-2.0); Eos # (Auto) 0.3 th/mm3 (0.0-0.4); Eos % (Auto) 2.9 % (0.0-4.0); Hematocrit 43.2 % (39.0-51.0); Hemoglobin 14.8 gm/dL (13.0-17.0); Lymph # (Auto) 2.1 th/mm3 (1.0-4.8); Lymph % (Auto) 19.5 % (9.0-44.0); Mean Corpuscular HGB Conc 34.3 % (32.0-36.0); Mean Corpuscular Hemoglobin 29.3 pg (27.0-34.0); Mean Corpuscular Volume 85.5 fL (80.0-100.0); Mean Platelet Volume 8.3 fL (7.0-11.0); Mono # (Auto) 0.8 th/mm3 (0.0-0.9); Mono % (Auto) 7.5 % (0.0-8.0); Neut # (Auto) 7.3 th/mm3 (1.8-7.7); Neut % (Auto) 68.2 % (16.0-70.0); Platelet Count 260 th/mm3 (150-450); Red Blood Count 5.05 mil/mm3 (4.50-5.90); Red Cell Distribution Width 13.6 % (11.6-17.2); White Blood Count 10.7 th/mm3 (4.0-11.0)
[2018-08-04 14:29] LABS: Chloride 105 meq/L (98-107); Sodium 139 meq/L (136-145)
[2018-08-04 14:31] LABS: Activated Partial Thrombo Time 31.7 sec (24.3-30.1); INR 1.1 Ratio; Prothrombin Time 11.2 sec (9.8-11.6)
[2018-08-04 14:34] LABS: Albumin 3.3 g/dL (3.4-5.0); Anion Gap 11 meq/L (5-15); Carbon Dioxide 22.7 meq/L (21.0-32.0); Glucose,Random 171 mg/dL (74-106); Magnesium 2.1 mg/dL (1.5-2.5)
[2018-08-04 14:35] LABS: Blood Urea Nitrogen 26 mg/dL (7-18)
[2018-08-04 14:37] LABS: Alanine Aminotransferase 14 U/L (12-78); Aspartate Aminotransferase 27 U/L (15-37)
[2018-08-04 14:38] LABS: Glomerular Filtration Rate 34 mL/min (>89)
[2018-08-04 14:39] LABS: Total Protein 7.7 g/dL (6.4-8.2)
[2018-08-04 14:41] LABS: Alkaline Phosphatase 93 U/L (45-117)
[2018-08-04 14:43] LABS: ABG Base Excess -0.2 mmol/L (-2-2); ABG PCO2 33 mmHg (38-42); ABG PO2 52 mmHg (61-120)
[2018-08-04 15:09] LABS: Creatine Kinase 63 U/L (39-308)
[2018-08-04] MEDS ORDERED: Potassium Phosphate 500 MG Soluble Tablet PO PRN ×2 (16:06)
[2018-08-04] MEDS ORDERED: Sodium Phosphate Inj 30 MMOL in Sodium Chlor 0.9% Inj 250 ML IV.SIG PRN (16:06)
[2018-08-04] MEDS ORDERED: Bisacodyl 10 MG Supp RECTAL PRN (16:06)
[2018-08-04] MEDS ORDERED: Potassium Chloride 25 MEQ Effervescent Tablet PO PRN (16:06)
[2018-08-04] MEDS ORDERED: Magnesium Sulfate Inj 2 GM in Sodium Chlor 0.9% Inj 96 ML IV.SIG PRN (16:06)
[2018-08-04] MEDS ORDERED: Potassium Chlor 20 mEq Premix 20 MEQ/100 ML PIGGYBACK IV.SIG PRN ×2 (16:06)
[2018-08-04] MEDS ORDERED: Potassium Phosphate Inj 30 MMOL in Sodium Chlor 0.9% Inj 250 ML IV.SIG PRN (16:06)
[2018-08-04] MEDS ORDERED: Acetaminophen 325 MG Tablet PO PRN (16:06)
[2018-08-04] MEDS ORDERED: Potassium Chlor 40 mEq Premix 40 MEQ/100 ML PIGGYBACK IV.SIG PRN ×2 (16:06)
[2018-08-04] MEDS ORDERED: Magnesium Oxide 400 MG Tablet PO PRN (16:06)
[2018-08-04] MEDS ORDERED: Magnesium Sulfate Inj 4 GM in Sodium Chlor 0.9% Inj 92 ML IV.SIG PRN (16:06)
[2018-08-04] MEDS ORDERED: Dextrose 50% in Water 50 ML Vial IV.PUSH PRN (17:54)
[2018-08-04] MEDS ORDERED: Gabapentin 300 MG Capsule PO SCH (18:00)
--- NOTE | 2018-08-04 18:13 | P.HPCC ---
History of Present Illness Service: Critical care Primary Care Physician: Stephon Linder MD Chief Complaint: Shortness of breath History of Present Illness: 78yM with history of oxygen-dependent COPD, PE, and interstitial lung disease presenting with shortness of breath. The patient states that he uses 3L O2 nasal cannula around the clock at home, but over the past week or so has noticed that he gets short of breath with minimal exertion, sometimes associated with substernal chest "aching" (non-radiating, lasting minutes and resolving with rest, mild intensity). He admits to chronic cough productive of thin sputum but denies fever, chills, palpitations, nausea or vomiting. He has a history of PE "years ago" for which he takes Eliquis; no recent travel, immobilization, or leg swelling/ calf pain. Respiratory history- follows with Dr. Sorto of pulmonology, uses 3L O2 around the clock, has a home nebulizer, reports that he is only on steroids "when I'm in the hospital", only intubations in the past have been for procedures. Patient was admitted for similar symptoms in March of this year, had a negative CTA at that time, improved with bipap/ nebs/ steroids and discharged home. Family history- unclear, patient is not sure what his mother of but says that his father had brain CA. The patient is retired from [employer], no known occupational exposures, 20+ pack-year smoking history, denies alcohol or illicit drug use. - Diagnosis (1) COPD exacerbation (2) Acute respiratory failure with hypoxia Inpatient Certification: I certify that the inpatient services were ordered in accordance with Medicare regulations governing the order. This includes certification that hospital inpatient services are reasonable and necessary and in the case of services not specified as inpatient-only under 42 CFR 419.22(n), that they are appropriately provided as inpatient services in accordance to with the 2-midnight benchmark under 43 CFR 412.3(e) Estimated Total Length of Stay (Days): 3 Plans for Post Hospital Care: Home Review of Systems All other systems reviewed negative except as stated in HPI Constitutional: Denies fever(s) Ears, Nose, Mouth, and Throat: Denies nasal congestion Cardiovascular: Reports shortness of breath with activity Respiratory: Reports cough Gastrointestinal: Denies nausea, Denies vomiting Genitourinary: Denies painful urination Comments: Denies leg swelling Neurologic: Denies confusion PMFSH - History History Provided By: Patient (copd per patient) - Medical History Medical History: Medical History (Last Reviewed 08/04/18 @ 18:02 by Netta Jurado DO) Cancer of bladder High cholesterol Hypertension Diabetes History of deep vein thrombophlebitis of lower extremity History of pulmonary embolism - Social History I have reviewed the patient's Social History: Yes - Tobacco History Tobacco Use In Past 30 Days: No Smoking Status: Former smoker - Alcohol History How Often Do You Have a Drink Containing Alcohol: Never - Substance Use History Substance History: No History of Abuse - Travel History Recent Travel in the [place] Within the Last 8 Weeks: No Recent Travel Out of the Country Within the Last 8 Weeks: No - Immunization History Tetanus Immunization: Unsure Medications and Allergies Active Medications: Active Medications Acetaminophen (Tylenol) 650 mg PO Q6H PRN PRN Reason: PAIN 1-10 AND/OR FEVER >101F Al Hydroxide/Mg Hydroxide (Milk Of Magnesia Liq) 30 ml PO Q12H PRN PRN Reason: Mild Constipation Albuterol (Albuterol Neb (Prn)) 2.5 mg NEB Q2HR NEB PRN PRN Reason: SHORTNESS OF BREATH/WHEEZING Albuterol (Duoneb Neb (Sampson)) 1 ampul NEB Q4HR NEB SAMPSON Albuterol (Duoneb Neb (Prn)) 1 ampul NEB Q2HR NEB PRN PRN Reason: WHEEZING Amlodipine Besylate (Norvasc) 10 mg PO DAILY [facility] Apixaban (Eliquis) 2.5 mg PO BID [facility] Aspirin (Aspirin Chew) 81 mg PO DAILY [facility] Atorvastatin Calcium (Lipitor) 10 mg PO DAILY [place] Bisacodyl (Dulcolax Supp) 10 mg RECTAL DAILY PRN PRN Reason: SEVERE CONSITIPATION Carvedilol (Coreg) 25 mg PO BID [facility] Chlorhexidine Gluconate (Chlorhexidine 2% Cloth) 3 pack TOPICAL DAILY@0400 SAM[place] Stop: 08/10/18 03:59 Chlorhexidine Gluconate (Chlorhexidine 2% Cloth) 3 pack TOPICAL DAILY@0400 PRN PRN Reason: Extra cloth needed Stop: 08/10/18 03:59 Dextrose (D50w Vial) 50 ml IV.PUSH UNSCH PRN PRN Reason: PER HYPOGLYCEMIA PROTOCOL Famotidine (Pepcid) 20 mg PO BID SAM[place] Famotidine (Pepcid Pf Inj) 20 mg IV.PUSH Q12HR SAM[place] Gabapentin (Neurontin) 300 mg PO BID [place] Magnesium Sulfate 4 gm/ Sodium (Chloride) 100 mls @ 50 mls/hr IV.SIG UNSCH PRN PRN Reason: For Magnesium 0.9 - 1.1 mg/dL Magnesium Sulfate 2 gm/ Sodium (Chloride) 100 mls @ 50 mls/hr IV.SIG UNSCH PRN PRN Reason: For Magnesium 1.2 - 1.6 mg/dL Potassium Chloride (Kcl 40 Meq Premix Inj) 40 meq in 100 mls @ 25 mls/hr IV.SIG Q2H PRN PRN Reason: For Potassium 2.8 - 3.2 mEq/L Potassium Chloride (Kcl 20 Meq Premix Inj) 20 meq in 100 mls @ 50 mls/hr IV.SIG Q2H PRN PRN Reason: For Potassium 3.3 - 3.5 mEq/L Potassium Chloride (Kcl 40 Meq Premix Inj) 40 meq in 100 mls @ 25 mls/hr IV.SIG UNSCH PRN PRN Reason: For Potassium 3.3 - 3.5 mEq/L Potassium Chloride (Kcl 20 Meq Premix Inj) 20 meq in 100 mls @ 50 mls/hr IV.SIG Q2H PRN PRN Reason: For Potassium 2.8 - 3.2 mEq/L Potassium Phosphate 30 mmol/ (Sodium Chloride) 260 mls @ 42 mls/hr IV.SIG UNSCH PRN PRN Reason: SEE LABEL COMMENTS Sodium Phosphate 30 mmol/ (Sodium Chloride) 260 mls @ 42 mls/hr IV.SIG UNSCH PRN PRN Reason: For Phosphorus < 2.5 mg/dL Lactulose (Lactulose Liq) 30 ml PO DAILY PRN PRN Reason: SEVERE CONSITIPATION Magnesium Oxide (Mag-Ox) 800 mg PO UNSCH PRN PRN Reason: For Magnesium 1.2 - 1.6 mg/dL Methylprednisolone Sodium Succinate (Solumedrol Inj) 40 mg IV.PUSH Q6H [place] Ondansetron HCl (Zofran Inj) 4 mg IV.PUSH Q6H PRN PRN Reason: NAUSEA OR VOMITING Potassium Bicarb/Potassium Chloride (K-Lyte Cl Eff) 50 meq PO UNSCH PRN PRN Reason: For Potassium 3.3 - 3.5 mEq/L Potassium Phosphate (K-Phos Original) 2,000 mg PO Q4H PRN PRN Reason: Phosphorus Less Than 2.5 mg/dL Potassium Phosphate (K-Phos Original) 2,000 mg PO UNSCH PRN PRN Reason: SEE LABEL COMMENTS Senna/Docusate Sodium (Ingrid-Colace) 1 tab PO BID [facility] Sennosides (Senokot) 17.2 mg PO Q12H PRN PRN Reason: Moderate Constipation Sodium Chloride (Ns Flush) 2 ml IV.FLUSH BID [place] Sodium Chloride (Ns Flush) 2 ml IV.FLUSH PRN PRN PRN Reason: FLUSH AFTER USING IV ACCESS Tamsulosin HCl (Flomax) 0.4 mg PO DAILY [facility] Allergies Allergy/AdvReac Type Severity Reaction Status Date / Time No Known Allergies Allergy Unknown Uncoded 04/16/18 10:48 Home Medications Medication Instructions Recorded Confirmed Type amlodipine 10 mg PO DAILY 08/04/18 08/04/18 History apixaban [Eliquis] 2.5 mg PO BID 08/04/18 08/04/18 History aspirin 81 mg PO DAILY 08/04/18 08/04/18 History atorvastatin 10 mg PO DAILY 08/04/18 08/04/18 History carvedilol 25 mg PO BID 08/04/18 08/04/18 History cholecalciferol (vitamin D3) 1 tab PO DAILY 08/04/18 08/04/18 History [Vitamin D3] gabapentin 300 mg PO TID 08/04/18 08/04/18 History glimepiride 1 mg PO QAM 08/04/18 08/04/18 History niacin 500 mg PO DAILY 08/04/18 08/04/18 History tamsulosin [Flomax] 0.4 mg PO DAILY 08/04/18 08/04/18 History Results - Labs CBC & Chem 7: 08/04/18 13:45 08/04/18 13:45 Labs: Short CBC 08/04/18 Range/Units 13:45 WBC 10.7 (4.0-11.0) th/mm3 Hgb 14.8 (13.0-17.0) gm/dL Hct 43.2 (39.0-51.0) % Plt Count 260 (150-450) th/mm3 [facility] 08/04/18 13:45 Sodium 139 Potassium Chloride 105 Carbon Dioxide 22.7 BUN 26 H Creatinine 1.90 H Calcium 9.0 Cardiac Enzymes 08/04/18 Range/Units 13:45 Total Creatine Kinase 63 (39-308) U/L Troponin I Less than 0.02 L (0.02-0.05) ng/mL Liver Function 08/04/18 Range/Units 13:45 Total Bilirubin 0.8 (0.2-1.0) mg/dL AST 27 (15-37) U/L ALT 14 (12-78) U/L Alkaline Phosphatase 93 (45-117) U/L Albumin 3.3 L (3.4-5.0) g/dL - Imaging Impressions Chest X-Ray 08/04/18 13:34 CONCLUSION: There is diffuse bilateral chronic interstitial lung disease without significant change compared to the prior exam. Exam Vital signs: Vital Signs 08/04/18 13:50 08/04/18 13:53 08/04/18 14:01 Temperature 97.7 F Pulse Rate 74 81 Respiratory Rate 20 24 Blood Pressure 168/69 H Pulse Oximetry 96 67 L 95 08/04/18 14:06 08/04/18 14:46 08/04/18 15:47 Temperature Pulse Rate 80 69 Respiratory Rate 18 Blood Pressure 122/71 Pulse Oximetry 63 L 96 94 L 08/04/18 16:26 08/04/18 16:59 Temperature Pulse Rate 72 Respiratory Rate 18 Blood Pressure 157/80 H Pulse Oximetry 93 L 97 Intake & Output 08/03/18 08/04/18 08/04/18 18:59 06:59 18:59 Weight 76.2 kg Narrative: GEN: Well-nourished, well-developed, no acute distress HEENT: NCAT, PERRL NECK: Trachea midline, no JVD CARDIO: Regular rate and rhythm, no murmurs PULM: Speaking in complete sentences, mildly increased work of breathing but no distress, on bipap with large air leak around real, diminished breath sounds at bases bilaterally, no crackles or wheezing, O2 sats high 90s ABD/GI: Soft, non-tender, non-distended SKIN: Warm, no rashes or lesions EXT/MSK: No lower extremity edema or calf tenderness NEURO: A&Ox3, conversational, no focal neuro deficits PSYCH: Appropriate affect Caprini VTE Risk Assessment Caprini VTE Risk Assessment: Moderate/High Risk (score >= 2) (Patient is already anticoagulated with Eliquis) Caprini Risk Assessment Model: Point Value = 1 Point Value = 2 Point Value = 3 Point Value = 5 Age 41-60 Minor surgery BMI > 25 kg/m2 Swollen legs Varicose veins or History of unexplained or recurrent spontaneous Oral contraceptives or hormone replacement Sepsis (< 1 month) Serious lung disease, including pneumonia (< 1 month) Abnormal pulmonary function Acute myocardial infarction Congestive heart failure (< 1 month) History of inflammatory bowel disease Medical patient at bed rest Age 61-74 Arthroscopic surgery Major open surgery (> 45 min) Laparoscopic surgery (> 45 min) Malignancy Confined to bed (> 72 hours) Immobilizing plaster cast Central venous access Age >= 75 History of VTE Family history of VTE Factor V Leiden Prothrombin [id number] Lupus anticoagulant Anticardiolipin antibodies Elevated serum homocysteine Heparin-induced thrombocytopenia Other congenital or acquired thrombophilia Stroke (< 1 month) Elective arthroplasty Hip, pelvis, or leg fracture Acute spinal cord injury (< 1 month) Prophylaxis Regimen: Total Risk Factor Score Risk Level Prophylaxis Regimen 0-1 Low Early ambulation 2 Moderate Order ONE of the following: *Sequential Compression Device (SCD) *Heparin 5000 units SQ BID 3-4 Higher Order ONE of the following medications: *Heparin 5000 units SQ TID *Enoxaparin/Lovenox 40 mg SQ daily (WT < 150 kg, CrCl > 30 mL/min) *Enoxaparin/Lovenox 30 mg SQ daily (WT < 150 kg, CrCl > 10-29 mL/min) *Enoxaparin/Lovenox 30 mg SQ BID (WT < 150 kg, CrCl > 30 mL/min) AND/OR *Sequential Compression Device (SCD) 5 or more Highest Order ONE of the following medications: *Heparin 5000 units SQ TID (Preferred with Epidurals) *Enoxaparin/Lovenox 40 mg SQ daily (WT < 150 kg, CrCl > 30 mL/min) *Enoxaparin/Lovenox 30 mg SQ daily (WT < 150 kg, CrCl > 10-29 mL/min) *Enoxaparin/Lovenox 30 mg SQ BID (WT < 150 kg, CrCl > 30 mL/min) AND *Sequential Compression Device (SCD) Assessment and Plan - Problem List (1) COPD exacerbation Code(s): Mary44.1 - Chronic obstructive pulmonary disease with (acute) exacerbation Status: Acute (2) Acute respiratory failure with hypoxia Code(s): J96.01 - Acute respiratory failure with hypoxia Status: Acute - Assessment and Plan Plan: 78yM with history of COPD, PE, interstitial lung disease, now presenting with acute hypoxic respiratory failure requiring bipap NEURO: Continue home gabapentin Maintain sleep/wake cycle CARDIO: Continue home amlodipine, carvedilol, niacin/ statin, aspirin/ Eliquis Initial troponin negative, trend 2D echo (see below) PULM: Trial patient off bipap for now, will rest on bipap overnight Scheduled nebs and steroids Encourage deep breathing/ coughing, incentive spirometry Pulm consult requested Patient has a history of PE with chronic kidney disease (creat 1.9, was the same on previous admission)--- he had a CTA chest in March of this year, which showed no PE, and he is on Eliquis as an outpatient. His O2 sats and respiratory status have improved over the past several hours with nebs/ steroids / NIPPV. I would like to avoid repeated contrast loads in the setting of chronic kidney disease, will obtain 2D echo tomorrow, and if no right heart strain is noted and he continues to improve, I do not think that he needs any further workup for PE at that point. The patient understands and agrees with this plan. F/E/N: Ok for diabetic diet while off bipap No need for maintenance IVF at this point ICU electrolyte protocol : Continue flomax, no indication for [place] OVERALL: This patient requires intensive care overnight for airway monitoring and bipap support. He can likely be transferred to hospitalist service tomorrow morning as he is already tolerating face mask O2. Counseling/ Coordination of Care: Total critical care time: 40 minutes. This includes examining the patient, gathering history from someone other than the patient (i.e., chart review), discussing the patient's care with other providers, managing the patient's non- invasive ventilation settings, ordering and interpreting radiology studies, ordering and interpreting laboratory studies, and documentation. All critical care time is separate and exclusive of procedures, teaching, and patient/ family updates. Code Status: Full H&P: Quality - VTE Contraindication No VTE Prophylaxis: Treatment not indicated (Patient is already anticoagulated on Eliquis) Documentation of Mechanical Device: Intermittent pneumatic compression stockings
[2018-08-04] MEDS: Famotidine PF Inj 20 MG/2 ML Vial IV.PUSH SCH (21:01)
[2018-08-04] MEDS: Senna/Docusate Sodium 8.6/50 MG Tablet PO SCH (21:01)
[2018-08-04] MEDS: Gabapentin 300 MG Capsule PO SCH (21:02)
[2018-08-04] MEDS: amLODIPine 10 MG Tablet PO SCH (21:02)
[2018-08-04] MEDS: Carvedilol 12.5 MG Tablet PO SCH (21:02)
[2018-08-04] MEDS: MethylPREDNISolone Sod Succinate Inj 40 MG/ML Vial IV.PUSH SCH (21:04)
[2018-08-04] MEDS: Famotidine 20 MG Tablet PO SCH (21:04)
[2018-08-04] MEDS: Insulin NovoLIN Regular Correctional Sugar Inj SQ SCH (21:14)
[2018-08-05] MEDS: MethylPREDNISolone Sod Succinate Inj 40 MG/ML Vial IV.PUSH SCH ×4 (02:27→20:56)
[2018-08-05] MEDS ORDERED: Chlorhexidine Gluconate 2% 1 Pack (2 Cloths) TOPICAL PRN (04:00)
[2018-08-05 04:46] LABS: Baso % (Auto) 0.3 % (0.0-2.0); Eos % (Auto) 0.1 % (0.0-4.0); Hematocrit 39.6 % (39.0-51.0); Hemoglobin 13.2 gm/dL (13.0-17.0); Lymph # (Auto) 0.9 th/mm3 (1.0-4.8); Lymph % (Auto) 11.9 % (9.0-44.0); Mean Corpuscular HGB Conc 33.3 % (32.0-36.0); Mean Corpuscular Hemoglobin 29.4 pg (27.0-34.0); Mean Corpuscular Volume 88.2 fL (80.0-100.0); Mean Platelet Volume 7.6 fL (7.0-11.0); Mono # (Auto) 0.1 th/mm3 (0.0-0.9); Mono % (Auto) 1.3 % (0.0-8.0); Neut # (Auto) 6.8 th/mm3 (1.8-7.7); Neut % (Auto) 86.4 % (16.0-70.0); Platelet Count 277 th/mm3 (150-450); Red Blood Count 4.49 mil/mm3 (4.50-5.90); Red Cell Distribution Width 12.8 % (11.6-17.2); White Blood Count 7.8 th/mm3 (4.0-11.0)
[2018-08-05 04:56] LABS: Potassium 4.3 meq/L (3.5-5.1)
[2018-08-05 05:00] LABS: Calcium 8.9 mg/dL (8.5-10.1); Carbon Dioxide 22.7 meq/L (21.0-32.0); Magnesium 2.2 mg/dL (1.5-2.5)
[2018-08-05] MEDS: Chlorhexidine Gluconate 2% 1 Pack (2 Cloths) TOPICAL SCH (05:28)
[2018-08-05] MEDS: Insulin NovoLIN Regular Correctional Sugar Inj SQ SCH ×4 (08:55→21:02)
[2018-08-05] MEDS: amLODIPine 10 MG Tablet PO SCH (08:55)
[2018-08-05] MEDS: Gabapentin 300 MG Capsule PO SCH ×2 (08:56→20:54)
[2018-08-05] MEDS: Famotidine 20 MG Tablet PO SCH ×2 (08:56→20:57)
[2018-08-05] MEDS: Carvedilol 12.5 MG Tablet PO SCH ×2 (08:57→20:55)
[2018-08-05] MEDS: Senna/Docusate Sodium 8.6/50 MG Tablet PO SCH ×2 (09:01→20:54)
[2018-08-05] MEDS: Famotidine PF Inj 20 MG/2 ML Vial IV.PUSH SCH ×2 (09:02→23:22)
--- NOTE | 2018-08-05 15:57 | MB ---
cc: Alexey Blackburn MD, V J MD DATE: 08/05/2018 REASON FOR CONSULTATION: COPD exacerbation. HISTORY OF PRESENT ILLNESS: Mr. Malik is a 78-year-old male with a known history of COPD of a severe degree, chronic respiratory failure, on home oxygen therapy, and chronic pulmonary fibrosis. The patient was admitted with increasing shortness of breath, cough with expectoration of clear mucoid whitish secretion. No fever, no chills, no hemoptysis, no TB no industrial exposure. PAST MEDICAL HISTORY: 1. COPD. 2. Pulmonary fibrosis. 3. Bladder cancer. 4. Hypertension. 5. Hyperlipidemia. 6. Diabetes mellitus. 7. History of DVT and PE . SOCIAL HISTORY: Remote smoking history: Does not smoke at present. Does not drink any alcohol. No TB, no industrial exposure. Does not use drugs. FAMILY HISTORY: Noncontributory. MEDICATIONS: Include: 1. Albuterol. 2. Ipratropium nebulization. 3. Amlodipine. 4. Eliquis. 5. Aspirin. 6. Dulcolax. 7. Coreg. 8. Presently on intravenous Solu-Medrol. REVIEW OF SYSTEMS: A 12-point review of systems as per HPI and past history, otherwise negative. PHYSICAL EXAMINATION: GENERAL: The patient is alert. VITAL SIGNS: Temperature is 98 degrees Fahrenheit, pulse 80, respirations 22, blood pressure 160/70, oxygen saturation 96% on 3 liters oxygen nasal cannula. HEENT: Unremarkable. Eyes without icterus. NECK: Without adenopathy or thyroid enlargement. CHEST: Scattered rhonchi bilaterally. CARDIAC: PMI not appreciated. S1, S2 audible. No murmur. No rub. ABDOMEN: Lax, audible bowel sounds. PSYCHIATRIC: Trace edema. LABORATORY DATA: White count 10,000, hemoglobin 14, hematocrit 43, platelets are 260,000. Sodium 139, potassium 3.4, BUN 26, creatinine 1.0. Chest x-ray with diffuse interstitial change, no acute infiltrate. IMPRESSION: 1. Chronic obstructive pulmonary disease, in exacerbation. 2. Acute on chronic respiratory failure. 3. Pulmonary fibrosis. 4. Diabetes mellitus. 5. Hypertension. 6. Hyperlipidemia. 7. Deep venous thrombosis and pulmonary embolus by history. PLAN: The patient will be maintained on oxygen therapy as needed, bronchodilators continued, steroids tapered as tolerated. We will follow the patient's course along with you and, depending on patient's progress proceed further. I do thank you for asking me to partake in Mr. Malik's care. Alexey Blackburn MD WWW/regan , 03:33 PM , 03:43 PM
--- NOTE | 2018-08-05 16:08 | P.PN ---
Subjective Interval history: 78-year-old male with known history of chronic hypoxic respiratory failure with oxygen dependency, chronic obstructive pulmonary disease, pulmonary fibrosis who presented the hospital because of shortness of breath, dyspnea. Patient was found to have acute hypoxic respiratory failure and was admitted to the hospital with critical care management. Patient was started on BiPAP, Solu-Medrol, duo nebs with improvement. Patient has not been weaned down to 6 L nasal cannula. Critical care team has consulted hospitalist to assume medical management. Upon evaluating the patient he is still having shortness of breath. He does indicate that he is improving. Will need to continue to wean oxygen until back down to his baseline of 3 L. Vital signs appear to be stable. Patient remains afebrile. Physical Exam Vital signs: Vital Signs 08/04/18 16:26 08/04/18 16:59 08/04/18 17:00 Temperature Pulse Rate 72 76 Respiratory Rate 18 28 H Blood Pressure 157/80 H 152/73 H Pulse Oximetry 93 L 97 93 L 08/04/18 18:00 08/04/18 18:36 08/04/18 19:00 Temperature Pulse Rate 82 80 74 Respiratory Rate 19 26 H Blood Pressure 152/73 H 145/76 H Pulse Oximetry 83 L 96 96 08/04/18 19:30 08/04/18 20:00 08/04/18 21:00 Temperature Pulse Rate 77 78 72 Respiratory Rate 18 15 17 Blood Pressure 134/69 121/65 Pulse Oximetry 94 L 95 95 08/04/18 22:00 08/04/18 23:00 08/04/18 23:30 Temperature Pulse Rate 72 66 Respiratory Rate 20 18 Blood Pressure 134/72 138/69 Pulse Oximetry 96 95 96 08/05/18 00:00 08/05/18 01:00 08/05/18 02:00 Temperature 97.9 F Pulse Rate 66 64 64 Respiratory Rate 17 20 19 Blood Pressure 131/68 119/66 125/71 Pulse Oximetry 98 97 98 08/05/18 02:15 08/05/18 03:00 08/05/18 03:15 Temperature Pulse Rate 62 62 Respiratory Rate 23 21 Blood Pressure 127/72 Pulse Oximetry 97 96 08/05/18 03:35 08/05/18 04:00 08/05/18 05:00 Temperature 98.4 F Pulse Rate 62 64 Respiratory Rate 16 27 H Blood Pressure 135/70 135/70 Pulse Oximetry 96 94 L 96 08/05/18 06:00 08/05/18 07:00 08/05/18 08:00 Temperature 97.7 F Pulse Rate 64 74 76 Respiratory Rate 20 7 L 20 Blood Pressure 140/74 155/80 H 117/71 Pulse Oximetry 96 94 L 89 L 08/05/18 09:00 08/05/18 10:00 08/05/18 11:00 Temperature Pulse Rate 80 80 76 Respiratory Rate 18 17 34 H Blood Pressure 139/69 133/65 134/67 Pulse Oximetry 89 L 92 L 88 L 08/05/18 12:00 08/05/18 13:00 08/05/18 14:00 Temperature 97.7 F Pulse Rate 78 76 68 Respiratory Rate 33 H 19 16 Blood Pressure 128/82 126/66 120/64 Pulse Oximetry 87 L 92 L 94 L 08/05/18 15:06 Temperature Pulse Rate 75 Respiratory Rate 24 Blood Pressure Pulse Oximetry Intake & Output 08/04/18 08/05/18 08/05/18 18:59 06:59 18:59 Output Total 200 / 200 Balance -200 / -200 Weight 71.4 kg 73.1 kg Output: Urine 200 / 200 Other: Post Void Residual 600 Date of Last Bowel Movement 08/23/18 08/23/18 08/03/18 Weight On Admission 71.4 kg Narrative: GENERAL: Well-developed, well-nourished, in no acute distress. alert and orientated HEENT: Head is normocephalic without any lesions or masses noted. Facial features are symmetric. Eyes: Extraocular muscles are intact. Conjunctivae were clear. NECK: Supple without any masses. Trachea midline no deviation. No JVD, CARDIAC: Regular rhythm, regular rate. S1/S2 are heard. No murmurs gallops or rubs. LUNGS: Diminished breath sounds noted bilaterally. No wheeze, rhonchi or rales. No use of accessory muscles on inspiration or expiration. ABDOMEN: Soft, nontender. Nondistended. Bowel sounds heard in all 4 quadrants. No organomegaly or masses. Negative rebound, negative guarding EXTREMITIES: No edema, pulses are equal bilaterally. No cyanosis or clubbing NEUROLOGY: Mood and affect appear appropriate. Cranial nerves II through XII grossly intact. Moving all extremities, speech is clear Results - Labs CBC & Chem 7: 10/10/18 04:30 08/05/18 04:30 Laboratory Results - last 24 hr 08/04/18 08/04/18 08/04/18 16:56 18:00 18:20 CBC w Diff WBC RBC Hgb Hct MCV MCH MCHC RDW Plt Count MPV Neut % (Auto) Lymph % (Auto) [place] % (Auto) Eos % (Auto) Baso % (Auto) Neut # (Auto) Lymph # (Auto) [place] # (Auto) Eos # (Auto) Baso # (Auto) WBC Differential Differential Comment Sodium Potassium Chloride Carbon Dioxide Anion Gap BUN Creatinine Estimated GFR POC Glucose 146 H Random Glucose Calcium Magnesium Troponin I Less than 0.02 L Nasal Screen MRSA (PCR) Not detected 08/04/18 08/04/18 08/05/18 20:07 21:11 04:30 CBC w Diff Auto diff final WBC 7.8 RBC 4.49 L Hgb 13.2 Hct 39.6 MCV 88.2 MCH 29.4 MCHC 33.3 RDW 12.8 Plt Count 277 MPV 7.6 Neut % (Auto) 86.4 H Lymph % (Auto) 11.9 [place] % (Auto) 1.3 Eos % (Auto) 0.1 Baso % (Auto) 0.3 Neut # (Auto) 6.8 Lymph # (Auto) 0.9 L [place] # (Auto) 0.1 Eos # (Auto) 0.0 Baso # (Auto) 0.0 WBC Differential . Differential Comment . Sodium Potassium Chloride Carbon Dioxide Anion Gap BUN Creatinine Estimated GFR POC Glucose 276 H Random Glucose Calcium Magnesium Troponin I Less than 0.02 L Nasal Screen MRSA (PCR) 08/05/18 08/05/18 08/05/18 04:30 07:43 11:50 CBC w Diff WBC RBC Hgb Hct MCV MCH MCHC RDW Plt Count MPV Neut % (Auto) Lymph % (Auto) [place] % (Auto) Eos % (Auto) Baso % (Auto) Neut # (Auto) Lymph # (Auto) [place] # (Auto) Eos # (Auto) Baso # (Auto) WBC Differential Differential Comment Sodium 140 Potassium 4.3 Chloride 106 Carbon Dioxide 22.7 Anion Gap 11 BUN 35 H Creatinine 1.80 H Estimated GFR 37 L POC Glucose 179 H 241 H Random Glucose 184 H Calcium 8.9 Magnesium 2.2 Troponin I Nasal Screen MRSA (PCR) Microbiology 08/04/18 13:49 Blood - Peripheral Aerobic Blood Culture - Preliminary No growth in 1 day 08/04/18 13:49 Blood - Peripheral Anaerobic Blood Culture - Preliminary No growth in 1 day 08/04/18 13:55 Blood - Peripheral Aerobic Blood Culture - Preliminary No growth in 1 day 08/04/18 13:55 Blood - Peripheral Anaerobic Blood Culture - Preliminary No growth in 1 day 08/04/18 14:40 Nasal Wash Influenza Types A,B Antigen - Final Negative for FLU A and B antigen Infection due to influenza A or B cannot be ruled out since the antigen present in the sample may be below the detection limit of the test. Assessment and Plan - Plan Acute on chronic hypoxic respiratory failure -Likely secondary to chronic obstructive pulmonary disease exacerbation, patient does have chronic hypoxic respiratory failure and is usually maintained on 3 L nasal cannula at home. -Continue to wean O2 supplementation maintain O2 sats greater than 88% -Continue Solu-Medrol 40 mg every 6 hours -Continue duo nebs every 4 hours and every 2 hours as needed -Pulmonology consulted for continued management History of hypertension, hyperlipidemia, DVT, pulmonary emboli -Home medications have been continued Diabetes -Accu-Cheks with sliding scale insulin DVT prevention -Patient is on Eliquis
--- NOTE | 2018-08-05 18:31 | ECHRPT ---
Indication: Shortness of Breath CONCLUSIONS Limited echo for RV strain The left ventricular systolic function is normal with an estimated ejection fraction in the range of 55-60%. In limited views the RV appears normal size and function. BP: / HR: Rhythm: MEASUREMENTS (Male / Female) Normal Values Technical Quality:Fair 2D ECHO LV Diastolic Diameter PLAX 4.9 cm 4.2 - 5.9 / 3.9 - 5.3 cm LV Systolic Diameter PLAX 3.1 cm IVS Diastolic Thickness 1.1 cm 0.6 - 1.0 / 0.6 - 0.9 cm LVPW Diastolic Thickness 1.1 cm 0.6 - 1.0 / 0.6 - 0.9 cm LV Relative Wall Thickness 0.4 RV Internal Dim ED PLAX 2.9 cm Aortic Root Diameter 3.2 cm LA Systolic Diameter LX 4.0 cm 3.0 - 4.0 / 2.7 - 3.8 cm FINDINGS LEFT VENTRICLE Normal left ventricular size. Wall thickness is measured at the upper limits of normal. The left ventricular systolic function is normal with an estimated ejection fraction in the range of 55-60%. RIGHT VENTRICLE In limited views the RV appears normal size and function LEFT ATRIUM The left atrial size is upper limits of normal. RIGHT ATRIUM The right atrium is not well visualized. AORTA The aortic root and proximal ascending aorta are not well visualized. MITRAL VALVE Grossly normal mitral valve. AORTIC VALVE Trileaflet aortic valve. TRICUSPID VALVE The tricuspid valve is not well visualized. PULMONARY VALVE The pulmonary valve is not well visualized. VESSELS The inferior vena cava is normal in size. PERICARDIUM No pericardial effusion. Tyree Ambriz DO (Electronically Signed) Final Date:05 August 2018 18:30
--- NOTE | 2018-08-05 18:35 | ECG ---
Date Performed: 08/04/2018 Time Performed: 13:53:58 PTAGE: 78 years EKG: Sinus rhythm NORMAL ECG PREVIOUS TRACING : 04/16/2018 22.10 DOCTOR: Agustín Snowden Interpretating Date/Time 08/05/2018 18:34:56
[2018-08-06] MEDS: MethylPREDNISolone Sod Succinate Inj 40 MG/ML Vial IV.PUSH SCH ×4 (02:35→21:15)
[2018-08-06 05:10] LABS: Baso % (Auto) 0.1 % (0.0-2.0); Eos % (Auto) 0.1 % (0.0-4.0); Hematocrit 37.2 % (39.0-51.0); Hemoglobin 12.8 gm/dL (13.0-17.0); Lymph # (Auto) 0.9 th/mm3 (1.0-4.8); Lymph % (Auto) 5.9 % (9.0-44.0); Mean Corpuscular HGB Conc 34.4 % (32.0-36.0); Mean Corpuscular Hemoglobin 29.5 pg (27.0-34.0); Mean Corpuscular Volume 85.6 fL (80.0-100.0); Mean Platelet Volume 8.3 fL (7.0-11.0); Mono # (Auto) 0.5 th/mm3 (0.0-0.9); Mono % (Auto) 3.5 % (0.0-8.0); Neut # (Auto) 13.8 th/mm3 (1.8-7.7); Neut % (Auto) 90.4 % (16.0-70.0); Platelet Count 281 th/mm3 (150-450); Red Blood Count 4.34 mil/mm3 (4.50-5.90); Red Cell Distribution Width 13.3 % (11.6-17.2); White Blood Count 15.2 th/mm3 (4.0-11.0)
[2018-08-06] MEDS: Chlorhexidine Gluconate 2% 1 Pack (2 Cloths) TOPICAL SCH (05:21)
[2018-08-06 05:32] LABS: Potassium 3.8 meq/L (3.5-5.1)
[2018-08-06 05:35] LABS: Carbon Dioxide 23.1 meq/L (21.0-32.0); Magnesium 2.3 mg/dL (1.5-2.5)
[2018-08-06] MEDS: amLODIPine 10 MG Tablet PO SCH (09:31)
[2018-08-06] MEDS: Famotidine 20 MG Tablet PO SCH ×2 (09:32→21:22)
[2018-08-06] MEDS: Senna/Docusate Sodium 8.6/50 MG Tablet PO SCH ×2 (09:34→21:17)
[2018-08-06] MEDS: Carvedilol 12.5 MG Tablet PO SCH ×2 (09:35→21:15)
[2018-08-06] MEDS: Gabapentin 300 MG Capsule PO SCH ×2 (09:38→21:16)
[2018-08-06] MEDS: Famotidine PF Inj 20 MG/2 ML Vial IV.PUSH SCH ×2 (09:39→21:17)
--- NOTE | 2018-08-06 09:47 | P.PN ---
Subjective Interval history: 78-year-old male who is seen and examined today for follow-up on hypoxic respiratory failure. Patient still requiring increased O2 demand. Had used BiPAP last evening. Patient is on 6 L nasal cannula. Patient feels if he may be improving. Vital signs appear to be stable. Patient remains afebrile. Physical Exam Vital signs: Vital Signs 08/05/18 10:00 08/05/18 11:00 08/05/18 12:00 Temperature 97.7 F Pulse Rate 80 76 78 Respiratory Rate 17 34 H 33 H Blood Pressure 133/65 134/67 128/82 Pulse Oximetry 92 L 88 L 87 L 08/05/18 13:00 08/05/18 14:00 08/05/18 15:00 Temperature Pulse Rate 76 68 62 Respiratory Rate 19 16 14 Blood Pressure 126/66 120/64 117/64 Pulse Oximetry 92 L 94 L 95 08/05/18 15:06 08/05/18 16:00 08/05/18 16:44 Temperature 97.7 F Pulse Rate 75 74 73 Respiratory Rate 24 20 20 Blood Pressure 127/60 Pulse Oximetry 94 L 08/05/18 17:00 08/05/18 18:00 08/05/18 19:00 Temperature 97.7 F Pulse Rate 76 76 76 Respiratory Rate 16 20 17 Blood Pressure 126/68 118/63 133/68 Pulse Oximetry 92 L 89 L 92 L 08/05/18 19:48 08/05/18 20:00 08/05/18 21:00 Temperature Pulse Rate 80 74 78 Respiratory Rate 20 22 20 Blood Pressure 139/61 140/70 Pulse Oximetry 92 L 92 L 88 L 08/05/18 22:00 08/05/18 23:00 08/06/18 00:00 Temperature Pulse Rate 76 70 70 Respiratory Rate 12 15 15 Blood Pressure 135/67 136/65 131/66 Pulse Oximetry 92 L 92 L 90 L 08/06/18 01:00 08/06/18 02:00 08/06/18 02:47 Temperature Pulse Rate 70 72 74 Respiratory Rate 12 15 15 Blood Pressure 127/74 137/68 Pulse Oximetry 95 93 L 08/06/18 03:00 08/06/18 03:25 08/06/18 04:00 Temperature Pulse Rate 76 68 Respiratory Rate 21 25 H Blood Pressure 137/69 133/72 Pulse Oximetry 95 95 97 08/06/18 05:10 08/06/18 06:00 08/06/18 07:26 Temperature 97.4 F L Pulse Rate 62 66 Respiratory Rate 20 12 Blood Pressure 129/69 129/66 Pulse Oximetry 95 95 93 L 08/06/18 08:00 Temperature 97.6 F Pulse Rate 74 Respiratory Rate 22 Blood Pressure 133/73 Pulse Oximetry 93 L Intake & Output 08/05/18 08/06/18 08/06/18 18:59 06:59 18:59 Intake Total 720 / 720 240 / 240 240 / 240 Output Total 1000 / 1000 600 / 600 Balance -280 / -280 -360 / -360 240 / 240 Intake: Oral 720 / 720 240 / 240 240 / 240 Output: Urine 1000 / 1000 600 / 600 Other: Date of Last Bowel Movement 08/03/18 08/03/18 Narrative: GENERAL: Well-developed, well-nourished, in no acute distress. alert and orientated HEENT: Head is normocephalic without any lesions or masses noted. Facial features are symmetric. Eyes: Extraocular muscles are intact. Conjunctivae were clear. NECK: Supple without any masses. Trachea midline no deviation. No JVD, CARDIAC: Regular rhythm, regular rate. S1/S2 are heard. No murmurs gallops or rubs. LUNGS: Diminished breath sounds noted bilaterally. No wheeze, rhonchi or rales. No use of accessory muscles on inspiration or expiration. ABDOMEN: Soft, nontender. Nondistended. Bowel sounds heard in all 4 quadrants. No organomegaly or masses. Negative rebound, negative guarding EXTREMITIES: No edema, pulses are equal bilaterally. No cyanosis or clubbing NEUROLOGY: Mood and affect appear appropriate. Cranial nerves II through XII grossly intact. Moving all extremities, speech is clear Results - Labs CBC & Chem 7: 08/06/18 04:45 08/06/18 04:45 Laboratory Results - last 24 hr 08/05/18 08/05/18 08/05/18 11:50 16:46 16:50 CBC w Diff WBC RBC Hgb Hct MCV MCH MCHC RDW Plt Count MPV Neut % (Auto) Lymph % (Auto) [place] % (Auto) Eos % (Auto) Baso % (Auto) Neut # (Auto) Lymph # (Auto) [place] # (Auto) Eos # (Auto) Baso # (Auto) WBC Differential Differential Comment Sodium Potassium Chloride Carbon Dioxide Anion Gap BUN Creatinine Estimated GFR POC Glucose 241 H 194 H Random Glucose Calcium Magnesium Procalcitonin 0.04 08/05/18 08/06/18 08/06/18 20:59 04:45 04:45 CBC w Diff Auto diff final WBC 15.2 H RBC 4.34 L Hgb 12.8 L Hct 37.2 L MCV 85.6 MCH 29.5 MCHC 34.4 RDW 13.3 Plt Count 281 MPV 8.3 Neut % (Auto) 90.4 H Lymph % (Auto) 5.9 L [place] % (Auto) 3.5 Eos % (Auto) 0.1 Baso % (Auto) 0.1 Neut # (Auto) 13.8 H Lymph # (Auto) 0.9 L [place] # (Auto) 0.5 Eos # (Auto) 0.0 Baso # (Auto) 0.0 WBC Differential . Differential Comment . Sodium 138 Potassium 3.8 Chloride 103 Carbon Dioxide 23.1 Anion Gap 12 BUN 40 H Creatinine 1.70 H Estimated GFR 39 L POC Glucose 257 H Random Glucose 183 H Calcium 9.0 Magnesium 2.3 Procalcitonin 08/06/18 07:55 CBC w Diff WBC RBC Hgb Hct MCV MCH MCHC RDW Plt Count MPV Neut % (Auto) Lymph % (Auto) [place] % (Auto) Eos % (Auto) Baso % (Auto) Neut # (Auto) Lymph # (Auto) [place] # (Auto) Eos # (Auto) Baso # (Auto) WBC Differential Differential Comment Sodium Potassium Chloride Carbon Dioxide Anion Gap BUN Creatinine Estimated GFR POC Glucose 182 H Random Glucose Calcium Magnesium Procalcitonin Microbiology 08/04/18 13:49 Blood - Peripheral Aerobic Blood Culture - Preliminary No growth in 1 day 08/04/18 13:49 Blood - Peripheral Anaerobic Blood Culture - Preliminary No growth in 1 day 08/04/18 13:55 Blood - Peripheral Aerobic Blood Culture - Preliminary No growth in 1 day 08/04/18 13:55 Blood - Peripheral Anaerobic Blood Culture - Preliminary No growth in 1 day Assessment and Plan - Plan Acute on chronic hypoxic respiratory failure -Likely secondary to chronic obstructive pulmonary disease exacerbation, patient does have chronic hypoxic respiratory failure and is usually maintained on 3 L nasal cannula at home. -Continue to wean O2 supplementation maintain O2 sats greater than 88% -Continue Solu-Medrol 40 mg every 6 hours -Continue duo nebs every 4 hours and every 2 hours as needed -Pulmonology consulted for continued management History of hypertension, hyperlipidemia, DVT, pulmonary emboli -Home medications have been continued Diabetes -Accu-Cheks with sliding scale insulin DVT prevention -Patient is on Eliquis
[2018-08-06] MEDS: Insulin NovoLIN Regular Correctional Sugar Inj SQ SCH ×4 (12:22→21:42)
--- NOTE | 2018-08-06 15:02 | P.PN ---
Subjective Interval history: alert nad c/o constipation Physical Exam Vital signs: Vital Signs 08/05/18 15:06 08/05/18 16:00 08/05/18 16:44 Temperature 97.7 F Pulse Rate 75 74 73 Respiratory Rate 24 20 20 Blood Pressure 127/60 Pulse Oximetry 94 L 08/05/18 17:00 08/05/18 18:00 08/05/18 19:00 Temperature 97.7 F Pulse Rate 76 76 76 Respiratory Rate 16 20 17 Blood Pressure 126/68 118/63 133/68 Pulse Oximetry 92 L 89 L 92 L 08/05/18 19:48 08/05/18 20:00 08/05/18 21:00 Temperature Pulse Rate 80 74 78 Respiratory Rate 20 22 20 Blood Pressure 139/61 140/70 Pulse Oximetry 92 L 92 L 88 L 08/05/18 22:00 08/05/18 23:00 08/06/18 00:00 Temperature Pulse Rate 76 70 70 Respiratory Rate 12 15 15 Blood Pressure 135/67 136/65 131/66 Pulse Oximetry 92 L 92 L 90 L 08/06/18 01:00 08/06/18 02:00 08/06/18 02:47 Temperature Pulse Rate 70 72 74 Respiratory Rate 12 15 15 Blood Pressure 127/74 137/68 Pulse Oximetry 95 93 L 08/06/18 03:00 08/06/18 03:25 08/06/18 04:00 Temperature Pulse Rate 76 68 Respiratory Rate 21 25 H Blood Pressure 137/69 133/72 Pulse Oximetry 95 95 97 08/06/18 05:10 08/06/18 06:00 08/06/18 07:00 Temperature 97.4 F L Pulse Rate 62 66 64 Respiratory Rate 20 12 12 Blood Pressure 129/69 129/66 123/69 Pulse Oximetry 95 95 96 08/06/18 07:26 08/06/18 07:54 08/06/18 08:00 Temperature 97.6 F Pulse Rate 72 76 Respiratory Rate 17 30 H Blood Pressure 133/73 138/72 Pulse Oximetry 93 L 92 L 90 L 08/06/18 09:00 08/06/18 10:00 08/06/18 11:00 Temperature Pulse Rate 74 78 66 Respiratory Rate 31 H 29 H 13 Blood Pressure 129/73 123/71 121/65 Pulse Oximetry 96 84 L 93 L 08/06/18 11:53 08/06/18 12:00 08/06/18 13:00 Temperature Pulse Rate 73 72 68 Respiratory Rate 18 24 19 Blood Pressure 134/68 138/70 Pulse Oximetry 95 96 08/06/18 14:00 Temperature Pulse Rate 70 Respiratory Rate 21 Blood Pressure 128/67 Pulse Oximetry 93 L Intake & Output 08/05/18 08/06/18 08/06/18 18:59 06:59 18:59 Intake Total 720 / 720 240 / 240 240 / 240 Output Total 1000 / 1000 600 / 600 Balance -280 / -280 -360 / -360 240 / 240 Intake: Oral 720 / 720 240 / 240 240 / 240 Output: Urine 1000 / 1000 600 / 600 Other: Date of Last Bowel Movement 08/03/18 08/03/18 08/03/18 Narrative: GENERAL: Well-developed, well-nourished, in no acute distress. alert and orientated HEENT: Head is normocephalic without any lesions or masses noted. Facial features are symmetric. Eyes: Extraocular muscles are intact. Conjunctivae were clear. NECK: Supple without any masses. Trachea midline no deviation. No JVD, CARDIAC: Regular rhythm, regular rate. S1/S2 are heard. No murmurs gallops or rubs. LUNGS: Diminished breath sounds noted bilaterally. No wheeze, rhonchi or rales. No use of accessory muscles on inspiration or expiration. ABDOMEN: Soft, nontender. Nondistended. Bowel sounds heard in all 4 quadrants. No organomegaly or masses. Negative rebound, negative guarding EXTREMITIES: No edema, pulses are equal bilaterally. No cyanosis or clubbing NEUROLOGY: Mood and affect appear appropriate. Cranial nerves II through XII grossly intact. Moving all extremities, speech is clear Results - Labs CBC & Chem 7: 08/06/18 04:45 08/06/18 04:45 Laboratory Results - last 24 hr 08/05/18 08/05/18 08/05/18 16:46 16:50 20:59 CBC w Diff WBC RBC Hgb Hct MCV MCH MCHC RDW Plt Count MPV Neut % (Auto) Lymph % (Auto) [place] % (Auto) Eos % (Auto) Baso % (Auto) Neut # (Auto) Lymph # (Auto) [place] # (Auto) Eos # (Auto) Baso # (Auto) WBC Differential Differential Comment Sodium Potassium Chloride Carbon Dioxide Anion Gap BUN Creatinine Estimated GFR POC Glucose 194 H 257 H Random Glucose Calcium Magnesium Procalcitonin 0.04 08/06/18 08/06/18 08/06/18 04:45 04:45 07:55 CBC w Diff Auto diff final WBC 15.2 H RBC 4.34 L Hgb 12.8 L Hct 37.2 L MCV 85.6 MCH 29.5 MCHC 34.4 RDW 13.3 Plt Count 281 MPV 8.3 Neut % (Auto) 90.4 H Lymph % (Auto) 5.9 L [place] % (Auto) 3.5 Eos % (Auto) 0.1 Baso % (Auto) 0.1 Neut # (Auto) 13.8 H Lymph # (Auto) 0.9 L [place] # (Auto) 0.5 Eos # (Auto) 0.0 Baso # (Auto) 0.0 WBC Differential . Differential Comment . Sodium 138 Potassium 3.8 Chloride 103 Carbon Dioxide 23.1 Anion Gap 12 BUN 40 H Creatinine 1.70 H Estimated GFR 39 L POC Glucose 182 H Random Glucose 183 H Calcium 9.0 Magnesium 2.3 Procalcitonin 08/06/18 12:18 CBC w Diff WBC RBC Hgb Hct MCV MCH MCHC RDW Plt Count MPV Neut % (Auto) Lymph % (Auto) [place] % (Auto) Eos % (Auto) Baso % (Auto) Neut # (Auto) Lymph # (Auto) [place] # (Auto) Eos # (Auto) Baso # (Auto) WBC Differential Differential Comment Sodium Potassium Chloride Carbon Dioxide Anion Gap BUN Creatinine Estimated GFR POC Glucose 272 H Random Glucose Calcium Magnesium Procalcitonin Microbiology 08/04/18 13:49 Blood - Peripheral Aerobic Blood Culture - Preliminary No growth in 2 days 08/04/18 13:49 Blood - Peripheral Anaerobic Blood Culture - Preliminary No growth in 2 days 08/04/18 13:55 Blood - Peripheral Aerobic Blood Culture - Preliminary No growth in 2 days 08/04/18 13:55 Blood - Peripheral Anaerobic Blood Culture - Preliminary No growth in 2 days Assessment and Plan - Plan COPD EXACERBATION RESP FAILURE PLAN O2 BRONCHODILATOR THERAPY INCREASE ACTIVITY MAY GO TO MED FLOOR
[2018-08-07] MEDS: MethylPREDNISolone Sod Succinate Inj 40 MG/ML Vial IV.PUSH SCH ×4 (02:04→21:13)
[2018-08-07] MEDS: Chlorhexidine Gluconate 2% 1 Pack (2 Cloths) TOPICAL SCH (04:14)
[2018-08-07] MEDS: Insulin NovoLIN Regular Correctional Sugar Inj SQ SCH ×4 (07:47→21:30)
[2018-08-07] MEDS: Gabapentin 300 MG Capsule PO SCH ×2 (08:28→21:13)
[2018-08-07] MEDS: Carvedilol 12.5 MG Tablet PO SCH ×2 (08:29→21:14)
[2018-08-07] MEDS: amLODIPine 10 MG Tablet PO SCH (08:31)
[2018-08-07] MEDS: Senna/Docusate Sodium 8.6/50 MG Tablet PO SCH ×2 (08:32→23:15)
[2018-08-07] MEDS: Famotidine 20 MG Tablet PO SCH ×2 (10:08→21:14)
[2018-08-07] MEDS: Famotidine PF Inj 20 MG/2 ML Vial IV.PUSH SCH ×2 (10:11→23:13)
--- NOTE | 2018-08-07 10:29 | P.PN ---
Subjective Interval history: 78-year-old male who is seen and examined today for follow-up on hypoxic respiratory failure. Patient pretty much status quo. No significant change. Patient was weaned down to 4 L yesterday. However did require BiPAP last night. Vital signs remained stable. Patient remains afebrile Physical Exam Vital signs: Vital Signs 08/06/18 11:00 08/06/18 11:53 08/06/18 12:00 Temperature Pulse Rate 66 73 72 Respiratory Rate 13 18 24 Blood Pressure 121/65 134/68 Pulse Oximetry 93 L 95 08/06/18 13:00 08/06/18 14:00 08/06/18 15:00 Temperature Pulse Rate 68 70 68 Respiratory Rate 19 21 14 Blood Pressure 138/70 128/67 123/67 Pulse Oximetry 96 93 L 91 L 08/06/18 15:27 08/06/18 16:00 08/06/18 17:00 Temperature Pulse Rate 73 68 72 Respiratory Rate 20 9 L 23 Blood Pressure 137/68 119/67 Pulse Oximetry 95 89 L 08/06/18 18:00 08/06/18 19:00 08/06/18 19:17 Temperature 97.3 F L Pulse Rate 68 76 76 Respiratory Rate 18 24 16 Blood Pressure 141/71 H 146/71 H Pulse Oximetry 93 L 89 L 93 L 08/06/18 20:00 08/06/18 21:00 08/06/18 22:00 Temperature Pulse Rate 74 76 74 Respiratory Rate 11 L 12 17 Blood Pressure 138/69 143/72 H 120/68 Pulse Oximetry 94 L 94 L 91 L 08/06/18 23:00 08/06/18 23:14 08/06/18 23:30 Temperature Pulse Rate 72 75 Respiratory Rate 18 16 Blood Pressure 126/66 Pulse Oximetry 91 L 94 L 08/07/18 00:00 08/07/18 01:00 08/07/18 01:30 Temperature Pulse Rate 68 64 Respiratory Rate 14 13 Blood Pressure 134/70 141/69 H Pulse Oximetry 95 96 92 L 08/07/18 02:00 08/07/18 03:00 08/07/18 04:00 Temperature Pulse Rate 70 76 80 Respiratory Rate 16 18 18 Blood Pressure 132/71 124/68 143/72 H Pulse Oximetry 90 L 91 L 90 L 08/07/18 05:00 08/07/18 06:00 08/07/18 07:00 Temperature Pulse Rate 74 74 74 Respiratory Rate 16 9 L 13 Blood Pressure 125/68 130/71 140/70 Pulse Oximetry 91 L 94 L 93 L 08/07/18 07:21 08/07/18 07:35 08/07/18 08:00 Temperature 98.7 F Pulse Rate 78 78 78 Respiratory Rate 20 17 21 Blood Pressure 143/66 H 132/75 Pulse Oximetry 90 L 92 L 93 L 08/07/18 09:00 Temperature Pulse Rate 80 Respiratory Rate 23 Blood Pressure 141/76 H Pulse Oximetry 91 L Intake & Output 08/06/18 08/07/18 08/07/18 18:59 06:59 18:59 Intake Total 480 / 480 400 / 400 240 / 240 Output Total 600 / 600 1800 / 1800 Balance -120 / -120 -1400 / -1400 240 / 240 Weight 72.2 kg Intake: Oral 480 / 480 400 / 400 240 / 240 Output: Urine 600 / 600 1800 / 1800 Other: Post Void Residual 600 # Voids 6 Date of Last Bowel Movement 08/03/18 08/03/18 Narrative: GENERAL: Well-developed, well-nourished, in no acute distress. alert and orientated HEENT: Head is normocephalic without any lesions or masses noted. Facial features are symmetric. Eyes: Extraocular muscles are intact. Conjunctivae were clear. NECK: Supple without any masses. Trachea midline no deviation. No JVD, CARDIAC: Regular rhythm, regular rate. S1/S2 are heard. No murmurs gallops or rubs. LUNGS: Diminished breath sounds noted bilaterally. No wheeze, rhonchi or rales. No use of accessory muscles on inspiration or expiration. ABDOMEN: Soft, nontender. Nondistended. Bowel sounds heard in all 4 quadrants. No organomegaly or masses. Negative rebound, negative guarding EXTREMITIES: No edema, pulses are equal bilaterally. No cyanosis or clubbing NEUROLOGY: Mood and affect appear appropriate. Cranial nerves II through XII grossly intact. Moving all extremities, speech is clear Results - Labs CBC & Chem 7: 08/06/18 04:45 08/06/18 04:45 Laboratory Results - last 24 hr 08/06/18 08/06/18 08/06/18 12:18 17:05 21:14 POC Glucose 272 H 197 H 289 H 08/07/18 07:39 POC Glucose 191 H Microbiology 08/04/18 13:49 Blood - Peripheral Aerobic Blood Culture - Preliminary No growth in 2 days 08/04/18 13:49 Blood - Peripheral Anaerobic Blood Culture - Preliminary No growth in 2 days 08/04/18 13:55 Blood - Peripheral Aerobic Blood Culture - Preliminary No growth in 2 days 08/04/18 13:55 Blood - Peripheral Anaerobic Blood Culture - Preliminary No growth in 2 days Assessment and Plan - Plan Acute on chronic hypoxic respiratory failure -Likely secondary to chronic obstructive pulmonary disease exacerbation, patient does have chronic hypoxic respiratory failure and is usually maintained on 3 L nasal cannula at home. -Continue to wean O2 supplementation maintain O2 sats greater than 88% -Continue Solu-Medrol 40 mg every 6 hours -Continue duo nebs every 4 hours and every 2 hours as needed -Pulmonology consulted for continued management History of hypertension, hyperlipidemia, DVT, pulmonary emboli -Home medications have been continued Diabetes -Accu-Cheks with sliding scale insulin DVT prevention -Patient is on Eliquis
[2018-08-08] MEDS: MethylPREDNISolone Sod Succinate Inj 40 MG/ML Vial IV.PUSH SCH ×3 (02:01→12:23)
[2018-08-08] MEDS: Chlorhexidine Gluconate 2% 1 Pack (2 Cloths) TOPICAL SCH (03:13)
[2018-08-08] MEDS: Insulin NovoLIN Regular Correctional Sugar Inj SQ SCH ×2 (08:12→12:24)
[2018-08-08] MEDS: Carvedilol 12.5 MG Tablet PO SCH (08:16)
[2018-08-08] MEDS: amLODIPine 10 MG Tablet PO SCH (08:18)
[2018-08-08] MEDS: Gabapentin 300 MG Capsule PO SCH (08:18)
[2018-08-08] MEDS: Famotidine 20 MG Tablet PO SCH (08:21)
--- NOTE | 2018-08-08 10:15 | P.DCO ---
- Diagnosis (1) Acute respiratory failure with hypoxia Status: Acute (2) COPD exacerbation Status: Acute - Physical Therapy Order: Evaluate and treat, Improve ambulation, Strength and gait training - Home Health Nursing Order: Medical education, Signs/symptoms of disease process, Nursing assessment with vital signs - Case Management Consult No - Certification I have seen patient Denilson Malik on 08/08/18. My clinical findings support the need for the requested home health care services because: Patient has SOB I certify that my clinical findings support that this patient is homebound because: Hx COPD - exertion dyspnea/weakness
[2018-08-08] MEDS: Senna/Docusate Sodium 8.6/50 MG Tablet PO SCH (10:35)
[2018-08-08] MEDS: Famotidine PF Inj 20 MG/2 ML Vial IV.PUSH SCH (10:35)
[2018-08-08 12:11] VITALS: BP 117/64; PULSE 69; RESP 21; TEMP 97.7; O2SAT 91
--- NOTE | 2018-08-08 12:35 | P.DS ---
Date of admission: 08/04/18 15:07 Primary care physician: Stephon Linder MD Attending physician on discharge: Gerald Kitchen Anticipated date of discharge: 08/08/18 Brief History from admission: 78yM with history of oxygen-dependent COPD, PE, and interstitial lung disease presenting with shortness of breath. The patient states that he uses 3L O2 nasal cannula around the clock at home, but over the past week or so has noticed that he gets short of breath with minimal exertion, sometimes associated with substernal chest "aching" (non-radiating, lasting minutes and resolving with rest, mild intensity). He admits to chronic cough productive of thin sputum but denies fever, chills, palpitations, nausea or vomiting. He has a history of PE "years ago" for which he takes Eliquis; no recent travel, immobilization, or leg swelling/ calf pain. Respiratory history- follows with Dr. Sorto of pulmonology, uses 3L O2 around the clock, has a home nebulizer, reports that he is only on steroids "when I'm in the hospital", only intubations in the past have been for procedures. Patient was admitted for similar symptoms in March of this year, had a negative CTA at that time, improved with bipap/ nebs/ steroids and discharged home. Family history- unclear, patient is not sure what his mother of but says that his father had brain CA. The patient is retired from [employer], no known occupational exposures, 20+ pack-year smoking history, denies alcohol or illicit drug use. DS: Diagnosis - Discharge Diagnosis (1) Acute and chronic respiratory failure with hypoxia Status: Acute (2) COPD exacerbation Status: Acute DS: Medications - Discharge Medications Prescriptions: prednisone 5 mg PO DIRECTED #42 tab DS: Summary Hospital Course: Acute on chronic hypoxic respiratory failure -Likely secondary to chronic obstructive pulmonary disease exacerbation, patient does have chronic hypoxic respiratory failure and is usually maintained on 3 L nasal cannula at home. -Patient was successfully weaned off of BiPAP and now down to 4 L nasal cannula -Patient counseled to continue using 4 L nasal cannula at home -Discontinue Solu-Medrol 40 mg every 6 hours, start prednisone in tapering dose in outpatient setting -Continue duo nebs every 4 hours and every 2 hours as needed, patient states that he does have a nebulizer and medication at home -Pulmonology consulted during his stay in the hospital patient will follow up with his primary tube balancer Dr. Ochoa History of hypertension, hyperlipidemia, DVT, pulmonary emboli -Home medications have been continued Diabetes -Home medication will be continued - Time Spent with Patient Total time spent providing and/or coordinating discharge services: Greater than 30 minutes - Quality: VTE Contraindication No VTE Prophylaxis: Treatment not indicated (Patient is already anticoagulated on Eliquis) Documentation of Mechanical Device: Intermittent pneumatic compression stockings Deep Vein Thrombosis/Pulmonary Embolism Present on Admission: No Exam Vital signs: Vital Signs 08/07/18 13:00 08/07/18 13:12 08/07/18 14:00 Temperature Pulse Rate 76 76 68 Respiratory Rate 23 20 14 Blood Pressure 124/61 127/68 Pulse Oximetry 89 L 91 L 08/07/18 15:00 08/07/18 15:18 08/07/18 16:00 Temperature 98.1 F Pulse Rate 72 76 70 Respiratory Rate 20 16 20 Blood Pressure 114/66 131/63 Pulse Oximetry 94 L 92 L 08/07/18 16:16 08/07/18 17:00 08/07/18 18:00 Temperature Pulse Rate 70 72 72 Respiratory Rate 23 23 15 Blood Pressure 131/65 134/70 131/63 Pulse Oximetry 92 L 92 L 89 L 08/07/18 19:00 08/07/18 19:22 08/07/18 20:00 Temperature 96.6 F L Pulse Rate 82 79 72 Respiratory Rate 20 14 Blood Pressure 140/68 Pulse Oximetry 93 L 95 08/07/18 21:00 08/07/18 22:00 08/07/18 23:00 Temperature Pulse Rate 68 70 72 Respiratory Rate Blood Pressure Pulse Oximetry 08/07/18 23:15 08/08/18 00:00 08/08/18 00:42 Temperature 97.5 F L Pulse Rate 73 77 78 Respiratory Rate 23 20 Blood Pressure 126/63 Pulse Oximetry 93 L 08/08/18 02:00 08/08/18 03:00 08/08/18 03:30 Temperature Pulse Rate 68 70 71 Respiratory Rate 16 Blood Pressure Pulse Oximetry 08/08/18 04:00 08/08/18 05:00 08/08/18 06:00 Temperature 98.8 F Pulse Rate 75 75 72 Respiratory Rate 20 Blood Pressure 143/73 H Pulse Oximetry 90 L 08/08/18 07:00 08/08/18 07:50 08/08/18 08:00 Temperature 97.5 F L Pulse Rate 70 82 74 Respiratory Rate 14 22 15 Blood Pressure 133/67 129/72 Pulse Oximetry 90 L 92 L 93 L 08/08/18 08:15 08/08/18 09:00 08/08/18 10:00 Temperature Pulse Rate 72 76 Respiratory Rate 14 15 16 Blood Pressure 141/72 H 131/58 L Pulse Oximetry 92 L 94 L 08/08/18 11:00 08/08/18 12:00 Temperature 97.7 F Pulse Rate 72 69 Respiratory Rate 27 H 21 Blood Pressure 138/83 117/64 Pulse Oximetry 92 L 91 L Intake & Output 08/07/18 08/08/18 08/08/18 18:59 06:59 18:59 Intake Total 480 / 480 360 / 360 Output Total 600 / 600 400 / 400 1460 / 1460 Balance -120 / -120 -40 / -40 -1460 / -1460 Weight 73.6 kg Intake: Oral 480 / 480 360 / 360 Output: Urine 600 / 600 400 / 400 1460 / 1460 Other: # Voids 2 Date of Last Bowel Movement 08/07/18 08/08/18 08/07/18 # Bowel Movements 1 Narrative: GENERAL: Well-developed, well-nourished, in no acute distress. alert and orientated HEENT: Head is normocephalic without any lesions or masses noted. Facial features are symmetric. Eyes: Extraocular muscles are intact. Conjunctivae were clear. NECK: Supple without any masses. Trachea midline no deviation. No JVD, CARDIAC: Regular rhythm, regular rate. S1/S2 are heard. No murmurs gallops or rubs. LUNGS: Diminished breath sounds noted bilaterally. No wheeze, rhonchi or rales. No use of accessory muscles on inspiration or expiration. ABDOMEN: Soft, nontender. Nondistended. Bowel sounds heard in all 4 quadrants. No organomegaly or masses. Negative rebound, negative guarding EXTREMITIES: No edema, pulses are equal bilaterally. No cyanosis or clubbing NEUROLOGY: Mood and affect appear appropriate. Cranial nerves II through XII grossly intact. Moving all extremities, speech is clear Results Procedures completed during hospitalization: None Labs on day of discharge: Labs from last 24 hours 08/08/18 08/08/18 08/07/18 12:00 07:51 21:12 POC Glucose 253 H 183 H 249 H 08/07/18 16:20 POC Glucose 296 H Preliminary micro results at discharge 08/04/18 13:49 Aerobic Blood Culture - Preliminary Blood - Peripheral No growth in 4 days Anaerobic Blood Culture - Preliminary No growth in 4 days 08/04/18 13:55 Aerobic Blood Culture - Preliminary Blood - Peripheral No growth in 4 days Anaerobic Blood Culture - Preliminary No growth in 4 days - Impressions ITS Impressions Chest X-Ray 08/04/18 13:34 CONCLUSION: There is diffuse bilateral chronic interstitial lung disease without significant change compared to the prior exam. Discharge Plan - Discharge Disposition Patient Disposition: W/Home Health Service - Discharge Condition Condition: Stable - Discharge Order Discharge Orders: Discharge Order (Routine); Ordered 08/08/18 Ordered By: Avila Bethea - Discharge Details Anticipated Discharge Date: 08/08/18 Discharge Comment: Discharge home once arrangements made by case management for home health care - Physicians Team Primary Care Provider: Stephon Linder Attending Provider: Gerald Kitchen Other Providers: Alexey Blackburn MD
== END 2018-08-08 12:50 | disposition home health service (06) ==
LOC: PHED 13:27 → PHEDA 15:07 → PHICU 16:53
PROVIDERS: ADMIT Hospitalist; ATTEND Hospitalist

== ENCOUNTER 2018-08-13 16:45 | Inpatient (IN) ==
[2018-08-13] MEDS ORDERED: Dexamethasone Inj 20 MG/5 ML Vial IV.PUSH ONE (16:50)
[2018-08-13 17:14] LABS: VBG Base Excess 3.4 mmol/L (-2-2); VBG Blood Gas Oxygen Content 6.8 Vol % (9.0-17.0); VBG PCO2 38 mmHG (44-48); VBG PH 7.47 (7.360-7.400); VBG PO2 23 mmHG (35-40)
[2018-08-13 17:15] LABS: Baso # (Auto) 0.1 th/mm3 (0.0-0.2); Baso % (Auto) 0.6 % (0.0-2.0); Eos % (Auto) 0.2 % (0.0-4.0); Hematocrit 40.2 % (39.0-51.0); Hemoglobin 13.4 gm/dL (13.0-17.0); Lymph # (Auto) 0.9 th/mm3 (1.0-4.8); Lymph % (Auto) 4.4 % (9.0-44.0); Mean Corpuscular HGB Conc 33.5 % (32.0-36.0); Mean Corpuscular Hemoglobin 28.8 pg (27.0-34.0); Mono # (Auto) 1.3 th/mm3 (0.0-0.9); Mono % (Auto) 6.2 % (0.0-8.0); Neut # (Auto) 18.4 th/mm3 (1.8-7.7); Neut % (Auto) 88.6 % (16.0-70.0); Platelet Count 223 th/mm3 (150-450); Red Blood Count 4.67 mil/mm3 (4.50-5.90); Red Cell Distribution Width 13.4 % (11.6-17.2); White Blood Count 20.7 th/mm3 (4.0-11.0)
[2018-08-13 17:22] LABS: Chloride 99 meq/L (98-107); Potassium 4.4 meq/L (3.5-5.1); Sodium 134 meq/L (136-145)
--- NOTE | 2018-08-13 17:24 | XR ---
EXAM DATE: 08/13/2018 4:50 PM EDT AGE/SEX: 78 years / Male INDICATIONS: Short of breath CLINICAL DATA: This is the patient's initial encounter. Patient reports that signs and symptoms have been present for 1 day and indicates a pain score of 0/10. MEDICAL/SURGICAL HISTORY: . Hypercholesterolemia. Carcinoma, bladder. Hypertension. COPD. No ne. COMPARISON: [facility], CHEST 1V SINGLE AP, 08/04/2018. . FINDINGS: The patient has widespread diffuse interstitial lung disease with some increasing consolidation in th e left upper lobe. There appears to be some bleb formation and superimposed pneumonia in the left upp er lobe. Heart and mediastinum unremarkable. Bones are unremarkable. There is no significant pleural effusion CONCLUSION: Diffuse widespread interstitial lung disease with bleb formation in the left upper lobe. Clearly wors e airspace disease in the left upper lobe since the . . Electronically signed by: Agustín Chadwick MD 08/13/2018 5:22 PM EDT
[2018-08-13 17:25] LABS: Calcium 8.4 mg/dL (8.5-10.1)
[2018-08-13 17:26] LABS: Albumin 2.1 g/dL (3.4-5.0); Anion Gap 9 meq/L (5-15); Blood Urea Nitrogen 36 mg/dL (7-18); Glucose,Random 274 mg/dL (74-106)
[2018-08-13 17:29] LABS: Alanine Aminotransferase 15 U/L (12-78); Aspartate Aminotransferase 10 U/L (15-37); Glomerular Filtration Rate 32 mL/min (>89)
[2018-08-13 17:30] LABS: Total Protein 6.3 g/dL (6.4-8.2)
[2018-08-13 17:31] LABS: Alkaline Phosphatase 72 U/L (45-117)
[2018-08-13 17:34] LABS: Activated Partial Thrombo Time 36.2 sec (24.3-30.1); INR 1.1 Ratio; Prothrombin Time 11.4 sec (9.8-11.6)
--- NOTE | 2018-08-13 18:16 | ED ---
HPI General Chief complaint: Respiratory Symptoms Stated complaint: SOB Time Seen by Provider: 08/13/18 16:49 Source: patient and EMS Mode of arrival: EMS Limitations: no limitations History of Present Illness HPI narrative: Patient is a 78-year-old male with history of chronic lung disease, who comes in due to shortness of breath. Patient normally wears 4 L of oxygen via nasal cannula at home. Per EMS he was satting in the 80s on these 4 L. He did receive a DuoNeb and an albuterol treatment in route to the hospital by EMS. He was just discharged on the and has been on prednisone 5 mg 6 times a day as well as cefuroxime. He says he has been feeling short of breath for the past 3 days and it has been increasing. He did not want to come to the hospital, but his family made him. He denies any chest pain. He denies any leg swelling. He denies fever at home, but EMS states they had an elevated temperature. Severity is moderate. Related Data Home Medications Medication Instructions Recorded Confirmed amlodipine 10 mg PO DAILY 08/04/18 08/13/18 apixaban [Eliquis] 2.5 mg PO BID 08/04/18 08/13/18 aspirin 81 mg PO DAILY 08/04/18 08/13/18 atorvastatin 10 mg PO DAILY 08/04/18 08/13/18 carvedilol 25 mg PO BID 08/04/18 08/13/18 cholecalciferol (vitamin D3) 1 tab PO DAILY 08/04/18 08/13/18 [Vitamin D3] gabapentin 300 mg PO TID 08/04/18 08/13/18 glimepiride 1 mg PO QAM 08/04/18 08/13/18 niacin 500 mg PO DAILY 08/04/18 08/13/18 tamsulosin [Flomax] 0.4 mg PO DAILY 08/04/18 08/13/18 cefuroxime axetil 500 mg PO Q12H 08/13/18 08/13/18 Previous Rx's Medication Instructions Recorded prednisone 5 mg PO DIRECTED #42 tab 08/08/18 Allergies Allergy/AdvReac Type Severity Reaction Status Date / Time No Known Allergies Allergy Verified 08/13/18 17:19 Review of Systems ROS: all other systems reviewed are negative Constitutional Denies body ache(s) and Denies chills ENT Denies dizziness Cardiovascular Denies chest pain Respiratory Reports dyspnea Gastrointestinal Denies nausea and Denies vomiting Musculoskeletal Denies myalgias and Denies arthralgias Integumentary/Breasts Denies sores and Denies wounds Neurologic Denies focal weakness and Denies numbness PMFSH Medical History Medical History Cancer of bladder (Acute) Diabetes (Acute) High cholesterol (Acute) History of deep vein thrombophlebitis of lower extremity (Acute) History of pulmonary embolism (Acute) Hypertension (Acute) Surgical History Surgical History H/O cystoscopy (Acute) Social History Social History Substance History: No History of Abuse Second Hand Smoke Exposure: No Smoking Status: Former smoker Tobacco Type: Cigarettes How Often Do You Have a Drink Containing Alcohol: Never Recent Travel in [facility] within the Last 8 Weeks: No Recent Out of Country Travel within the Last 8 Weeks: No Immunization History Tetanus Immunization: >5 Years Exam Narrative Exam Narrative: GENERAL: Awake and alert, in moderate respiratory distress. SKIN: Focused skin assessment warm/dry. No wounds or signs of infection. HEAD: Atraumatic. Normocephalic. EYES: Pupils equal and round. No scleral icterus. No injection or drainage. ENT: No nasal bleeding or discharge. Mucous membranes pink and moist. NECK: Trachea midline. No JVD. CARDIOVASCULAR: Regular rate and rhythm. No murmur appreciated. RESPIRATORY: Tachypneic, crackles to the left lung. GASTROINTESTINAL: Abdomen soft, non-tender, nondistended. MUSCULOSKELETAL: No obvious deformities. No clubbing. No cyanosis. No edema. NEUROLOGICAL: Awake and alert. No obvious cranial nerve deficits. Motor grossly within normal limits. Normal speech. PSYCHIATRIC: Appropriate mood and affect; insight and judgment normal. Course Initial Documented Vital Signs Pulse Rate 91 H 08/13/18 16:45 Pulse Oximetry 87 L 08/13/18 16:45 Last Documented Vital Signs Temperature 100.1 F H 08/13/18 17:00 Pulse Rate 92 H 08/13/18 17:05 Respiratory Rate 18 08/13/18 17:48 Blood Pressure 148/65 H 08/13/18 17:00 Pulse Oximetry 93 L 08/13/18 17:50 Medical Decision Making MDM Narrative Medical decision making narrative: Patient is a 78-year-old male who comes in complaining of shortness of breath. Exam shows crackles to the left lung. IV established, labs sent. Patient is on 4 L nasal cannula, satting in the low 90s. Patient given 3 DuoNeb's and a dose of Decadron. Chest x-ray performed shows a left upper lobe consolidation. Labs show a white blood cell count of 20. Patient continues to have low oxygen saturations on nasal cannula, it was bumped up to 6 L and he still has saturations that are in the high 80s, low 90s. He appears tachypneic. Decision made to place him on BiPAP. Patient given cefepime and Levaquin. Admitted for further management. Medical Screen Exam Complete: Yes Emergency Medical Condition: Yes Differential Diagnosis Differential Diagnosis: Pneumonia versus COPD exacerbation versus electrolyte abnormality Medical Records Medical records reviewed: Yes I reviewed the patient's medical records. Lab Data Lab results reviewed: Yes I reviewed the patient's lab results. Result diagrams: 08/13/18 17:00 08/13/18 17:00 Lab Results 08/13/18 08/13/18 08/13/18 Range/Units 17:00 17:00 17:00 CBC w Diff Auto diff final WBC 20.7 H (4.0-11.0) th/mm3 RBC 4.67 (4.50-5.90) mil/mm3 Hgb 13.4 (13.0-17.0) gm/dL Hct 40.2 (39.0-51.0) % MCV 86.0 (80.0-100.0) fL MCH 28.8 (27.0-34.0) pg MCHC 33.5 (32.0-36.0) % RDW 13.4 (11.6-17.2) % Plt Count 223 (150-450) th/mm3 MPV 8.0 (7.0-11.0) fL Neut % (Auto) 88.6 H (16.0-70.0) % Lymph % (Auto) 4.4 L (9.0-44.0) % Hamilton % (Auto) 6.2 (0.0-8.0) % Eos % (Auto) 0.2 (0.0-4.0) % Baso % (Auto) 0.6 (0.0-2.0) % Neut # (Auto) 18.4 H (1.8-7.7) th/mm3 Lymph # (Auto) 0.9 L (1.0-4.8) th/mm3 Hamilton # (Auto) 1.3 H (0.0-0.9) th/mm3 Eos # (Auto) 0.0 (0.0-0.4) th/mm3 Baso # (Auto) 0.1 (0.0-0.2) th/mm3 WBC Differential . Differential Comment . PT 11.4 (9.8-11.6) sec INR 1.1 Ratio APTT 36.2 H (24.3-30.1) sec Puncture Site Patient Temperature VBG pH (7.360-7.400) VBG pCO2 (44-48) mmHG VBG pO2 (35-40) mmHG VBG HCO3 (22-26) mmol/L VBG O2 Saturation (70-76) % VBG O2 Content (9.0-17.0) Vol % VBG Base Excess (-2-2) mmol/L VBG Carboxyhemoglobin (0-4) % VBG Methemoglobin (0-2) % Hemoglobin (12.0-16.0) G/DL O2 Delivery Device Liter Flow L/M Critical Value Sodium 134 L (136-145) meq/L Potassium 4.4 (3.5-5.1) meq/L Chloride 99 (98-107) meq/L Carbon Dioxide 26.0 (21.0-32.0) meq/L Anion Gap 9 (5-15) meq/L BUN 36 H (7-18) mg/dL Creatinine 2.00 H (0.60-1.30) mg/dL Estimated GFR 32 L (>89) mL/min Random Glucose 274 H (74-106) mg/dL Lactic Acid (0.4-2.0) mmol/L Calcium 8.4 L (8.5-10.1) mg/dL Total Bilirubin 1.0 (0.2-1.0) mg/dL AST 10 L (15-37) U/L ALT 15 (12-78) U/L Alkaline Phosphatase 72 (45-117) U/L Total Creatine Kinase (39-308) U/L Troponin I Less than 0.02 L (0.02-0.05) ng/mL Total Protein 6.3 L (6.4-8.2) g/dL Albumin 2.1 L (3.4-5.0) g/dL 08/13/18 08/13/18 08/13/18 Range/Units 17:00 17:00 17:08 CBC w Diff WBC (4.0-11.0) th/mm3 RBC (4.50-5.90) mil/mm3 Hgb (13.0-17.0) gm/dL Hct (39.0-51.0) % MCV (80.0-100.0) fL MCH (27.0-34.0) pg MCHC (32.0-36.0) % RDW (11.6-17.2) % Plt Count (150-450) th/mm3 MPV (7.0-11.0) fL Neut % (Auto) (16.0-70.0) % Lymph % (Auto) (9.0-44.0) % Hamilton % (Auto) (0.0-8.0) % Eos % (Auto) (0.0-4.0) % Baso % (Auto) (0.0-2.0) % Neut # (Auto) (1.8-7.7) th/mm3 Lymph # (Auto) (1.0-4.8) th/mm3 Hamilton # (Auto) (0.0-0.9) th/mm3 Eos # (Auto) (0.0-0.4) th/mm3 Baso # (Auto) (0.0-0.2) th/mm3 WBC Differential Differential Comment PT (9.8-11.6) sec INR Ratio APTT (24.3-30.1) sec Puncture Site Iv Patient Temperature 98.6 VBG pH 7.47 H (7.360-7.400) VBG pCO2 38 L (44-48) mmHG VBG pO2 23 L* (35-40) mmHG VBG HCO3 27 H (22-26) mmol/L VBG O2 Saturation 36 L (70-76) % VBG O2 Content 6.8 L (9.0-17.0) Vol % VBG Base Excess 3.4 H (-2-2) mmol/L VBG Carboxyhemoglobin 1.8 (0-4) % VBG Methemoglobin 1.2 (0-2) % Hemoglobin 13.5 (12.0-16.0) G/DL O2 Delivery Device Nasal cannula Liter Flow 4.00 L/M Critical Value Yes Sodium (136-145) meq/L Potassium (3.5-5.1) meq/L Chloride (98-107) meq/L Carbon Dioxide (21.0-32.0) meq/L Anion Gap (5-15) meq/L BUN (7-18) mg/dL Creatinine (0.60-1.30) mg/dL Estimated GFR (>89) mL/min Random Glucose (74-106) mg/dL Lactic Acid 2.0 (0.4-2.0) mmol/L Calcium (8.5-10.1) mg/dL Total Bilirubin (0.2-1.0) mg/dL AST (15-37) U/L ALT (12-78) U/L Alkaline Phosphatase (45-117) U/L Total Creatine Kinase 13 L (39-308) U/L Troponin I (0.02-0.05) ng/mL Total Protein (6.4-8.2) g/dL Albumin (3.4-5.0) g/dL Imaging Data Radiologist's impression: Chest X-Ray 08/13/18 16:50 CONCLUSION: Diffuse widespread interstitial lung disease with bleb formation in the left upper lobe. Clearly worse airspace disease in the left upper lobe since the . . ECG Data EKG Prior to Arrival: No Attestation: I personally reviewed and interpreted this ECG as follows: Interpretation: ECG shows NSR at a rate of 90, no ST elevation, normal intervals Discharge Plan Discharge Disposition Patient Disposition: 30 Still Patient Discharge Condition Condition: Stable Discharge Details Diagnosis: Acute respiratory failure with hypoxia, Pneumonia Physicians Team ED Provider: Jeanna Brian Primary Care Provider: Stephon Linder Rxs /Orders / Referrals /Forms Prescriptions: No Action carvedilol 25 mg Tablet 25 mg PO BID RF: 0 atorvastatin 10 mg Tablet 10 mg PO DAILY RF: 0 tamsulosin [Flomax] 0.4 mg Capsule 0.4 mg PO DAILY RF: 0 gabapentin 300 mg Capsule 300 mg PO TID RF: 0 aspirin 81 mg Tablet,Chewable 81 mg PO DAILY RF: 0 apixaban [Eliquis] 2.5 mg Tablet 2.5 mg PO BID RF: 0 glimepiride 1 mg Tablet 1 mg PO QAM RF: 0 amlodipine 10 mg Tablet 10 mg PO DAILY RF: 0 niacin 500 mg Tablet 500 mg PO DAILY RF: 0 cholecalciferol (vitamin D3) [Vitamin D3] 2,000 unit Capsule 1 tab PO DAILY RF: 0 prednisone 5 mg Tablet 5 mg PO DIRECTED Qty: 42 RF: 0 cefuroxime axetil 500 mg Tablet 500 mg PO Q12H RF: 0 Discharge Interventions Interventions: Vital Signs Last Done: 08/13/18 17:48 Status ED Status: With Doctor
[2018-08-13] MEDS ORDERED: Acetaminophen 325 MG Tablet PO PRN (19:17)
[2018-08-13] MEDS ORDERED: Bisacodyl 10 MG Supp RECTAL PRN (19:17)
[2018-08-13] MEDS ORDERED: Dextrose 50% in Water 50 ML Vial IV.PUSH PRN (19:18)
[2018-08-13] MEDS: Senna/Docusate Sodium 8.6/50 MG Tablet PO SCH (21:15)
[2018-08-13] MEDS: Heparin - SQ 10,000 UNITS/ML Vial SQ SCH (21:15)
[2018-08-13] MEDS: Carvedilol 12.5 MG Tablet PO SCH (21:15)
[2018-08-13] MEDS: Insulin NovoLOG Aspart Correctional Sugar Inj SQ SCH (21:16)
[2018-08-13] MEDS: MethylPREDNISolone Sod Succinate Inj 125 MG/2 ML Vial IV.PUSH SCH (23:49)
[2018-08-14] MEDS: Insulin NovoLOG Aspart Correctional Sugar Inj SQ SCH ×5 (02:50→20:34)
[2018-08-14 04:45] LABS: Baso % (Auto) 0.1 % (0.0-2.0); Hematocrit 38.2 % (39.0-51.0); Hemoglobin 12.9 gm/dL (13.0-17.0); Lymph # (Auto) 0.8 th/mm3 (1.0-4.8); Lymph % (Auto) 4.7 % (9.0-44.0); Mean Corpuscular HGB Conc 33.9 % (32.0-36.0); Mean Corpuscular Hemoglobin 29.1 pg (27.0-34.0); Mean Corpuscular Volume 85.8 fL (80.0-100.0); Mean Platelet Volume 8.4 fL (7.0-11.0); Mono # (Auto) 0.4 th/mm3 (0.0-0.9); Mono % (Auto) 2.3 % (0.0-8.0); Neut # (Auto) 14.9 th/mm3 (1.8-7.7); Neut % (Auto) 92.9 % (16.0-70.0); Platelet Count 205 th/mm3 (150-450); Red Blood Count 4.45 mil/mm3 (4.50-5.90); Red Cell Distribution Width 13.4 % (11.6-17.2); White Blood Count 16.1 th/mm3 (4.0-11.0)
[2018-08-14 04:56] LABS: Potassium 4.1 meq/L (3.5-5.1)
[2018-08-14 04:59] LABS: Calcium 8.6 mg/dL (8.5-10.1); Carbon Dioxide 24.4 meq/L (21.0-32.0)
[2018-08-14] MEDS: MethylPREDNISolone Sod Succinate Inj 125 MG/2 ML Vial IV.PUSH SCH ×4 (05:12→20:18)
[2018-08-14] MEDS: Carvedilol 12.5 MG Tablet PO SCH ×2 (09:00→20:20)
[2018-08-14] MEDS: Gabapentin 300 MG Capsule PO SCH ×3 (09:00→17:03)
[2018-08-14] MEDS: amLODIPine 10 MG Tablet PO SCH (09:01)
[2018-08-14] MEDS: Senna/Docusate Sodium 8.6/50 MG Tablet PO SCH ×2 (09:02→20:20)
[2018-08-14] MEDS: Heparin - SQ 10,000 UNITS/ML Vial SQ SCH (09:29)
--- NOTE | 2018-08-14 09:29 | P.HP ---
History of Present Illness Primary Care Physician: Stephon Linder MD Chief Complaint: Shortness of breath History of Present Illness: This is a 78-year-old male patient with a known medical history of chronic lung disease on home O2, history of DVT on Eliquis, hyperlipidemia, hypertension and diabetes who presented to the ED with complaints of shortness of breath. Patient was recently admitted to the hospital earlier this month, was discharged home on prednisone 5 mg as well as cefuroxime. Patient does state he finished complete dose. Despite finishing antibiotics and steroids patient has still continued complaints of shortness of breath and EMS found the patient to be with oxygen saturations in the 80s. Patient does use 4 L nasal cannula of oxygen at home, follows with civil engineering specialist, Dr. Pearson, and last saw him on Friday. At that time patient denies any new medications and was stable and over the course of the week he just felt continued shortness of breath. Patient denies any fevers, chills, cough, abdominal pain, nausea, vomiting, diarrhea or dysuria. Patient denies any chest pain or headache. He does admit to compliance with his medications. At the time of assessment patient is on 6 L nasal cannula, no accessory muscle use, no shortness of breath at the. On exam, rhonchi throughout lung thrasher. - Diagnosis (1) Acute respiratory failure with hypoxia (2) COPD exacerbation (3) Pneumonia Estimated Total Length of Stay (Days): 3 Plans for Post Hospital Care: Not yet determined Review of Systems All other systems reviewed negative except as stated [facility] - History History Provided By: Patient, Family Member - Medical History Medical History: Medical History (Last Reviewed 08/14/18 @ 12:26 by Jeanna Oliveros) Cancer of bladder Diabetes High cholesterol History of deep vein thrombophlebitis of lower extremity History of pulmonary embolism Hypertension - Surgical History Surgical History: Surgical History (Last Reviewed 08/14/18 @ 12:26 by Jeanna Oliveros) H/O cystoscopy - Family History Family History: Family History (Last Updated 08/14/18 @ 12:26 by Jeanna Oliveros) Other Family history in first degree relatives is unremarkable Family history non-contributory - Social History I have reviewed the patient's Social History: Yes - Tobacco History Second Hand Smoke Exposure: No Tobacco Use In Past 30 Days: No Smoking Status: Former smoker Tobacco Type: Cigarettes - Alcohol History How Often Do You Have a Drink Containing Alcohol: Never - Substance Use History Substance History: No History of Abuse - Travel History Recent Travel in the [place] Within the Last 8 Weeks: No Recent Travel Out of the Country Within the Last 8 Weeks: No - Immunization History Tetanus Immunization: Unsure Medications and Allergies Active Medications: Active Medications Acetaminophen (Tylenol) 650 mg PO Q4H PRN PRN Reason: Temp > 100.4 Al Hydroxide/Mg Hydroxide (Milk Of Magnesia Liq) 30 ml PO Q12H PRN PRN Reason: Mild Constipation Albuterol (Duoneb Neb (Sampson)) 1 ampul NEB Q4HR NEB [facility] Last Admin: 08/14/18 07:33 Dose: 1 ampul Amlodipine Besylate (Norvasc) 10 mg PO DAILY [facility] Last Admin: 08/14/18 09:01 Dose: 10 mg Apixaban (Eliquis) 2.5 mg PO BID [facility] Last Admin: 08/13/18 21:15 Dose: 2.5 mg Aspirin (Aspirin Chew) 81 mg PO DAILY [facility] Last Admin: 08/14/18 09:00 Dose: 81 mg Atorvastatin Calcium (Lipitor) 10 mg PO DAILY [facility] Last Admin: 08/14/18 09:01 Dose: 10 mg Bisacodyl (Dulcolax Supp) 10 mg RECTAL DAILY PRN PRN Reason: SEVERE CONSITIPATION Carvedilol (Coreg) 25 mg PO BID [facility] Last Admin: 08/14/18 09:00 Dose: 25 mg Dextrose (D50w Vial) 50 ml IV.PUSH UNSCH PRN PRN Reason: PER HYPOGLYCEMIA PROTOCOL Gabapentin (Neurontin) 300 mg PO TID [facility] Last Admin: 08/14/18 09:00 Dose: 300 mg Glucagon (Glucagon Inj) 1 mg OTHER PRN PRN PRN Reason: for Hypoglycemia Protocol Heparin Sodium (Porcine) (Heparin Inj) 5,000 units SQ Q12H [facility] Last Admin: 08/13/18 21:15 Dose: 5,000 units Levofloxacin/Dextrose (Levaquin 750 Mg Premix Inj) 150 mls @ 100 mls/hr IV.SIG Q48H [facility] Insulin Aspart (Novolog Insulin Correctional Sugar Inj) 0 unit SQ ACHS AND 3AM SAMPSON; Protocol Last Admin: 08/14/18 09:03 Dose: 3 unit Lactulose (Lactulose Liq) 30 ml PO DAILY PRN PRN Reason: SEVERE CONSITIPATION Methylprednisolone Sodium Succinate (Solumedrol Inj) 60 mg IV.PUSH Q6HR [facility] Last Admin: 08/14/18 05:12 Dose: 60 mg Ondansetron HCl (Zofran Inj) 4 mg IV.PUSH Q6H PRN PRN Reason: NAUSEA OR VOMITING Senna/Docusate Sodium (Ingrid-Colace) 1 tab PO BID [facility] Last Admin: 08/14/18 09:02 Dose: Not Given Sennosides (Senokot) 17.2 mg PO Q12H PRN PRN Reason: Moderate Constipation Sodium Chloride (Ns Flush) 2 ml IV.FLUSH BID [facility] Last Admin: 08/14/18 09:02 Dose: 2 ml Sodium Chloride (Ns Flush) 2 ml IV.FLUSH PRN PRN PRN Reason: FLUSH AFTER USING IV ACCESS Last Admin: 08/13/18 23:50 Dose: 2 ml Tamsulosin HCl (Flomax) 0.4 mg PO DAILY [facility] Last Admin: 08/14/18 09:00 Dose: 0.4 mg Allergies Allergy/AdvReac Type Severity Reaction Status Date / Time No Known Allergies Allergy Verified 08/13/18 17:19 Home Medications Medication Instructions Recorded Confirmed Type amlodipine 10 mg PO DAILY 08/04/18 08/13/18 History apixaban [Eliquis] 2.5 mg PO BID 08/04/18 08/13/18 History aspirin 81 mg PO DAILY 08/04/18 08/13/18 History atorvastatin 10 mg PO DAILY 08/04/18 08/13/18 History carvedilol 25 mg PO BID 08/04/18 08/13/18 History cholecalciferol (vitamin D3) 1 tab PO DAILY 08/04/18 08/13/18 History [Vitamin D3] gabapentin 300 mg PO TID 08/04/18 08/13/18 History glimepiride 1 mg PO QAM 08/04/18 08/13/18 History niacin 500 mg PO DAILY 08/04/18 08/13/18 History tamsulosin [Flomax] 0.4 mg PO DAILY 08/04/18 08/13/18 History cefuroxime axetil 500 mg PO Q12H 08/13/18 08/13/18 History Exam Vital signs: Vital Signs 08/13/18 16:45 08/13/18 16:50 08/13/18 16:55 Temperature Pulse Rate 91 H 89 90 Respiratory Rate 24 24 Blood Pressure Pulse Oximetry 87 L 87 L 08/13/18 17:00 08/13/18 17:05 08/13/18 17:30 Temperature 100.1 F H Pulse Rate 91 H 92 H Respiratory Rate 24 26 H 20 Blood Pressure 148/65 H Pulse Oximetry 87 L 89 L 08/13/18 17:48 08/13/18 17:50 08/13/18 17:55 Temperature Pulse Rate 88 Respiratory Rate 18 18 Blood Pressure 139/73 Pulse Oximetry 91 L 93 L 93 L 08/13/18 19:12 08/13/18 19:40 08/13/18 19:45 Temperature Pulse Rate 88 Respiratory Rate 22 Blood Pressure 135/62 Pulse Oximetry 95 90 L 94 L 08/13/18 20:00 08/13/18 20:50 08/13/18 21:00 Temperature Pulse Rate 84 82 82 Respiratory Rate 28 H 18 18 Blood Pressure 134/76 121/70 Pulse Oximetry 93 L 95 08/13/18 22:00 08/13/18 23:00 08/13/18 23:15 Temperature Pulse Rate 74 68 77 Respiratory Rate 15 21 20 Blood Pressure 100/50 L 106/53 L Pulse Oximetry 92 L 94 L 94 L 08/14/18 00:00 08/14/18 01:00 08/14/18 02:00 Temperature 98.2 F Pulse Rate 68 66 62 Respiratory Rate 19 19 15 Blood Pressure 108/58 L 104/52 L Pulse Oximetry 92 L 94 L 91 L 08/14/18 03:00 08/14/18 03:22 08/14/18 04:00 Temperature 97.6 F Pulse Rate 64 64 62 Respiratory Rate 15 18 15 Blood Pressure 109/52 L 104/53 L Pulse Oximetry 90 L 93 L 94 L 08/14/18 05:00 08/14/18 06:00 08/14/18 07:34 Temperature Pulse Rate 70 66 69 Respiratory Rate 18 16 20 Blood Pressure 139/73 120/61 Pulse Oximetry 95 96 92 L Intake & Output 08/13/18 08/14/18 08/14/18 18:59 06:59 18:59 Intake Total 100 / 100 150 / 150 Output Total 500 / 500 Balance 100 / 100 -350 / -350 Weight 72.5 kg 68.5 kg Intake: IV 100 / 100 150 / 150 Maxipime Inj 1,000 MG In NS Inj 100 / 100 100 ML @ 200 mls/hr IV.SIG ONCE ONE Rx#:[id number] Levaquin 750 mg Premix Inj 150 150 / 150 ML @ 100 mls/hr IV.SIG ONCE ONE Rx#:[id number] Output: Urine 500 / 500 Other: Date of Last Bowel Movement 08/13/18 Narrative: GENERAL: Well-developed, well-nourished patient in NAD. On supplemental O2. SKIN: Warm and dry. No rash. HEAD: Normocephalic. Atraumatic. EYES: Pupils equal and round. No scleral icterus. No injection or drainage. ENT: No nasal bleeding or discharge. Mucous membranes pink and moist. NECK: Supple. Trachea midline. CARDIOVASCULAR: Regular rate and rhythm. S1, S2 noted. No murmur appreciated. RESPIRATORY: No accessory muscle use. Rhonchi throughout. Breath sounds equal bilaterally. GASTROINTESTINAL: Abdomen soft, non-tender, nondistended. Normoactive bowel sounds x4. MUSCULOSKELETAL: No obvious deformities. Extremities without clubbing, cyanosis , or edema. NEUROLOGICAL: Awake and alert. No obvious cranial nerve deficits. Motor grossly within normal limits. 5/5 muscle strength in bilateral upper and lower extremities. Normal speech. PSYCHIATRIC: Appropriate mood and affect; insight and judgment normal. Results - Labs CBC & Chem 7: 08/15/18 05:38 08/15/18 05:38 Labs: Laboratory Results - last 24 hr 08/13/18 08/13/18 08/13/18 17:00 17:00 17:00 CBC w Diff Auto diff final WBC 20.7 H RBC 4.67 Hgb 13.4 Hct 40.2 MCV 86.0 MCH 28.8 MCHC 33.5 RDW 13.4 Plt Count 223 MPV 8.0 Neut % (Auto) 88.6 H Lymph % (Auto) 4.4 L T[place] % (Auto) 6.2 Eos % (Auto) 0.2 Baso % (Auto) 0.6 Neut # (Auto) 18.4 H Lymph # (Auto) 0.9 L [place] # (Auto) 1.3 H Eos # (Auto) 0.0 Baso # (Auto) 0.1 WBC Differential . Differential Comment . PT 11.4 INR 1.1 APTT 36.2 H Puncture Site Patient Temperature VBG pH VBG pCO2 VBG pO2 VBG HCO3 VBG O2 Saturation VBG O2 Content VBG Base Excess VBG Carboxyhemoglobin VBG Methemoglobin Hemoglobin O2 Delivery Device Liter Flow Critical Value Sodium 134 L Potassium 4.4 Chloride 99 Carbon Dioxide 26.0 Anion Gap 9 BUN 36 H Creatinine 2.00 H Estimated GFR 32 L POC Glucose Random Glucose 274 H Lactic Acid Calcium 8.4 L Total Bilirubin 1.0 AST 10 L ALT 15 Alkaline Phosphatase 72 Total Creatine Kinase Troponin I Less than 0.02 L Total Protein 6.3 L Albumin 2.1 L 08/13/18 08/13/18 08/13/18 17:00 17:00 17:08 CBC w Diff WBC RBC Hgb Hct MCV MCH MCHC RDW Plt Count MPV Neut % (Auto) Lymph % (Auto) T[place] % (Auto) Eos % (Auto) Baso % (Auto) Neut # (Auto) Lymph # (Auto) [place] # (Auto) Eos # (Auto) Baso # (Auto) WBC Differential Differential Comment PT INR APTT Puncture Site Iv Patient Temperature 98.6 VBG pH 7.47 H VBG pCO2 38 L VBG pO2 23 L* VBG HCO3 27 H VBG O2 Saturation 36 L VBG O2 Content 6.8 L VBG Base Excess 3.4 H VBG Carboxyhemoglobin 1.8 VBG Methemoglobin 1.2 Hemoglobin 13.5 O2 Delivery Device Nasal cannula Liter Flow 4.00 Critical Value Yes Sodium Potassium Chloride Carbon Dioxide Anion Gap BUN Creatinine Estimated GFR POC Glucose Random Glucose Lactic Acid 2.0 Calcium Total Bilirubin AST ALT Alkaline Phosphatase Total Creatine Kinase 13 L Troponin I Total Protein Albumin 08/13/18 08/14/18 08/14/18 19:46 02:46 04:25 CBC w Diff Auto diff final WBC 16.1 H RBC 4.45 L Hgb 12.9 L Hct 38.2 L MCV 85.8 MCH 29.1 MCHC 33.9 RDW 13.4 Plt Count 205 MPV 8.4 Neut % (Auto) 92.9 H Lymph % (Auto) 4.7 L [place] % (Auto) 2.3 Eos % (Auto) 0.0 Baso % (Auto) 0.1 Neut # (Auto) 14.9 H Lymph # (Auto) 0.8 L [place] # (Auto) 0.4 Eos # (Auto) 0.0 Baso # (Auto) 0.0 WBC Differential . Differential Comment . PT INR APTT Puncture Site Patient Temperature VBG pH VBG pCO2 VBG pO2 VBG HCO3 VBG O2 Saturation VBG O2 Content VBG Base Excess VBG Carboxyhemoglobin VBG Methemoglobin Hemoglobin O2 Delivery Device Liter Flow Critical Value Sodium Potassium Chloride Carbon Dioxide Anion Gap BUN Creatinine Estimated GFR POC Glucose 303 H 252 H Random Glucose Lactic Acid Calcium Total Bilirubin AST ALT Alkaline Phosphatase Total Creatine Kinase Troponin I Total Protein Albumin 08/14/18 08/14/18 04:25 08:28 CBC w Diff WBC RBC Hgb Hct MCV MCH MCHC RDW Plt Count MPV Neut % (Auto) Lymph % (Auto) T[place] % (Auto) Eos % (Auto) Baso % (Auto) Neut # (Auto) Lymph # (Auto) T[place] # (Auto) Eos # (Auto) Baso # (Auto) WBC Differential Differential Comment PT INR APTT Puncture Site Patient Temperature VBG pH VBG pCO2 VBG pO2 VBG HCO3 VBG O2 Saturation VBG O2 Content VBG Base Excess VBG Carboxyhemoglobin VBG Methemoglobin Hemoglobin O2 Delivery Device Liter Flow Critical Value Sodium 137 Potassium 4.1 Chloride 102 Carbon Dioxide 24.4 Anion Gap 11 BUN 44 H Creatinine 1.80 H Estimated GFR 37 L POC Glucose 219 H Random Glucose 255 H Lactic Acid Calcium 8.6 Total Bilirubin AST ALT Alkaline Phosphatase Total Creatine Kinase Troponin I Total Protein Albumin - Imaging Impressions Chest X-Ray 08/13/18 16:50 CONCLUSION: Diffuse widespread interstitial lung disease with bleb formation in the left upper lobe. Clearly worse airspace disease in the left upper lobe since the . . Caprini VTE Risk Assessment Caprini VTE Risk Assessment: Moderate/High Risk (score >= 2) Caprini Risk Assessment Model: Point Value = 1 Point Value = 2 Point Value = 3 Point Value = 5 Age 41-60 Minor surgery BMI > 25 kg/m2 Swollen legs Varicose veins or History of unexplained or recurrent spontaneous Oral contraceptives or hormone replacement Sepsis (< 1 month) Serious lung disease, including pneumonia (< 1 month) Abnormal pulmonary function Acute myocardial infarction Congestive heart failure (< 1 month) History of inflammatory bowel disease Medical patient at bed rest Age 61-74 Arthroscopic surgery Major open surgery (> 45 min) Laparoscopic surgery (> 45 min) Malignancy Confined to bed (> 72 hours) Immobilizing plaster cast Central venous access Age >= 75 History of VTE Family history of VTE Factor V Leiden Prothrombin [id number] Lupus anticoagulant Anticardiolipin antibodies Elevated serum homocysteine Heparin-induced thrombocytopenia Other congenital or acquired thrombophilia Stroke (< 1 month) Elective arthroplasty Hip, pelvis, or leg fracture Acute spinal cord injury (< 1 month) Prophylaxis Regimen: Total Risk Factor Score Risk Level Prophylaxis Regimen 0-1 Low Early ambulation 2 Moderate Order ONE of the following: *Sequential Compression Device (SCD) *Heparin 5000 units SQ BID 3-4 Higher Order ONE of the following medications: *Heparin 5000 units SQ TID *Enoxaparin/Lovenox 40 mg SQ daily (WT < 150 kg, CrCl > 30 mL/min) *Enoxaparin/Lovenox 30 mg SQ daily (WT < 150 kg, CrCl > 10-29 mL/min) *Enoxaparin/Lovenox 30 mg SQ BID (WT < 150 kg, CrCl > 30 mL/min) AND/OR *Sequential Compression Device (SCD) 5 or more Highest Order ONE of the following medications: *Heparin 5000 units SQ TID (Preferred with Epidurals) *Enoxaparin/Lovenox 40 mg SQ daily (WT < 150 kg, CrCl > 30 mL/min) *Enoxaparin/Lovenox 30 mg SQ daily (WT < 150 kg, CrCl > 10-29 mL/min) *Enoxaparin/Lovenox 30 mg SQ BID (WT < 150 kg, CrCl > 30 mL/min) AND *Sequential Compression Device (SCD) Assessment and Plan - Assessment (1) Acute respiratory failure with hypoxia Code(s): J96.01 - Acute respiratory failure with hypoxia Status: Acute (2) COPD exacerbation Code(s): J44.1 - Chronic obstructive pulmonary disease with (acute) exacerbation Status: Acute (3) Pneumonia Code(s): J18.9 - Pneumonia, unspecified organism Status: Acute - Plan This is a 78-year-old male patient with: Acute on chronic respiratory failure with hypoxia COPD in exacerbation Healthcare associated pneumonia -Patient presents with shortness of breath times 5 days. -Recent admission and discharged on antibiotics as well as prednisone. Uses 4 L home O2. -Continue supplemental O2 as needed to keep oxygen saturations greater than 90% , patient is currently on 6 L nasal cannula. -Chest x-ray reviewed showing left upper lobe pneumonia, this is possibly secondary to recent hospitalization. Patient started on Levaquin, will continue. -Patient did present with leukocytosis with white blood cell the 20,000 although patient has been on steroids at home this could be contributing to the elevation. We will continue to monitor. Has been afebrile. -Methylprednisone 60 mg every 6 hours continue. Duo karens scheduled. -Pulmonary toilet. Incentive spirometer. Supportive care. Chronic kidney disease stage III -After review of medical records it appears that this could be his baseline renal function -Continue monitor renal function -Avoid nephrotoxins Type 2 diabetes, chronic: Will continue Accu-Chek before meals at bedtime, sliding scale, cover as needed. Monitor blood sugar trends. Especially on steroids. Hypertension, chronic: Will continue home blood pressure medications. Monitor blood pressure trends. 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 DVT prophylaxis: SCDs. Eliquis. (3) Pneumonia Qualifiers: Pneumonia type: due to unspecified organism Laterality: left Lung location: upper lobe of lung Qualified Code(s): J18.1 - Lobar pneumonia, unspecified organism
--- NOTE | 2018-08-14 19:57 | MB ---
cc: Ron Matthews MD DATE: 08/14/2018 REASON FOR CONSULTATION: Respiratory failure and pneumonia. HISTORY OF PRESENT ILLNESS: This is a 78-year-old white male with a longstanding history of interstitial lung disease and chronic bronchitis, O2 dependent at 4 liters nasal cannula, who has been admitted multiple times with respiratory distress, pneumonia, and exacerbation of bronchiectasis, and chronic bronchitis. The patient recently was started on oral antibiotics for an exacerbation of COPD, and was also on oral prednisone, but failed to improve, and apparently, he has not been eating for 2-3 days. Became extremely weak, unable to get out of bed, and became hypoxic, even though he was on oxygen at 4 liters. He was then brought by [facility] and admitted via the emergency room. Chest x-ray that was done upon admission showed an upper lobe infiltrate and extensive interstitial lung disease. The patient has a cough and brings up some whitish mucus. He has been on Ceftin as an outpatient, as well as prednisone 5 mg a day. Complained of some leg swelling, but denied any nausea, vomiting, fevers or chills. PAST MEDICAL HISTORY: Includes history for bladder cancer with resection, history for pulmonary embolism and DVT, history of diabetes, history of lung nodules, history of hypertension. He has had cystoscopies done. ALLERGIES: NO KNOWN DRUG ALLERGIES. HABITS AND SOCIAL HISTORY: The patient smoked 1-2 packs per day for over 35 years and quit. No significant alcohol use. Lives with his locally. FAMILY HISTORY: Noncontributory. REVIEW OF SYSTEMS: The patient denies chest pains. He has lost weight, has a very poor appetite, has trouble ambulating. He has wheezing and orthopnea, urinary frequency and hematuria, depression and anxiety. Denies any skin rash. MEDICATIONS: List included amlodipine 10 mg a day, Eliquis 2.5 mg b.i.d., atorvastatin 10 mg daily, carvedilol 25 mg b.i.d., gabapentin 300 mg b.i.d., glimepiride 1 mg daily, tamsulosin 0.4 mg a day, niacin 500 mg daily, aspirin 1 daily. PHYSICAL EXAMINATION: GENERAL: This is an averagely built elderly man, who is pale and dyspneic at rest with marked clubbing. No peripheral edema or lymphadenopathy. VITAL SIGNS: Blood pressure 130/70, pulse is 95, respirations 20, temperature 98. HEENT: Head is normocephalic. Pupils are reactive and equal. Tongue is moist. Throat is injected. Nasal mucosa edematous. NECK: Supple. No bruits, thyroid enlargement, or lymphadenopathy. CHEST: Fine crackles are heard at both lung bases and wheezes throughout both lung thrasher, prolonged expirations. HEART: Sounds are irregular S1 and S2 with no murmur. ABDOMEN: Soft, nontender. No organomegaly. Bowel sounds are active. EXTREMITIES: Decreased peripheral pulses with a few ecchymotic areas of the extremities. Reflexes are 1+. NEUROLOGIC: Patient does move all his extremities well with 1+ reflexes and no gross motor deficits. Cranial nerves grossly intact. RECTAL: Deferred. SKIN: Cool and dry. IMPRESSION: 1. Left upper lobe pneumonia with hypoxemia. 2. Acute on chronic respiratory failure. 3. Extensive pulmonary fibrosis with bronchiectasis with exacerbation. 4. History of hypertension. 5. Diabetes mellitus. 6. Chronic kidney disease, stage III. PLAN: The patient has been started on nebulized DuoNeb solution four times a day and p.r.n., O2 at 6 liters nasal cannula and wean to keep sats greater than 92. BiPAP will be used at night at 12/5 and 40% FiO2, Solu-Medrol 40 mg IV every 6 hours and taper down. Blood sugars to be monitored and insulin per sliding scale has been added. We will get a followup chest x-ray in 2 days. The patient will be advised to use an incentive spirometer every 2 hours. Sputum will be sent for Gram stain and culture. Thank you, DR. Torrez, for this consultation. Ron Matthews MD VJD/rh , 07:03 PM , 07:16 PM
--- NOTE | 2018-08-14 21:19 | ECG ---
Date Performed: 08/13/2018 Time Performed: 16:57:46 PTAGE: 78 years EKG: Sinus rhythm Since the previous tracing, no significant change noted ABNORMAL ECG PREVIOUS TRACING : 08/04/2018 13.53 DOCTOR: Rory Camargo Interpretating Date/Time 08/14/2018 21:18:20
--- NOTE | 2018-08-15 02:43 | XR ---
EXAM DATE: 08/15/2018 12:00 AM EDT AGE/SEX: 78 years / Male INDICATIONS: Shortness of breath CLINICAL DATA: This is the patient's subsequent encounter. Patient reports that signs and symptoms h ave been present for 3 days and indicates a pain score of 0/10. MEDICAL/SURGICAL HISTORY: . Hypercholesterolemia. Carcinoma, bladder. Hypertension. COPD. None . COMPARISON: [facility], CHEST 1V SINGLE AP, 08/13/2018. . FINDINGS: A single AP view of the chest demonstrates bilateral patchy airspace disease. The cardiomediastinal contours are unremarkable. Osseous structures are intact. CONCLUSION: Bilateral patchy airspace disease Electronically signed by: Gerald Bourne MD 08/15/2018 2:42 AM EDT
[2018-08-15] MEDS: Insulin NovoLOG Aspart Correctional Sugar Inj SQ SCH ×5 (02:56→21:47)
[2018-08-15] MEDS: MethylPREDNISolone Sod Succinate Inj 125 MG/2 ML Vial IV.PUSH SCH ×3 (03:16→15:10)
[2018-08-15 06:15] LABS: Baso # (Auto) 0.2 th/mm3 (0.0-0.2); Baso % (Auto) 0.6 % (0.0-2.0); Hematocrit 36.2 % (39.0-51.0); Hemoglobin 12.6 gm/dL (13.0-17.0); Lymph # (Auto) 0.7 th/mm3 (1.0-4.8); Lymph % (Auto) 2.6 % (9.0-44.0); Mean Corpuscular HGB Conc 34.9 % (32.0-36.0); Mean Corpuscular Hemoglobin 29.8 pg (27.0-34.0); Mean Corpuscular Volume 85.5 fL (80.0-100.0); Mean Platelet Volume 8.9 fL (7.0-11.0); Mono # (Auto) 0.7 th/mm3 (0.0-0.9); Mono % (Auto) 2.9 % (0.0-8.0); Neut # (Auto) 24.1 th/mm3 (1.8-7.7); Neut % (Auto) 93.9 % (16.0-70.0); Platelet Count 245 th/mm3 (150-450); Red Blood Count 4.23 mil/mm3 (4.50-5.90); Red Cell Distribution Width 13.9 % (11.6-17.2); White Blood Count 25.8 th/mm3 (4.0-11.0)
[2018-08-15 06:26] LABS: Potassium 3.8 meq/L (3.5-5.1)
[2018-08-15 06:29] LABS: Calcium 8.4 mg/dL (8.5-10.1); Carbon Dioxide 23.7 meq/L (21.0-32.0)
[2018-08-15] MEDS: Gabapentin 300 MG Capsule PO SCH ×3 (08:38→17:16)
[2018-08-15] MEDS: amLODIPine 10 MG Tablet PO SCH (08:38)
[2018-08-15] MEDS: Senna/Docusate Sodium 8.6/50 MG Tablet PO SCH ×2 (08:39→21:48)
[2018-08-15] MEDS: Carvedilol 12.5 MG Tablet PO SCH ×2 (08:39→21:48)
--- NOTE | 2018-08-15 10:21 | P.PNIM ---
Subjective Interval history: Follow up COPD Ex and pneumonia. Patient seen and examined, lying in bed comfortably on 6LNC. Tolerated BIPAP overnight. Pulm in to see patient last evening, appreciate input. Continue on ABX and steroids. Patient denies any sob , chest pain. Encouraged IS use as well as OOB to chair as tolerated. Awaiting PT eval. Afebrile overnight. VSS. Physical Exam Vital signs: Vital Signs 08/14/18 11:00 08/14/18 12:00 08/14/18 12:10 Temperature Pulse Rate 70 72 72 Respiratory Rate 20 20 16 Blood Pressure 115/62 119/63 Pulse Oximetry 91 L 91 L 08/14/18 13:00 08/14/18 14:00 08/14/18 15:00 Temperature 98.4 F 98.8 F 98.6 F Pulse Rate 72 76 74 Respiratory Rate 20 17 17 Blood Pressure 124/63 105/57 L 119/59 L Pulse Oximetry 91 L 88 L 88 L 08/14/18 16:00 08/14/18 16:34 08/14/18 17:00 Temperature Pulse Rate 72 74 74 Respiratory Rate 22 19 20 Blood Pressure 112/65 119/59 L Pulse Oximetry 90 L 90 L 08/14/18 18:00 08/14/18 19:00 08/14/18 19:17 Temperature 98.3 F 98.4 F Pulse Rate 72 76 78 Respiratory Rate 23 21 22 Blood Pressure 124/61 132/68 Pulse Oximetry 91 L 92 L 91 L 08/14/18 20:00 08/14/18 21:00 08/14/18 21:30 Temperature Pulse Rate 74 71 Respiratory Rate 21 Blood Pressure 115/64 Pulse Oximetry 91 L 93 L 08/14/18 21:43 08/14/18 22:00 08/14/18 23:00 Temperature Pulse Rate 70 68 66 Respiratory Rate 24 19 20 Blood Pressure 98/59 L 104/57 L 115/59 L Pulse Oximetry 91 L 96 94 L 08/15/18 00:00 08/15/18 00:25 08/15/18 01:00 Temperature Pulse Rate 66 66 66 Respiratory Rate 19 18 19 Blood Pressure 119/66 111/63 Pulse Oximetry 95 96 93 L 08/15/18 02:00 08/15/18 03:00 08/15/18 03:40 Temperature Pulse Rate 64 64 66 Respiratory Rate 17 23 16 Blood Pressure 125/78 131/78 Pulse Oximetry 95 95 95 08/15/18 04:00 08/15/18 04:14 08/15/18 05:00 Temperature Pulse Rate 66 66 68 Respiratory Rate 18 20 27 H Blood Pressure 133/73 121/66 133/72 Pulse Oximetry 93 L 93 L 92 L 08/15/18 06:00 08/15/18 07:00 08/15/18 07:52 Temperature Pulse Rate 68 64 71 Respiratory Rate 17 16 22 Blood Pressure 123/67 117/63 Pulse Oximetry 92 L 94 L 08/15/18 07:54 08/15/18 08:00 08/15/18 09:00 Temperature 98.1 F Pulse Rate 70 68 Respiratory Rate 21 16 Blood Pressure 136/73 112/59 L Pulse Oximetry 93 L 93 L 92 L Intake & Output 08/14/18 08/15/18 08/15/18 18:59 06:59 18:59 Intake Total 450 / 450 680 / 680 Output Total 600 / 600 450 / 450 Balance -150 / -150 230 / 230 Weight 70.3 kg Intake: IV 200 / 200 Maxipime Inj 1,000 MG In NS Inj 200 / 200 100 ML @ 200 mls/hr IV.SIG Q8H [facility] Rx#:[id number] Oral 450 / 450 480 / 480 Output: Urine 600 / 600 450 / 450 Other: Date of Last Bowel Movement 08/14/18 08/14/18 Narrative: GENERAL: Well-developed, well-nourished patient in NAD. On supplemental O2. SKIN: Warm and dry. No rash. HEAD: Normocephalic. Atraumatic. EYES: Pupils equal and round. No scleral icterus. No injection or drainage. ENT: No nasal bleeding or discharge. Mucous membranes pink and moist. NECK: Supple. Trachea midline. CARDIOVASCULAR: Regular rate and rhythm. S1, S2 noted. No murmur appreciated. RESPIRATORY: No accessory muscle use. Rhonchi throughout. Breath sounds equal bilaterally. GASTROINTESTINAL: Abdomen soft, non-tender, nondistended. Normoactive bowel sounds x4. MUSCULOSKELETAL: No obvious deformities. Extremities without clubbing, cyanosis , or edema. NEUROLOGICAL: Awake and alert. No obvious cranial nerve deficits. Motor grossly within normal limits. 5/5 muscle strength in bilateral upper and lower extremities. Normal speech. PSYCHIATRIC: Appropriate mood and affect; insight and judgment normal. Results - Labs CBC & Chem 7: 08/15/18 05:38 08/15/18 05:38 Laboratory Results - last 24 hr 08/14/18 08/14/18 08/14/18 04:25 12:48 16:57 CBC w Diff WBC RBC Hgb Hct MCV MCH MCHC RDW Plt Count MPV Neut % (Auto) Lymph % (Auto) [place] % (Auto) Eos % (Auto) Baso % (Auto) Neut # (Auto) Lymph # (Auto) [place] # (Auto) Eos # (Auto) Baso # (Auto) WBC Differential Differential Comment Sodium Potassium Chloride Carbon Dioxide Anion Gap BUN Creatinine Estimated GFR POC Glucose 309 H 383 H Random Glucose Calcium B-Natriuretic Peptide 184 H 08/14/18 08/15/18 08/15/18 20:32 02:47 05:38 CBC w Diff Auto diff final WBC 25.8 H RBC 4.23 L Hgb 12.6 L Hct 36.2 L MCV 85.5 MCH 29.8 MCHC 34.9 RDW 13.9 Plt Count 245 MPV 8.9 Neut % (Auto) 93.9 H Lymph % (Auto) 2.6 L [place] % (Auto) 2.9 Eos % (Auto) 0.0 Baso % (Auto) 0.6 Neut # (Auto) 24.1 H Lymph # (Auto) 0.7 L [place] # (Auto) 0.7 Eos # (Auto) 0.0 Baso # (Auto) 0.2 WBC Differential . Differential Comment . Sodium Potassium Chloride Carbon Dioxide Anion Gap BUN Creatinine Estimated GFR POC Glucose 389 H 250 H Random Glucose Calcium B-Natriuretic Peptide 08/15/18 08/15/18 05:38 08:10 CBC w Diff WBC RBC Hgb Hct MCV MCH MCHC RDW Plt Count MPV Neut % (Auto) Lymph % (Auto) [place] % (Auto) Eos % (Auto) Baso % (Auto) Neut # (Auto) Lymph # (Auto) [place] # (Auto) Eos # (Auto) Baso # (Auto) WBC Differential Differential Comment Sodium 138 Potassium 3.8 Chloride 105 Carbon Dioxide 23.7 Anion Gap 9 BUN 64 H Creatinine 1.80 H Estimated GFR 37 L POC Glucose 246 H Random Glucose 266 H Calcium 8.4 L B-Natriuretic Peptide - Imaging Impressions Chest X-Ray 08/15/18 00:00 CONCLUSION: Bilateral patchy airspace disease Assessment and Plan - Assessment (1) Acute respiratory failure with hypoxia Code(s): J96.01 - Acute respiratory failure with hypoxia Status: Acute (2) COPD exacerbation Code(s): J44.1 - Chronic obstructive pulmonary disease with (acute) exacerbation Status: Acute (3) Pneumonia Code(s): J18.9 - Pneumonia, unspecified organism Status: Acute - Plan This is a 78-year-old male patient with: Acute on chronic respiratory failure with hypoxia COPD in exacerbation Healthcare associated pneumonia -Patient presents with shortness of breath times 5 days. -Recent admission and discharged on antibiotics as well as prednisone. Uses 4 L home O2. -Continue supplemental O2 as needed to keep oxygen saturations greater than 90% , patient is currently on 6 L nasal cannula. Wean as tolerated. -Chest x-ray reviewed showing left upper lobe pneumonia, this is possibly secondary to recent hospitalization. Patient started on Levaquin, will continue. -Patient did present with leukocytosis with white blood cell the 20,000 although patient has been on steroids at home this could be contributing to the elevation. Will continue to monitor. Has been afebrile. -Methylprednisone 60 mg every 6 hours continue. Duo nebs scheduled. -BIPAP HS. -Pulmonary toilet. Incentive spirometer. -Pulmonology consulted, appreciate input and recommendations. -Await for improvement. Supportive care. Chronic kidney disease stage III -After review of medical records it appears that this could be his baseline renal function. -Continue monitor renal function. -Avoid nephrotoxins. Type 2 diabetes, chronic: Will continue Accu-Chek before meals at bedtime, sliding scale, cover as needed. Monitor blood sugar trends. Especially on steroids. Hypertension, chronic: Will continue home blood pressure medications. Monitor blood pressure trends. 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 DVT prophylaxis: SCDs. Eliquis. Discharge Planning: Await clinical improvement, still requiring 6LNC. (3) Pneumonia Qualifiers: Pneumonia type: due to unspecified organism Laterality: left Lung location: upper lobe of lung Qualified Code(s): J18.1 - Lobar pneumonia, unspecified organism
[2018-08-15] MEDS: MethylPREDNISolone Sod Succinate Inj 40 MG/ML Vial IV.PUSH SCH (21:47)
[2018-08-16] MEDS: Insulin NovoLOG Aspart Correctional Sugar Inj SQ SCH ×5 (01:43→21:26)
[2018-08-16 06:15] LABS: Baso # (Auto) 0.2 th/mm3 (0.0-0.2); Baso % (Auto) 0.8 % (0.0-2.0); Eos % (Auto) 0.1 % (0.0-4.0); Hematocrit 38.2 % (39.0-51.0); Hemoglobin 12.6 gm/dL (13.0-17.0); Lymph # (Auto) 0.7 th/mm3 (1.0-4.8); Lymph % (Auto) 3.4 % (9.0-44.0); Mean Corpuscular Hemoglobin 28.7 pg (27.0-34.0); Mean Platelet Volume 8.2 fL (7.0-11.0); Mono # (Auto) 0.6 th/mm3 (0.0-0.9); Mono % (Auto) 2.7 % (0.0-8.0); Neut # (Auto) 19.4 th/mm3 (1.8-7.7); Platelet Count 217 th/mm3 (150-450); Red Blood Count 4.39 mil/mm3 (4.50-5.90); Red Cell Distribution Width 13.3 % (11.6-17.2); White Blood Count 20.9 th/mm3 (4.0-11.0)
[2018-08-16 06:24] LABS: Calcium 8.7 mg/dL (8.5-10.1)
[2018-08-16 06:25] LABS: Carbon Dioxide 23.1 meq/L (21.0-32.0)
--- NOTE | 2018-08-16 07:18 | XR ---
EXAM DATE: 08/16/2018 6:00 AM EDT AGE/SEX: 78 years / Male INDICATIONS: Evaluate pneumonia. Shortness of breath. CLINICAL DATA: This is the patient's subsequent encounter. Patient reports that signs and symptoms h ave been present for 3 days and indicates a pain score of 0/10. MEDICAL/SURGICAL HISTORY: Hypertension. Diabetes mellitus type II. Chronic obstructive pulmon guevara disease. Bladder cancer. Pulmonary embolism. . Multiple cystoscopies. COMPARISON: [facility], CHEST 1V SINGLE AP, 08/15/2018. . FINDINGS: A single AP semierect portable view of the chest was obtained and again demonstrates coarse bilateral patchy airspace disease. This is not significantly changed. There is no new consolidation or effusio n. The heart size remains within normal limits. There are atherosclerotic changes in the aorta. The b adan thorax remains intact. Overlying electrocardiogram leads and oxygen tubing are noted. CONCLUSION: No significant change in the bilateral coarse patchy airspace opacities. Electronically signed by: Lewis Briones MD 08/16/2018 7:16 AM EDT
--- NOTE | 2018-08-16 07:50 | P.PNIM ---
Subjective Interval history: Follow-up COPD exacerbation and pneumonia. Patient seen and examined, sitting up in bed comfortably no apparent distress. He denies any chest pain or shortness of breath. He is continued on BiPAP overnight and presently on 6 L nasal cannula. Patient did tolerate sitting in the chair yesterday for several hours, will encourage him to do this today. Encourage incentive spirometer. Tolerating p.o. intake without any nausea or vomiting. Labs stable today. No fever overnight. Physical Exam Vital signs: Vital Signs 08/15/18 07:52 08/15/18 07:54 08/15/18 08:00 Temperature 98.1 F Pulse Rate 71 70 Respiratory Rate 22 21 Blood Pressure 136/73 Pulse Oximetry 93 L 93 L 08/15/18 09:00 08/15/18 10:00 08/15/18 10:58 Temperature 98.1 F Pulse Rate 68 70 74 Respiratory Rate 16 15 16 Blood Pressure 112/59 L 116/63 Pulse Oximetry 92 L 91 L 08/15/18 11:00 08/15/18 11:23 08/15/18 12:00 Temperature 98.1 F Pulse Rate 73 70 Respiratory Rate 17 17 Blood Pressure 122/65 119/85 Pulse Oximetry 94 L 93 L 91 L 08/15/18 13:00 08/15/18 14:00 08/15/18 15:00 Temperature 98.5 F Pulse Rate 70 76 68 Respiratory Rate 17 21 20 Blood Pressure 113/59 L 119/64 104/54 L Pulse Oximetry 91 L 87 L 95 08/15/18 15:38 08/15/18 16:00 08/15/18 17:00 Temperature 97.4 F L Pulse Rate 69 66 70 Respiratory Rate 24 13 26 H Blood Pressure 114/65 116/61 Pulse Oximetry 94 L 90 L 08/15/18 18:00 08/15/18 19:01 08/15/18 19:45 Temperature Pulse Rate 66 70 72 Respiratory Rate 23 14 18 Blood Pressure 110/62 125/71 Pulse Oximetry 92 L 92 L 92 L 08/15/18 20:00 08/15/18 21:00 08/15/18 21:45 Temperature Pulse Rate 70 66 Respiratory Rate 20 16 Blood Pressure 114/55 L 106/51 L Pulse Oximetry 90 L 89 L 94 L 08/15/18 22:01 08/15/18 23:00 08/15/18 23:18 Temperature Pulse Rate 66 56 L 57 L Respiratory Rate 17 16 16 Blood Pressure 116/60 101/53 L Pulse Oximetry 95 96 08/15/18 23:30 08/16/18 00:00 08/16/18 00:27 Temperature Pulse Rate 58 L Respiratory Rate 15 Blood Pressure 114/54 L Pulse Oximetry 96 94 L 94 L 08/16/18 01:00 08/16/18 02:00 08/16/18 03:00 Temperature Pulse Rate 58 L 60 64 Respiratory Rate 16 17 20 Blood Pressure 133/59 L 107/56 L 107/55 L Pulse Oximetry 95 94 L 90 L 08/16/18 03:45 08/16/18 04:00 08/16/18 04:03 Temperature 97.7 F Pulse Rate 63 62 Respiratory Rate 18 19 Blood Pressure 120/64 Pulse Oximetry 95 95 08/16/18 05:00 08/16/18 06:00 08/16/18 07:39 Temperature Pulse Rate 62 66 68 Respiratory Rate 17 17 20 Blood Pressure 119/62 127/70 Pulse Oximetry 95 93 L 91 L Intake & Output 08/15/18 08/16/18 08/16/18 18:59 06:59 18:59 Intake Total 700 / 700 350 / 350 Output Total 1550 / 1550 700 / 700 Balance -850 / -850 -350 / -350 Weight 70.3 kg Intake: IV 100 / 100 350 / 350 Maxipime Inj 1,000 MG In NS Inj 100 / 100 200 / 200 100 ML @ 200 mls/hr IV.SIG Q8H [facility] Rx#:[id number] Levaquin 750 mg Premix Inj 150 150 / 150 ML @ 100 mls/hr IV.SIG Q48H [facility] Rx#:[id number] Oral 600 / 600 Output: Urine 1550 / 1550 700 / 700 Stool 0 / 0 Other: Date of Last Bowel Movement 08/14/18 08/14/18 Narrative: GENERAL: Well-developed, well-nourished patient in NAD. On supplemental O2. SKIN: Warm and dry. No rash. HEAD: Normocephalic. Atraumatic. EYES: Pupils equal and round. No scleral icterus. No injection or drainage. ENT: No nasal bleeding or discharge. Mucous membranes pink and moist. NECK: Supple. Trachea midline. CARDIOVASCULAR: Regular rate and rhythm. S1, S2 noted. No murmur appreciated. RESPIRATORY: No accessory muscle use. Rhonchi throughout. Breath sounds equal bilaterally. GASTROINTESTINAL: Abdomen soft, non-tender, nondistended. Normoactive bowel sounds x4. MUSCULOSKELETAL: No obvious deformities. Extremities without clubbing, cyanosis , or edema. NEUROLOGICAL: Awake and alert. No obvious cranial nerve deficits. Motor grossly within normal limits. 5/5 muscle strength in bilateral upper and lower extremities. Normal speech. PSYCHIATRIC: Appropriate mood and affect; insight and judgment normal. Results - Labs CBC & Chem 7: 08/16/18 06:05 08/16/18 06:05 Laboratory Results - last 24 hr 08/15/18 08/15/18 08/15/18 08:10 12:11 16:26 CBC w Diff WBC RBC Hgb Hct MCV MCH MCHC RDW Plt Count MPV Neut % (Auto) Lymph % (Auto) [place] % (Auto) Eos % (Auto) Baso % (Auto) Neut # (Auto) Lymph # (Auto) [place] # (Auto) Eos # (Auto) Baso # (Auto) WBC Differential Differential Comment Sodium Potassium Chloride Carbon Dioxide Anion Gap BUN Creatinine Estimated GFR POC Glucose 246 H 436 H 471 H* Random Glucose Calcium 08/15/18 08/16/18 08/16/18 21:21 01:41 06:05 CBC w Diff Auto diff final WBC 20.9 H RBC 4.39 L Hgb 12.6 L Hct 38.2 L MCV 87.0 MCH 28.7 MCHC 33.0 RDW 13.3 Plt Count 217 MPV 8.2 Neut % (Auto) 93.0 H Lymph % (Auto) 3.4 L [place] % (Auto) 2.7 Eos % (Auto) 0.1 Baso % (Auto) 0.8 Neut # (Auto) 19.4 H Lymph # (Auto) 0.7 L [place] # (Auto) 0.6 Eos # (Auto) 0.0 Baso # (Auto) 0.2 WBC Differential . Differential Comment . Sodium Potassium Chloride Carbon Dioxide Anion Gap BUN Creatinine Estimated GFR POC Glucose 394 H 295 H Random Glucose Calcium 08/16/18 08/16/18 06:05 07:44 CBC w Diff WBC RBC Hgb Hct MCV MCH MCHC RDW Plt Count MPV Neut % (Auto) Lymph % (Auto) [place] % (Auto) Eos % (Auto) Baso % (Auto) Neut # (Auto) Lymph # (Auto) [place] # (Auto) Eos # (Auto) Baso # (Auto) WBC Differential Differential Comment Sodium 137 Potassium 4.0 Chloride 104 Carbon Dioxide 23.1 Anion Gap 10 BUN 70 H Creatinine 1.60 H Estimated GFR 42 L POC Glucose 309 H Random Glucose 286 H Calcium 8.7 - Imaging Impressions Chest X-Ray 08/16/18 06:00 CONCLUSION: No significant change in the bilateral coarse patchy airspace opacities. Assessment and Plan - Assessment (1) Acute respiratory failure with hypoxia Code(s): J96.01 - Acute respiratory failure with hypoxia Status: Acute (2) COPD exacerbation Code(s): J44.1 - Chronic obstructive pulmonary disease with (acute) exacerbation Status: Acute (3) Pneumonia Code(s): J18.9 - Pneumonia, unspecified organism Status: Acute - Plan This is a 78-year-old male patient with: Acute on chronic respiratory failure with hypoxia COPD in exacerbation Healthcare associated pneumonia -Patient presents with shortness of breath times 5 days. -Recent admission and discharged on antibiotics as well as prednisone. Uses 4 L home O2. Currently requiring 6 L nasal cannula. -Continue supplemental O2 as needed to keep oxygen saturations greater than 90%. -Chest x-ray reviewed showing left upper lobe pneumonia, this is possibly secondary to recent hospitalization. Patient started on Levaquin, will continue. -Patient did present with leukocytosis with white blood cell the 20,000 although patient has been on steroids at home this could be contributing to the elevation. Will continue to monitor. Has been afebrile. -Methylprednisone IV wean down. -Duo nebs scheduled. -Pulmonary toilet. Incentive spirometer. Supportive care. -[employer] has been consulted, input and recommendations appreciated. Chronic kidney disease stage III -After review of medical records it appears that this could be his baseline renal function -Continue monitor renal function -Avoid nephrotoxins Type 2 diabetes, chronic: Will continue Accu-Chek before meals at bedtime, sliding scale, cover as needed. Monitor blood sugar trends. Especially on steroids. Blood sugars have been elevated secondary to steroids. Will increase to medium sliding scale dose. Hypertension, chronic: Will continue home blood pressure medications. Monitor blood pressure trends. 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 DVT prophylaxis: SCDs. Eliquis. Discharge Planning: Await clinical improvement, still requiring 6LNC. (3) Pneumonia Qualifiers: Pneumonia type: due to unspecified organism Laterality: left Lung location: upper lobe of lung Qualified Code(s): J18.1 - Lobar pneumonia, unspecified organism
[2018-08-16] MEDS: Carvedilol 12.5 MG Tablet PO SCH ×2 (08:26→21:25)
[2018-08-16] MEDS: Gabapentin 300 MG Capsule PO SCH ×3 (08:26→17:39)
[2018-08-16] MEDS: amLODIPine 10 MG Tablet PO SCH (08:26)
[2018-08-16] MEDS: MethylPREDNISolone Sod Succinate Inj 40 MG/ML Vial IV.PUSH SCH ×2 (08:27→21:26)
[2018-08-16] MEDS: Senna/Docusate Sodium 8.6/50 MG Tablet PO SCH ×2 (08:27→21:26)
--- NOTE | 2018-08-16 15:20 | P.PN ---
Subjective Interval history: alert nad sitting in chair on o2 nc Physical Exam Vital signs: Vital Signs 08/15/18 15:38 08/15/18 16:00 08/15/18 17:00 Temperature 97.4 F L Pulse Rate 69 66 70 Respiratory Rate 24 13 26 H Blood Pressure 114/65 116/61 Pulse Oximetry 94 L 90 L 08/15/18 18:00 08/15/18 19:01 08/15/18 19:45 Temperature Pulse Rate 66 70 72 Respiratory Rate 23 14 18 Blood Pressure 110/62 125/71 Pulse Oximetry 92 L 92 L 92 L 08/15/18 20:00 08/15/18 21:00 08/15/18 21:45 Temperature Pulse Rate 70 66 Respiratory Rate 20 16 Blood Pressure 114/55 L 106/51 L Pulse Oximetry 90 L 89 L 94 L 08/15/18 22:01 08/15/18 23:00 08/15/18 23:18 Temperature Pulse Rate 66 56 L 57 L Respiratory Rate 17 16 16 Blood Pressure 116/60 101/53 L Pulse Oximetry 95 96 08/15/18 23:30 08/16/18 00:00 08/16/18 00:27 Temperature Pulse Rate 58 L Respiratory Rate 15 Blood Pressure 114/54 L Pulse Oximetry 96 94 L 94 L 08/16/18 01:00 08/16/18 02:00 08/16/18 03:00 Temperature Pulse Rate 58 L 60 64 Respiratory Rate 16 17 20 Blood Pressure 133/59 L 107/56 L 107/55 L Pulse Oximetry 95 94 L 90 L 08/16/18 03:45 08/16/18 04:00 08/16/18 04:03 Temperature 97.7 F Pulse Rate 63 62 Respiratory Rate 18 19 Blood Pressure 120/64 Pulse Oximetry 95 95 08/16/18 05:00 08/16/18 06:00 08/16/18 07:39 Temperature Pulse Rate 62 66 68 Respiratory Rate 17 17 20 Blood Pressure 119/62 127/70 Pulse Oximetry 95 93 L 91 L 08/16/18 08:00 08/16/18 09:00 08/16/18 10:00 Temperature 97.9 F 97.9 F 97.9 F Pulse Rate 62 69 Respiratory Rate 17 22 18 Blood Pressure 127/65 122/62 Pulse Oximetry 90 L 91 L 91 L 08/16/18 11:00 08/16/18 11:15 08/16/18 12:00 Temperature 98.1 F Pulse Rate 64 67 62 Respiratory Rate 15 20 14 Blood Pressure 128/68 106/59 L Pulse Oximetry 95 95 Intake & Output 08/15/18 08/16/18 08/16/18 18:59 06:59 18:59 Intake Total 700 / 700 350 / 350 100 / 100 Output Total 1550 / 1550 700 / 700 Balance -850 / -850 -350 / -350 100 / 100 Weight 70.3 kg Intake: IV 100 / 100 350 / 350 100 / 100 Maxipime Inj 1,000 MG In NS Inj 100 / 100 200 / 200 100 / 100 100 ML @ 200 mls/hr IV.SIG Q8H [facility] Rx#:[id number] Levaquin 750 mg Premix Inj 150 150 / 150 ML @ 100 mls/hr IV.SIG Q48H [facility] Rx#:[id number] Oral 600 / 600 Output: Urine 1550 / 1550 700 / 700 Stool 0 / 0 Other: Date of Last Bowel Movement 08/14/18 08/14/18 08/14/18 Narrative: GENERAL: Well-developed, well-nourished patient in NAD. On supplemental O2. SKIN: Warm and dry. No rash. HEAD: Normocephalic. Atraumatic. EYES: Pupils equal and round. No scleral icterus. No injection or drainage. ENT: No nasal bleeding or discharge. Mucous membranes pink and moist. NECK: Supple. Trachea midline. CARDIOVASCULAR: Regular rate and rhythm. S1, S2 noted. No murmur appreciated. RESPIRATORY: No accessory muscle use. Rhonchi throughout. Breath sounds equal bilaterally. GASTROINTESTINAL: Abdomen soft, non-tender, nondistended. Normoactive bowel sounds x4. MUSCULOSKELETAL: No obvious deformities. Extremities without clubbing, cyanosis , or edema. NEUROLOGICAL: Awake and alert. No obvious cranial nerve deficits. Motor grossly within normal limits. 5/5 muscle strength in bilateral upper and lower extremities. Normal speech. PSYCHIATRIC: Appropriate mood and affect; insight and judgment normal. Results - Labs CBC & Chem 7: 08/16/18 06:05 08/16/18 06:05 Laboratory Results - last 24 hr 08/15/18 08/15/18 08/16/18 16:26 21:21 01:41 CBC w Diff WBC RBC Hgb Hct MCV MCH MCHC RDW Plt Count MPV Neut % (Auto) Lymph % (Auto) [place] % (Auto) Eos % (Auto) Baso % (Auto) Neut # (Auto) Lymph # (Auto) [place] # (Auto) Eos # (Auto) Baso # (Auto) WBC Differential Differential Comment Sodium Potassium Chloride Carbon Dioxide Anion Gap BUN Creatinine Estimated GFR POC Glucose 471 H* 394 H 295 H Random Glucose Calcium 08/16/18 08/16/18 08/16/18 06:05 06:05 07:44 CBC w Diff Auto diff final WBC 20.9 H RBC 4.39 L Hgb 12.6 L Hct 38.2 L MCV 87.0 MCH 28.7 MCHC 33.0 RDW 13.3 Plt Count 217 MPV 8.2 Neut % (Auto) 93.0 H Lymph % (Auto) 3.4 L [place] % (Auto) 2.7 Eos % (Auto) 0.1 Baso % (Auto) 0.8 Neut # (Auto) 19.4 H Lymph # (Auto) 0.7 L [place] # (Auto) 0.6 Eos # (Auto) 0.0 Baso # (Auto) 0.2 WBC Differential . Differential Comment . Sodium 137 Potassium 4.0 Chloride 104 Carbon Dioxide 23.1 Anion Gap 10 BUN 70 H Creatinine 1.60 H Estimated GFR 42 L POC Glucose 309 H Random Glucose 286 H Calcium 8.7 08/16/18 12:15 CBC w Diff WBC RBC Hgb Hct MCV MCH MCHC RDW Plt Count MPV Neut % (Auto) Lymph % (Auto) [place] % (Auto) Eos % (Auto) Baso % (Auto) Neut # (Auto) Lymph # (Auto) [place] # (Auto) Eos # (Auto) Baso # (Auto) WBC Differential Differential Comment Sodium Potassium Chloride Carbon Dioxide Anion Gap BUN Creatinine Estimated GFR POC Glucose 337 H Random Glucose Calcium - Imaging Impressions Chest X-Ray 08/16/18 06:00 CONCLUSION: No significant change in the bilateral coarse patchy airspace opacities. Assessment and Plan - Plan respiratory failure copd plan o2 as needed bronchodilator therapy increase activity
[2018-08-16] MEDS: guaiFENesin 600 MG ER Tablet PO SCH (21:25)
[2018-08-17] MEDS: Insulin NovoLOG Aspart Correctional Sugar Inj SQ SCH ×5 (03:16→21:18)
[2018-08-17 04:47] LABS: Potassium 4.1 meq/L (3.5-5.1)
[2018-08-17 04:50] LABS: Calcium 8.3 mg/dL (8.5-10.1); Carbon Dioxide 23.6 meq/L (21.0-32.0)
--- NOTE | 2018-08-17 07:43 | P.PNIM ---
Subjective Interval history: Follow-up COPD exacerbation and pneumonia. Patient seen and examined, sitting up in bed comfortably no apparent distress. Still continued on 5 L nasal cannula. Used BiPAP overnight. Does still complain of significant shortness of breath with activity. Continued with PT today. Ultimately will probably need rehab. Await for clinical improvement. Vital signs stable. Afebrile. Physical Exam Vital signs: Vital Signs 08/16/18 08:00 08/16/18 09:00 08/16/18 10:00 Temperature 97.9 F 97.9 F 97.9 F Pulse Rate 62 69 Respiratory Rate 17 22 18 Blood Pressure 127/65 122/62 Pulse Oximetry 90 L 91 L 91 L 08/16/18 10:23 08/16/18 11:00 08/16/18 11:15 Temperature Pulse Rate 64 64 67 Respiratory Rate 15 20 Blood Pressure 128/68 Pulse Oximetry 95 08/16/18 12:00 08/16/18 13:00 08/16/18 14:00 Temperature 98.1 F Pulse Rate 62 68 64 Respiratory Rate 14 26 H 22 Blood Pressure 106/59 L 114/60 102/58 L Pulse Oximetry 95 89 L 94 L 08/16/18 15:00 08/16/18 15:27 08/16/18 16:00 Temperature Pulse Rate 64 62 62 Respiratory Rate 24 20 17 Blood Pressure 117/66 106/68 Pulse Oximetry 91 L 93 L 08/16/18 17:00 08/16/18 18:00 08/16/18 19:00 Temperature 97.7 F Pulse Rate 62 70 68 Respiratory Rate 18 27 H 20 Blood Pressure 112/66 127/67 116/65 Pulse Oximetry 97 88 L 94 L 08/16/18 19:46 08/16/18 20:00 08/16/18 21:00 Temperature Pulse Rate 75 74 66 Respiratory Rate 22 22 17 Blood Pressure 125/76 131/66 Pulse Oximetry 92 L 92 L 93 L 08/16/18 21:30 08/16/18 21:59 08/16/18 22:00 Temperature Pulse Rate 76 64 Respiratory Rate 19 Blood Pressure 121/67 Pulse Oximetry 96 96 08/16/18 22:01 08/16/18 23:00 08/17/18 00:00 Temperature 96.8 F L Pulse Rate 64 68 Respiratory Rate 15 17 Blood Pressure 121/67 140/67 139/69 Pulse Oximetry 95 95 08/17/18 00:21 08/17/18 01:00 08/17/18 02:00 Temperature Pulse Rate 66 66 68 Respiratory Rate 20 15 14 Blood Pressure 137/69 145/69 H Pulse Oximetry 96 96 95 08/17/18 03:00 08/17/18 03:48 08/17/18 03:51 Temperature Pulse Rate 64 66 Respiratory Rate 14 18 Blood Pressure 124/69 Pulse Oximetry 95 94 L 08/17/18 04:00 08/17/18 04:01 08/17/18 05:00 Temperature 97.4 F L Pulse Rate 64 66 Respiratory Rate 17 18 Blood Pressure 129/67 129/67 140/70 Pulse Oximetry 96 93 L 08/17/18 06:00 08/17/18 07:01 Temperature Pulse Rate 60 64 Respiratory Rate 14 17 Blood Pressure 120/64 141/75 H Pulse Oximetry 97 93 L Intake & Output 08/16/18 08/17/18 08/17/18 18:59 06:59 18:59 Intake Total 820 / 820 200 / 200 Output Total 1700 / 1700 1000 / 1000 Balance -880 / -880 -800 / -800 Weight 70.7 kg Intake: IV 100 / 100 200 / 200 Maxipime Inj 1,000 MG In NS Inj 100 / 100 200 / 200 100 ML @ 200 mls/hr IV.SIG Q8H [facility] Rx#:[id number] Oral 720 / 720 Output: Urine 1700 / 1700 1000 / 1000 Other: Date of Last Bowel Movement 08/14/18 08/14/18 Narrative: GENERAL: Well-developed, well-nourished patient in NAD. On supplemental O2. SKIN: Warm and dry. No rash. HEAD: Normocephalic. Atraumatic. EYES: Pupils equal and round. No scleral icterus. No injection or drainage. ENT: No nasal bleeding or discharge. Mucous membranes pink and moist. NECK: Supple. Trachea midline. CARDIOVASCULAR: Regular rate and rhythm. S1, S2 noted. No murmur appreciated. RESPIRATORY: No accessory muscle use.rhonchi throughout posterior lower lung thrasher. Breath sounds equal bilaterally. GASTROINTESTINAL: Abdomen soft, non-tender, nondistended. Normoactive bowel sounds x4. MUSCULOSKELETAL: No obvious deformities. Extremities without clubbing, cyanosis , or edema. NEUROLOGICAL: Awake and alert. No obvious cranial nerve deficits. Motor grossly within normal limits. 5/5 muscle strength in bilateral upper and lower extremities. Normal speech. PSYCHIATRIC: Appropriate mood and affect; insight and judgment normal. Results - Labs CBC & Chem 7: 08/16/18 06:05 08/17/18 04:20 Laboratory Results - last 24 hr 08/16/18 08/16/18 08/16/18 07:44 12:15 17:00 Sodium Potassium Chloride Carbon Dioxide Anion Gap BUN Creatinine Estimated GFR POC Glucose 309 H 337 H 348 H Random Glucose Calcium 08/16/18 08/17/18 08/17/18 21:21 03:12 04:20 Sodium 137 Potassium 4.1 Chloride 104 Carbon Dioxide 23.6 Anion Gap 9 BUN 64 H Creatinine 1.60 H Estimated GFR 42 L POC Glucose 379 H 242 H Random Glucose 250 H Calcium 8.3 L 08/17/18 07:41 Sodium Potassium Chloride Carbon Dioxide Anion Gap BUN Creatinine Estimated GFR POC Glucose 245 H Random Glucose Calcium Assessment and Plan - Assessment (1) Acute respiratory failure with hypoxia Code(s): J96.01 - Acute respiratory failure with hypoxia Status: Acute (2) COPD exacerbation Code(s): J44.1 - Chronic obstructive pulmonary disease with (acute) exacerbation Status: Acute (3) Pneumonia Code(s): J18.9 - Pneumonia, unspecified organism Status: Acute - Plan This is a 78-year-old male patient with: Acute on chronic respiratory failure with hypoxia COPD in exacerbation Healthcare associated pneumonia -Patient presents with shortness of breath times 5 days. -Recent admission and discharged on antibiotics as well as prednisone. Uses 4 L home O2. Currently requiring 5 L nasal cannula. -Continue supplemental O2 as needed to keep oxygen saturations greater than 90%. -Chest x-ray reviewed showing left upper lobe pneumonia, this is possibly secondary to recent hospitalization. Patient started on Cefepime, will continue. -Patient did present with leukocytosis with white blood cell the 20,000 although patient has been on steroids at home this could be contributing to the elevation. Will continue to monitor. Has been afebrile. -Methylprednisone IV, wean. Continue Mucinex. Duo nebs scheduled. -Pulmonary toilet. Incentive spirometer. Supportive care. -Manufacturing Assistant has been consulted, input and recommendations appreciated. Bipap HS. Chronic kidney disease stage III -Creating 1.6/GFR 42. After review of medical records it appears that this could be his baseline renal function -Continue monitor renal function -Avoid nephrotoxins Type 2 diabetes, chronic: Will continue Accu-Chek before meals at bedtime, sliding scale, cover as needed. Monitor blood sugar trends. Especially on steroids. Blood sugars have been elevated secondary to steroids. Will increase to medium sliding scale dose and wean steroids 40 mg IV daily. Hypertension, chronic: Will continue home blood pressure medications. Monitor blood pressure trends. 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 DVT prophylaxis: SCDs. Eliquis. Discharge Planning: Await clinical improvement, still requiring 5LNC. Will probably ultimately need rehab upon discharge. (3) Pneumonia Qualifiers: Pneumonia type: due to unspecified organism Laterality: left Lung location: upper lobe of lung Qualified Code(s): J18.1 - Lobar pneumonia, unspecified organism
[2018-08-17] MEDS: Carvedilol 12.5 MG Tablet PO SCH ×2 (09:15→20:08)
[2018-08-17] MEDS: Gabapentin 300 MG Capsule PO SCH ×3 (09:16→17:43)
[2018-08-17] MEDS: amLODIPine 10 MG Tablet PO SCH (09:16)
[2018-08-17] MEDS: guaiFENesin 600 MG ER Tablet PO SCH ×2 (09:16→20:10)
[2018-08-17] MEDS: MethylPREDNISolone Sod Succinate Inj 40 MG/ML Vial IV.PUSH SCH (09:18)
[2018-08-17] MEDS: Senna/Docusate Sodium 8.6/50 MG Tablet PO SCH ×2 (10:35→20:05)
--- NOTE | 2018-08-17 19:23 | P.PN ---
Subjective Interval history: he is on 5 L o2 still. Breathing better. No fever. Still weak and needs rehab. Physical Exam Vital signs: Vital Signs 08/16/18 19:46 08/16/18 20:00 08/16/18 21:00 Temperature Pulse Rate 75 74 66 Respiratory Rate 22 22 17 Blood Pressure 125/76 131/66 Pulse Oximetry 92 L 92 L 93 L 08/16/18 21:30 08/16/18 21:59 08/16/18 22:00 Temperature Pulse Rate 76 64 Respiratory Rate 19 Blood Pressure 121/67 Pulse Oximetry 96 96 08/16/18 22:01 08/16/18 23:00 08/17/18 00:00 Temperature 96.8 F L Pulse Rate 64 68 Respiratory Rate 15 17 Blood Pressure 121/67 140/67 139/69 Pulse Oximetry 95 95 08/17/18 00:21 08/17/18 01:00 08/17/18 02:00 Temperature Pulse Rate 66 66 68 Respiratory Rate 20 15 14 Blood Pressure 137/69 145/69 H Pulse Oximetry 96 96 95 08/17/18 03:00 08/17/18 03:48 08/17/18 03:51 Temperature Pulse Rate 64 66 Respiratory Rate 14 18 Blood Pressure 124/69 Pulse Oximetry 95 94 L 08/17/18 04:00 08/17/18 04:01 08/17/18 05:00 Temperature 97.4 F L Pulse Rate 64 66 Respiratory Rate 17 18 Blood Pressure 129/67 129/67 140/70 Pulse Oximetry 96 93 L 08/17/18 06:00 08/17/18 07:01 08/17/18 07:45 Temperature Pulse Rate 60 64 70 Respiratory Rate 14 17 20 Blood Pressure 120/64 141/75 H 158/74 H Pulse Oximetry 97 93 L 90 L 08/17/18 07:46 08/17/18 08:00 08/17/18 08:01 Temperature 98.5 F Pulse Rate 70 74 66 Respiratory Rate 22 20 21 Blood Pressure 151/73 H 158/74 H 131/66 Pulse Oximetry 90 L 93 L 94 L 08/17/18 09:00 08/17/18 09:01 08/17/18 10:01 Temperature Pulse Rate 66 70 78 Respiratory Rate 19 23 Blood Pressure 135/70 147/69 H Pulse Oximetry 90 L 88 L 08/17/18 11:01 08/17/18 12:00 08/17/18 12:01 Temperature 98.4 F Pulse Rate 68 68 70 Respiratory Rate 21 20 23 Blood Pressure 134/65 134/64 134/64 Pulse Oximetry 95 92 L 92 L 08/17/18 13:01 08/17/18 14:01 08/17/18 15:01 Temperature Pulse Rate 68 70 68 Respiratory Rate 26 H 23 27 H Blood Pressure 112/60 124/64 108/66 Pulse Oximetry 91 L 92 L 92 L 08/17/18 16:00 08/17/18 16:01 08/17/18 17:01 Temperature 97.3 F L Pulse Rate 65 68 62 Respiratory Rate 20 26 H 17 Blood Pressure 119/57 L 119/57 L 124/54 L Pulse Oximetry 96 92 L 95 08/17/18 18:01 Temperature Pulse Rate 66 Respiratory Rate 19 Blood Pressure 130/60 Pulse Oximetry 93 L Intake & Output 08/17/18 08/17/18 08/18/18 06:59 18:59 06:59 Intake Total 200 / 200 1060 / 1060 Output Total 1000 / 1000 2750 / 2750 Balance -800 / -800 -1690 / -1690 Weight 70.7 kg Intake: IV 200 / 200 100 / 100 Maxipime Inj 1,000 MG In NS Inj 200 / 200 100 / 100 100 ML @ 200 mls/hr IV.SIG Q8H [facility] Rx#:[id number] Oral 960 / 960 Output: Urine 1000 / 1000 2750 / 2750 Other: Date of Last Bowel Movement 08/14/18 08/14/18 Narrative: GENERAL: Well-developed, Elderly W/M in NAD. On supplemental O2. SKIN: Warm and dry. No rash. HEAD: Normocephalic. Atraumatic. EYES: Pupils equal and round. No scleral icterus. No injection or drainage. ENT: No nasal bleeding or discharge. Mucous membranes pink and moist. NECK: Supple. Trachea midline. CARDIOVASCULAR: Regular rate and rhythm. S1, S2 noted. No murmur appreciated. RESPIRATORY: No accessory muscle use. Has Basal crackles and rhonchi throughout posterior lower lung thrasher. Breath sounds equal bilaterally. GASTROINTESTINAL: Abdomen soft, non-tender, nondistended. Normoactive bowel sounds x4. MUSCULOSKELETAL: No obvious deformities. Extremities without clubbing, cyanosis , or edema. NEUROLOGICAL: Awake and alert. No obvious cranial nerve deficits. Motor grossly within normal limits. Normal speech. PSYCHIATRIC: Appropriate mood and affect; insight and judgment normal. Results - Labs CBC & Chem 7: 08/16/18 06:05 08/17/18 04:20 Laboratory Results - last 24 hr 08/16/18 08/17/18 08/17/18 21:21 03:12 04:20 Sodium 137 Potassium 4.1 Chloride 104 Carbon Dioxide 23.6 Anion Gap 9 BUN 64 H Creatinine 1.60 H Estimated GFR 42 L POC Glucose 379 H 242 H Random Glucose 250 H Calcium 8.3 L 08/17/18 08/17/18 08/17/18 07:41 12:18 16:55 Sodium Potassium Chloride Carbon Dioxide Anion Gap BUN Creatinine Estimated GFR POC Glucose 245 H 340 H 334 H Random Glucose Calcium Assessment and Plan - Assessment (1) Pulmonary fibrosis Code(s): J84.10 - Pulmonary fibrosis, unspecified Status: Acute (2) Anxiety Code(s): F41.9 - Anxiety disorder, unspecified Status: Acute (3) Acute respiratory failure with hypoxia Code(s): J96.01 - Acute respiratory failure with hypoxia Status: Acute (4) COPD exacerbation Code(s): J44.1 - Chronic obstructive pulmonary disease with (acute) exacerbation Status: Acute (5) Acute and chronic respiratory failure with hypoxia Code(s): J96.21 - Acute and chronic respiratory failure with hypoxia Status: Acute (6) Pneumonia Code(s): J18.9 - Pneumonia, unspecified organism Status: Acute (7) Physical deconditioning Code(s): R53.81 - Other malaise Status: Acute - Plan 1. Will taper O2 to 4 L. 2. Nebs qid , duoneb 3. Continue Symbicort 160/4.5 mcg , 2 puffs BID 4. needs rehab placement. 5. Up with help 6. Transfer to tele. 7. BIPAP at HS 12/5 CM , fio2 35 % 8. D/C Solumderol and add Prednisone 20 mg BID (6) Pneumonia Qualifiers: Pneumonia type: due to unspecified organism Laterality: left Lung location: upper lobe of lung Qualified Code(s): J18.1 - Lobar pneumonia, unspecified organism
[2018-08-17] MEDS: predniSONE 20 MG Tablet PO SCH (20:07)
[2018-08-18] MEDS: Insulin NovoLOG Aspart Correctional Sugar Inj SQ SCH ×5 (04:00→21:11)
[2018-08-18] MEDS: Senna/Docusate Sodium 8.6/50 MG Tablet PO SCH ×2 (08:31→21:12)
[2018-08-18] MEDS: predniSONE 20 MG Tablet PO SCH ×2 (08:31→21:12)
[2018-08-18] MEDS: guaiFENesin 600 MG ER Tablet PO SCH ×2 (08:31→21:12)
[2018-08-18] MEDS: amLODIPine 10 MG Tablet PO SCH (08:31)
[2018-08-18] MEDS: Gabapentin 300 MG Capsule PO SCH ×3 (08:32→17:40)
[2018-08-18] MEDS: Carvedilol 12.5 MG Tablet PO SCH ×2 (08:32→21:12)
[2018-08-18] MEDS ORDERED: MethylPREDNISolone Sod Succinate Inj 40 MG/ML Vial IV.PUSH SCH (09:00)
--- NOTE | 2018-08-18 15:25 | P.PN ---
Subjective Interval history: 78-year-old male with who is seen in follow-up on chronic hypoxic respiratory failure. Patient is sitting in chair very weak. He is down to 4-5 L of nasal cannula during the day, still requiring BiPAP at night. Patient states he does not feel improved. Vital signs appear to be stable. Patient afebrile Physical Exam Vital signs: Vital Signs 08/17/18 16:00 08/17/18 16:01 08/17/18 17:01 Temperature 97.3 F L Pulse Rate 65 68 62 Respiratory Rate 20 26 H 17 Blood Pressure 119/57 L 119/57 L 124/54 L Pulse Oximetry 96 92 L 95 08/17/18 18:01 08/17/18 19:50 08/17/18 20:00 Temperature 97.4 F L Pulse Rate 66 79 69 Respiratory Rate 19 24 19 Blood Pressure 130/60 123/64 Pulse Oximetry 93 L 93 L 94 L 08/17/18 21:00 08/17/18 23:00 08/17/18 23:40 Temperature Pulse Rate 69 65 Respiratory Rate 14 Blood Pressure Pulse Oximetry 94 L 08/18/18 00:00 08/18/18 03:05 08/18/18 04:00 Temperature 98.2 F 98.6 F Pulse Rate 65 80 Respiratory Rate 16 17 Blood Pressure 148/75 H 166/105 H Pulse Oximetry 93 L 94 L 97 08/18/18 07:44 08/18/18 08:00 08/18/18 09:00 Temperature 97.5 F L Pulse Rate 66 68 Respiratory Rate 22 21 Blood Pressure 141/75 H 135/73 Pulse Oximetry 95 92 L 92 L 08/18/18 10:00 08/18/18 11:12 Temperature Pulse Rate 72 Respiratory Rate 20 Blood Pressure 125/72 Pulse Oximetry 92 L 92 L Intake & Output 08/17/18 08/18/18 08/18/18 18:59 06:59 18:59 Intake Total 1060 / 1060 920 / 920 Output Total 2750 / 2750 1350 / 1350 Balance -1690 / -1690 -430 / -430 Weight 70.5 kg Intake: IV 100 / 100 200 / 200 Maxipime Inj 1,000 MG In NS Inj 100 / 100 200 / 200 100 ML @ 200 mls/hr IV.SIG Q8H [facility] Rx#:[id number] Oral 960 / 960 720 / 720 Output: Urine 2750 / 2750 Urine Amount (Catheter) 1350 / 1350 Condom 1350 / 1350 Other: Date of Last Bowel Movement 08/14/18 08/14/18 08/14/18 Weight On Admission 68.5 kg Narrative: GENERAL: Well-developed, well-nourished, in no acute distress. alert and orientated HEENT: Head is normocephalic without any lesions or masses noted. Facial features are symmetric. Eyes: Extraocular muscles are intact. Conjunctivae were clear. NECK: Supple without any masses. Trachea midline no deviation. No JVD, CARDIAC: Regular rhythm, regular rate. S1/S2 are heard. No murmurs gallops or rubs. LUNGS: Diminished breath sounds noted throughout. No wheeze, rhonchi or rales. No use of accessory muscles on inspiration or expiration. ABDOMEN: Soft, nontender. Nondistended. Bowel sounds heard in all 4 quadrants. No organomegaly or masses. Negative rebound, negative guarding EXTREMITIES: No edema, pulses are equal bilaterally. No cyanosis or clubbing NEUROLOGY: Mood and affect appear appropriate. Cranial nerves II through XII grossly intact. Moving all extremities, speech is clear - Urinary Catheter Management Condom Cath placed during this visit: no Results - Labs CBC & Chem 7: 08/16/18 06:05 08/17/18 04:20 Laboratory Results - last 24 hr 08/17/18 08/17/18 08/18/18 16:55 20:30 03:57 POC Glucose 334 H 329 H 164 H 08/18/18 08/18/18 08:25 11:51 POC Glucose 238 H 309 H Assessment and Plan - Assessment (1) Acute respiratory failure with hypoxia Code(s): J96.01 - Acute respiratory failure with hypoxia Status: Acute (2) COPD exacerbation Code(s): J44.1 - Chronic obstructive pulmonary disease with (acute) exacerbation Status: Acute (3) Pneumonia Code(s): J18.9 - Pneumonia, unspecified organism Status: Acute - Plan Acute on chronic respiratory failure with hypoxia -Possible secondary to COPD exacerbation or possibly healthcare associated pneumonia -We will continue O2 supplementation maintain O2 sats greater than 88%, patient requiring BiPAP at night to maintain O2 saturation -Continue nebulizer treatments -Patient has been weaned to prednisone 20 mg p.o. twice daily -Setter Cold Rolling Machine following the patient Healthcare associated pneumonia, possible -Chest x-rays all indicate patchy airspace disease in the left lung with mild worsening from previous hospitalization -Patient continued on cefepime -Obtain sputum culture Chronic kidney disease stage III -Continue monitor renal function -Avoid nephrotoxins Type 2 diabetes, chronic: -Continue Accu-Chek before meals at bedtime, sliding scale, cover as needed. -Diabetic diet Hypertension, chronic: -Continue home blood pressure medications. Monitor blood pressure trends. History of DVT and PE: -Eliquis has been continued. (3) Pneumonia Qualifiers: Pneumonia type: due to unspecified organism Laterality: left Lung location: upper lobe of lung Qualified Code(s): J18.1 - Lobar pneumonia, unspecified organism
--- NOTE | 2018-08-18 18:03 | P.PN ---
Subjective Interval history: he is better. On O12 4.5 L. Still has some leg edema.No fever. Needs rehab placement. Physical Exam Vital signs: Vital Signs 08/17/18 18:01 08/17/18 19:50 08/17/18 20:00 Temperature 97.4 F L Pulse Rate 66 79 69 Respiratory Rate 19 24 19 Blood Pressure 130/60 123/64 Pulse Oximetry 93 L 93 L 94 L 08/17/18 21:00 08/17/18 23:00 08/17/18 23:40 Temperature Pulse Rate 69 65 Respiratory Rate 14 Blood Pressure Pulse Oximetry 94 L 08/18/18 00:00 08/18/18 03:05 08/18/18 04:00 Temperature 98.2 F 98.6 F Pulse Rate 65 80 Respiratory Rate 16 17 Blood Pressure 148/75 H 166/105 H Pulse Oximetry 93 L 94 L 97 08/18/18 07:44 08/18/18 08:00 08/18/18 09:00 Temperature 97.5 F L Pulse Rate 66 68 Respiratory Rate 22 21 Blood Pressure 141/75 H 135/73 Pulse Oximetry 95 92 L 92 L 08/18/18 10:00 08/18/18 11:12 08/18/18 12:00 Temperature 97.8 F Pulse Rate 72 66 Respiratory Rate 20 24 Blood Pressure 125/72 123/68 Pulse Oximetry 92 L 92 L 93 L 08/18/18 13:00 08/18/18 14:00 08/18/18 15:00 Temperature Pulse Rate 74 68 64 Respiratory Rate 20 22 15 Blood Pressure 124/70 131/62 136/66 Pulse Oximetry 92 L 95 94 L 08/18/18 15:27 Temperature Pulse Rate 66 Respiratory Rate 22 Blood Pressure Pulse Oximetry Intake & Output 08/17/18 08/18/18 08/18/18 18:59 06:59 18:59 Intake Total 1060 / 1060 920 / 920 Output Total 2750 / 2750 1350 / 1350 Balance -1690 / -1690 -430 / -430 Weight 70.5 kg Intake: IV 100 / 100 200 / 200 Maxipime Inj 1,000 MG In NS Inj 100 / 100 200 / 200 100 ML @ 200 mls/hr IV.SIG Q8H [facility] Rx#:[id number] Oral 960 / 960 720 / 720 Output: Urine 2750 / 2750 Urine Amount (Catheter) 1350 / 1350 Condom 1350 / 1350 Other: Date of Last Bowel Movement 08/14/18 08/14/18 08/14/18 Weight On Admission 68.5 kg Narrative: GENERAL: Well-developed, well-nourished W/M , in no acute distress. alert and oriented HEENT: Head is normocephalic without any lesions or masses noted. Facial features are symmetric. Eyes: Extraocular muscles are intact. Conjunctivae were clear. NECK: Supple without any masses. Trachea midline no deviation. No JVD, CARDIAC: Regular rhythm, regular rate. S1/S2 are heard. No murmurs gallops or rubs. LUNGS: Diminished breath sounds noted throughout. Has basal crackles. No use of accessory muscles on inspiration or expiration. ABDOMEN: Soft, nontender. Nondistended. Bowel sounds heard in all 4 quadrants. No organomegaly or masses. Negative rebound, negative guarding EXTREMITIES: 1 + edema, pulses are equal bilaterally. No cyanosis or clubbing NEUROLOGY: Mood and affect appear appropriate. Moving all extremities, speech is clear - Urinary Catheter Management Condom Cath placed during this visit: no Results - Labs CBC & Chem 7: 08/16/18 06:05 08/17/18 04:20 Laboratory Results - last 24 hr 08/17/18 08/18/18 08/18/18 20:30 03:57 08:25 POC Glucose 329 H 164 H 238 H 08/18/18 08/18/18 11:51 16:59 POC Glucose 309 H 195 H Assessment and Plan - Assessment (1) Pulmonary fibrosis Code(s): J84.10 - Pulmonary fibrosis, unspecified Status: Acute (2) Anxiety Code(s): F41.9 - Anxiety disorder, unspecified Status: Acute (3) Acute respiratory failure with hypoxia Code(s): J96.01 - Acute respiratory failure with hypoxia Status: Acute (4) COPD exacerbation Code(s): J44.1 - Chronic obstructive pulmonary disease with (acute) exacerbation Status: Acute (5) Acute and chronic respiratory failure with hypoxia Code(s): J96.21 - Acute and chronic respiratory failure with hypoxia Status: Acute (6) Pneumonia Code(s): J18.9 - Pneumonia, unspecified organism Status: Acute (7) Physical deconditioning Code(s): R53.81 - Other malaise Status: Acute - Plan 1. Will taper O2 to 4 L. 2. Nebs qid , duoneb 3. Continue Symbicort 160/4.5 mcg , 2 puffs BID 4. needs rehab placement. 5. CBC,BMP 6. Continue cefipime 1 G IV Q8H 7. BIPAP at HS 12/5 CM , fio2 35 % 8. Prednisone 20 mg BID (6) Pneumonia Qualifiers: Pneumonia type: due to unspecified organism Laterality: left Lung location: upper lobe of lung Qualified Code(s): J18.1 - Lobar pneumonia, unspecified organism
[2018-08-19] MEDS: Insulin NovoLOG Aspart Correctional Sugar Inj SQ SCH ×3 (03:30→12:34)
[2018-08-19 05:04] LABS: Baso # (Auto) 0.3 th/mm3 (0.0-0.2); Baso % (Auto) 1.7 % (0.0-2.0); Eos # (Auto) 0.1 th/mm3 (0.0-0.4); Eos % (Auto) 0.4 % (0.0-4.0); Hematocrit 39.2 % (39.0-51.0); Hemoglobin 13.1 gm/dL (13.0-17.0); Lymph # (Auto) 0.9 th/mm3 (1.0-4.8); Lymph % (Auto) 5.1 % (9.0-44.0); Mean Corpuscular HGB Conc 33.5 % (32.0-36.0); Mean Corpuscular Hemoglobin 29.2 pg (27.0-34.0); Mean Corpuscular Volume 87.2 fL (80.0-100.0); Mean Platelet Volume 8.7 fL (7.0-11.0); Mono # (Auto) 0.9 th/mm3 (0.0-0.9); Mono % (Auto) 4.8 % (0.0-8.0); Neut # (Auto) 15.7 th/mm3 (1.8-7.7); Platelet Count 249 th/mm3 (150-450); Red Cell Distribution Width 13.4 % (11.6-17.2); White Blood Count 17.9 th/mm3 (4.0-11.0)
[2018-08-19 05:11] LABS: Potassium 4.8 meq/L (3.5-5.1)
[2018-08-19 05:13] LABS: Calcium 8.6 mg/dL (8.5-10.1); Carbon Dioxide 29.5 meq/L (21.0-32.0)
[2018-08-19] MEDS: Gabapentin 300 MG Capsule PO SCH ×2 (09:14→12:34)
[2018-08-19] MEDS: Carvedilol 12.5 MG Tablet PO SCH (09:14)
[2018-08-19] MEDS: amLODIPine 10 MG Tablet PO SCH (09:14)
[2018-08-19] MEDS: guaiFENesin 600 MG ER Tablet PO SCH (09:14)
[2018-08-19] MEDS: Senna/Docusate Sodium 8.6/50 MG Tablet PO SCH (09:15)
--- NOTE | 2018-08-19 11:03 | P.DS ---
Date of admission: 08/14/18 11:56 Primary care physician: Stephon Linder MD Attending physician on discharge: Any Torrez Anticipated date of discharge: 08/19/18 Brief History from admission: This is a 78-year-old male patient with a known medical history of chronic lung disease on home O2, history of DVT on Eliquis, hyperlipidemia, hypertension and diabetes who presented to the ED with complaints of shortness of breath. Patient was recently admitted to the hospital earlier this month, was discharged home on prednisone 5 mg as well as cefuroxime. Patient does state he finished complete dose. Despite finishing antibiotics and steroids patient has still continued complaints of shortness of breath and EMS found the patient to be with oxygen saturations in the 80s. Patient does use 4 L nasal cannula of oxygen at home, follows with machining and assembly supervisor, Dr. Pearson, and last saw him on Friday. At that time patient denies any new medications and was stable and over the course of the week he just felt continued shortness of breath. Patient denies any fevers, chills, cough, abdominal pain, nausea, vomiting, diarrhea or dysuria. Patient denies any chest pain or headache. He does admit to compliance with his medications. At the time of assessment patient is on 6 L nasal cannula, no accessory muscle use, no shortness of breath at the. On exam, rhonchi throughout lung thrasher. DS: Diagnosis - Discharge Diagnosis (1) Acute respiratory failure with hypoxia Status: Acute (2) COPD exacerbation Status: Acute (3) Pneumonia Status: Acute DS: Summary Hospital Course: 78-year-old male who is known to the hospital from recent admission with medical history of chronic lung disease, history of DVT, hypertension, hyperlipidemia, diabetes who represented to the hospital because of shortness of breath and difficulty breathing. Patient was just recently made in the hospital with a prolonged hospitalization due to hypoxic respiratory failure with chronic interstitial lung disease. Patient was discharged home on home oxygen at 4 L per nasal cannula, continued antibiotics, tapering steroid dose pack. Patient did take medications until complete. He has followed up with his machining and assembly supervisor. However the patient still having significant shortness of breath. Patient has significant weakness where he is having difficulty with ambulating. They called the ambulance who came and evaluated him at his home and found his O2 saturations to be in the 80 percentile. Patient was brought to the emergency department for evaluation. Patient had workup done and found to have continued hypoxic respiratory failure. Chest x-rays indicating bilateral patchy airspace disease. Patient was admitted to the ICU with supplemental oxygen, BiPAP as needed. By definition patient did have adult respiratory distress syndrome with bilateral infiltrates, increased PaO2 ratio. Patient was started on antibiotics to include cefepime, Solu-Medrol, nebulizer treatments. Patient tolerated treatment well and has been weaned down to 3.5-4 L oxygen per nasal cannula. Workup did not indicate any specific bacterial infection, gram stains indicating moderate mixed sarah with predominant gram-negative rods. Patient has clinically improved. Crop Grain Or Livestock Farmer did follow the patient during his stay in the hospital. Patient has been weaned to p.o. steroids. Case was discussed with machining and assembly supervisor to indicate patient can be discharged home with outpatient follow-up in 10 days. Patient did have physical therapy evaluation during his stay in the hospital, however he he was so weak it was recommended that he needs to go to rehab facility for continued care and management. Case management was consulted which plans for discharge to residential facility once arrangements made. - Time Spent with Patient Total time spent providing and/or coordinating discharge services: Greater than 30 minutes - Quality: VTE Deep Vein Thrombosis/Pulmonary Embolism Present on Admission: No Exam Vital signs: Vital Signs 08/18/18 11:12 08/18/18 12:00 08/18/18 13:00 Temperature 97.8 F Pulse Rate 66 74 Respiratory Rate 24 20 Blood Pressure 123/68 124/70 Pulse Oximetry 92 L 93 L 92 L 08/18/18 14:00 08/18/18 15:00 08/18/18 15:27 Temperature Pulse Rate 68 64 66 Respiratory Rate 22 15 22 Blood Pressure 131/62 136/66 Pulse Oximetry 95 94 L 08/18/18 16:00 08/18/18 17:00 08/18/18 18:00 Temperature 97.6 F Pulse Rate 64 58 L 64 Respiratory Rate 14 18 23 Blood Pressure 124/61 119/65 114/58 L Pulse Oximetry 95 96 93 L 08/18/18 19:28 08/18/18 20:00 08/18/18 21:00 Temperature 98.8 F Pulse Rate 68 68 68 Respiratory Rate 20 20 Blood Pressure 146/77 H Pulse Oximetry 92 L 92 L 08/18/18 23:45 08/19/18 00:00 08/19/18 03:30 Temperature 99.5 F Pulse Rate 62 62 67 Respiratory Rate 15 18 18 Blood Pressure 147/65 H Pulse Oximetry 96 08/19/18 04:00 08/19/18 07:46 08/19/18 08:06 Temperature 99.5 F Pulse Rate 68 69 Respiratory Rate 18 33 H Blood Pressure 129/69 Pulse Oximetry 92 L 96 08/19/18 08:13 Temperature Pulse Rate 68 Respiratory Rate 14 Blood Pressure Pulse Oximetry Intake & Output 08/18/18 08/19/18 08/19/18 18:59 06:59 18:59 Intake Total 1120 / 1120 680 / 680 Output Total 1750 / 1750 1750 / 1750 Balance -630 / -630 -1070 / -1070 Weight 68.7 kg Intake: IV 100 / 100 200 / 200 Maxipime Inj 1,000 MG In NS Inj 100 / 100 200 / 200 100 ML @ 200 mls/hr IV.SIG Q8H [facility] Rx#:[id number] Oral 1020 / 1020 480 / 480 Output: Urine 1750 / 1750 Urine Amount (Catheter) 1750 / 1750 Condom 1750 / 1750 Other: Date of Last Bowel Movement 08/14/18 08/18/18 Narrative: GENERAL: Well-developed, well-nourished, in no acute distress. alert and orientated HEENT: Head is normocephalic without any lesions or masses noted. Facial features are symmetric. Eyes: Extraocular muscles are intact. Conjunctivae were clear. NECK: Supple without any masses. Trachea midline no deviation. No JVD, CARDIAC: Regular rhythm, regular rate. S1/S2 are heard. No murmurs gallops or rubs. LUNGS: Diminished breath sounds noted throughout. No wheeze, rhonchi or rales. No use of accessory muscles on inspiration or expiration. ABDOMEN: Soft, nontender. Nondistended. Bowel sounds heard in all 4 quadrants. No organomegaly or masses. Negative rebound, negative guarding EXTREMITIES: No edema, pulses are equal bilaterally. No cyanosis or clubbing NEUROLOGY: Mood and affect appear appropriate. Cranial nerves II through XII grossly intact. Moving all extremities, speech is clear Results Procedures completed during hospitalization: none Labs on day of discharge: Labs from last 24 hours 08/19/18 08/19/18 08/19/18 08:02 04:37 04:37 CBC w Diff Auto diff final WBC 17.9 H RBC 4.50 Hgb 13.1 Hct 39.2 MCV 87.2 MCH 29.2 MCHC 33.5 RDW 13.4 Plt Count 249 MPV 8.7 Neut % (Auto) 88.0 H Lymph % (Auto) 5.1 L [place] % (Auto) 4.8 Eos % (Auto) 0.4 Baso % (Auto) 1.7 Neut # (Auto) 15.7 H Lymph # (Auto) 0.9 L [place] # (Auto) 0.9 Eos # (Auto) 0.1 Baso # (Auto) 0.3 H WBC Differential . Differential Comment . Sodium 138 Potassium 4.8 Chloride 102 Carbon Dioxide 29.5 Anion Gap 7 BUN 57 H Creatinine 1.40 H Estimated GFR 49 L POC Glucose 188 H Random Glucose 175 H Calcium 8.6 08/19/18 08/18/18 08/18/18 03:21 19:54 16:59 CBC w Diff WBC RBC Hgb Hct MCV MCH MCHC RDW Plt Count MPV Neut % (Auto) Lymph % (Auto) [place] % (Auto) Eos % (Auto) Baso % (Auto) Neut # (Auto) Lymph # (Auto) [place] # (Auto) Eos # (Auto) Baso # (Auto) WBC Differential Differential Comment Sodium Potassium Chloride Carbon Dioxide Anion Gap BUN Creatinine Estimated GFR POC Glucose 146 H 274 H 195 H Random Glucose Calcium 08/18/18 11:51 CBC w Diff WBC RBC Hgb Hct MCV MCH MCHC RDW Plt Count MPV Neut % (Auto) Lymph % (Auto) [place] % (Auto) Eos % (Auto) Baso % (Auto) Neut # (Auto) Lymph # (Auto) [place] # (Auto) Eos # (Auto) Baso # (Auto) WBC Differential Differential Comment Sodium Potassium Chloride Carbon Dioxide Anion Gap BUN Creatinine Estimated GFR POC Glucose 309 H Random Glucose Calcium - Impressions ITS Impressions Chest X-Ray 08/16/18 06:00 CONCLUSION: No significant change in the bilateral coarse patchy airspace opacities. Discharge Plan - Discharge Disposition Patient Disposition: 03 Discharge to SNF - Discharge Condition Condition: Stable - Discharge Order Discharge Orders: Discharge Order (Routine); Ordered 08/19/18 Ordered By: Avila Bethea - Discharge Details Anticipated Discharge Date: 08/19/18 Discharge Comment: Discharge to residential facility once arrangements made by case management - Physicians Team Primary Care Provider: Stephon Linder Attending Provider: Any Torrez Other Providers: Rohit Pearson MD ; [facility]
[2018-08-19] MEDS: predniSONE 20 MG Tablet PO SCH (11:08)
[2018-08-19 14:07] VITALS: BP 105/57; PULSE 66; RESP 21; TEMP 98.1; O2SAT 94
== END 2018-08-19 14:06 ==
LOC: PHED 16:45 → INTOOBSV 18:25 → PHEDA 18:25 → PHICU 19:25
PROVIDERS: ADMIT Internal Medicine; ATTEND Internal Medicine